=== PATIENT | female | born 1965 | race Caucasian/White ===

== ENCOUNTER 2019-04-30 19:55 | Emergency (ER) | payer SELFPAY ==
--- OUTSIDE RECORDS SUMMARY | 2019-04-30 20:01 | XMS REPORT | Continuity of Care Document ---
:1965 Author Organization [facility] Address [address] [place] [address] Allergies, Adverse Reactions, Alerts Allergen Type Severity Reaction Last Updated Verified Status Tramadol ([id number]) Allergy Unknown March 28, 2019 No Active Penicillins Allergy Unknown March 28, 2019 No Active ([id number]) Medications Medication Status Dose Units Route Sig Qty Days Start End Instructions Date Date Albuterol Discontinu 2 ORAL Every 1 March ed 4-6 , , SUBSTITUTE Hours 2019 2019 EQUIVALENT As 2:22pm COVERED BY Needed INSURANCE for Wheezi ng / Shortn ess Of Breath Albuterol Discontinu 3 RESPIRAT Every 30 March Albuterol 2.5 Sulfate ed ORY 4-6 , , mg/3 ml (INHALAT Hours 2019 2019 inhalation ION) As 2:19pm solution Needed as needed for Wheezi ng / Shortn ess Of Breath Azithromycin Discontinu 1 ORAL As 1 March TAKE 2 ed Direct , TABLETS ON ed for 2019 2019 DAY 1, THEN 1 Infect 2:19pm TABLET ON ion DAYS 2-5 Dextromethorp Discontinu 1 ORAL Twice 20 March [facility] ed Daily , , in * As 2019 2019 Needed 2:19pm as needed for Cough And Conges tion Methylprednisolone Discontinued 1 ORAL As Directed 13 March FOLLOW for 2019 INSTRUCTIONS Inflammation 2:22pm ON DOSEPAK (One-Time) Problems No problem information available. Procedures Procedure Date Performed Status X-ray of chest, two views March 28, 2019 completed Relevant Diagnostic Tests and/or Laboratory Data No known relevant diagnostic tests and/or laboratory data. Health Concerns No known health concerns documented Chief Complaint and Reason for Visit Chief Complaint Influenza Reason for Visit [id number] Encounters Encounter Location(s) Arrival/Admit Date Discharge/Depart Date Provider(s) Departed [place] March 28, 2019 March 28, 2019 RADHA LEBLANC MD Emergency Room [facility] 11:42am 2:44pm Ctr Assessments No Assessments Information Available Functional Status No Functional Status information available Goals No Goals Information Available Immunizations No Immunization Information Available Mental Status No Mental Status Information Available Medical Equipment No Medical Equipment Information available Insurance Providers Guarantor Wayne Kramer Address [address] [facility] [address] Contact Info. Home Phone: Payer Policy Id Coverage Id Subscriber's Subscriber Id Effective Expiration Name Date Date Self Pay Mariela Kramer Plan of Treatment CAN RETURN TO WORK TODAY, ELECTED BY PATIENT. ALBUTEROL FOR NEB & ALBUTEROL INHALER REFILLED. RX FOR ZITHROMAX, MEDROL DOSEPAK & MUCINEX-DM GIVEN. SEE YOUR PCP FOR RECHECK WITHIN 5 DAYS. TAKE TYLENOL & IBUPROFEN NEEDED FOR ACHES OR FEVER Future Tests Future scheduled test information is unavailable Pending Tests Pending diagnostic test information is unavailable Future Visits Future appointment information is unavailable Referrals to Other Providers Reason for Referral Start Provider Provider Contact Provider Address Referral Date Information PHYSICIAN, NO Future Procedures Future procedure information is unavailable Future Medications Future medication information is unavailable Patient Instructions Chronic Obstructive Pulmonary Disease Acute Bronchitis, Adult Social History Smoking Status Status Date of Observation Smokes tobacco daily (finding) March 28, 2019 12:06pm Assigned Sex Female Vital Signs Vital Reading Result Collection Date/Time
--- OUTSIDE RECORDS SUMMARY | 2019-04-30 20:03 | XMS REPORT ---
:1965 [facility] Address [address] [place] [address] Care Team Providers Name Role Phone Unavailable Unavailable Unavailable Problems This patient has no known problems. Allergies, Adverse Reactions, Alerts This patient has no known allergies or adverse reactions. Medications This patient has no known medications. Results Test Description Test Time Test Comments Text Results Atomic Results Result Comments NEG STREP SCRN CONFIRM CULT 2017-07-12 13:28:00 Test Item Value Reference Range Comments Report Text (test code=Report Text) [facility] 2017-07-11 1322 Report Text7 (test code=Report Text7) NORMAL RESPIRATORY TOÑO ISOLATED Report Text8 (test code=Report Text8) PRELIMINARY REPORT Report Text9 (test code=Report Text9) * Report Text10 (test code=Report Text10) [facility] 2017-07-12 1328 Report Text11 (test code=Report Text11) STREP SCREEN NEGATIVE, CULTURE NEGATIVE FOR Report Text12 (test code=Report Text12) GROUP A STREP - FINAL REPORT. VQ SCAN (VENT/LUNG PERFUSION)2017-07-11 20:00:[address] [id number] IMAGING REPORTPatient Name : WAYNE KRAMER MDate of Service: [id number]: 52 Sex: F Order #: [id number] Room:ERSDOB: 1965 X-Ray Number: [id number] Record Number: [id number] Hospital Number: [id number] Physician: Hermilo RANGELing Physician: Renae RAPHAEL ventilation/perfusion study: 8:00 PMHistory: Shortness of breathCorrelation with chest radiographs series dated: 07/11/2017Dosage:10.1 mCi xenon-133 for ventilation.5.0 mCi technetium 99m MAA for perfusion.Findings:There are no ventilation/perfusion mismatches in a distribution to suggestpulmonary embolism.Impression:Low probability for pulmonary embolism.Electronically Signed By: Arsalan Bailey M.D., 07/11/20177:58 PMLegally authenticated by FLOR ZAMUDIO 2017-07-11 19:58:20D- DIMER, [id number] 17:59:00 Test Item Value Reference Range Comments D-DIMER (test 0.88 ug/mL (FEU) 0.27-0.50 VALUES OF QUANTITATIVE D-DIMER code=DDIMER) LESS THAN 0.4 UG/ML HAVE BEEN REPORTED TO BE ASSOCIATED WITH A LOW PROBABILITY OF DEEP VEIN THROMBOSIS/PULMONARYEMBOLISM. THIS TEST ALONE SHOULD NOT BE USED TO RULE OUT DVT/PE. [id number] 17:58:00 Test Item Value Reference Range Comments SODIUM (test code=NA) 134 MMOL/L 137-145 K+ (test code=KSERUM) 5.0 MMOL/L 3.5-5.1 PLEASE NOTE NEW REFERENCE RANGE(S) IN EFFECT EFFECTIVE 10/15/2009 - NEW ANALYZER ([facility] 5600) CHLORIDE (test code=CL) 95 MMOL/L 98-107 CO2 (test code=CO2) 24 MMOL/L 22-30 BUN (test code=BUN) 28 MG/DL 7-17 CREA (test code=CREA) 1.2 MG/DL 0.7-1.2 GLUCOSE (test 286 MG/DL 70-99 Fasting glucose normal code=GLUCOSE) <100 MG/DL- [place] [employer] recommendation CALCIUM (test 10.2 MG/DL 8.4-10.2 code=CABLOOD) TOTPROT (test 7.6 G/DL 6.3-8.2 code=TOTPROT) ALBUMIN (test 4.3 G/DL 3.5-5.0 code=ALBSERUM) BILITOT (test 0.9 MG/DL 0.2-1.3 code=BILITOT) AST (test code=AST) 40 U/L 15-46 PHOSALK (test 437 U/L 38-126 code=PHOSALK) ALT (test code=ALT) 40 U/L 13-69 GFR (test code=GFR) 50 mL/min/1.73m2 A GFR of >90 mL/min/1.73m2 is considered normal. [id number] 17:46:00 Test Item Value Reference Range Comments GLUCOSE (test code=URGLU) NEGATIVE MG/DL NEG-100 BILIRUBN (test code=URBILI) NEGATIVE NEGATIVE KETONE (test code=URKET) NEGATIVE MG/DL NEGATIVE BLOOD (test code=URBLD) NEGATIVE UR PH (test code=URPH) 5.5 5.0-7.5 PROTEIN (test code=URPRO) TRACE MG/DL NEGATIVE NITRITES (test code=URNIT) NEGATIVE NEGATIVE UROBILINGEN (test code=URURO) 0.2 EU/DL 0.2-1.0 LEUKOCYT (test code=URLEU) NEGATIVE NEGATIVE UA COLOR (test code=UA COLOR) YELLOW YELLOW CLARITY (test code=CLARITY) CLEAR CLEAR SP GRAV (test code=URSPGRAV) >=1.030 1.000-1.025 UAMICRO (test code=UAMICRO) NO [id number] 17:46:00 Test Item Value Reference Range Comments WBC (test code=WBC) 9.4 K/UL 3.5-10.9 RBC (test code=RBC) 4.07 M/UL 4.0-5.0 HGB (test code=HGB) 13.0 G/DL 11.5-15.5 HCT (test code=HCT) 38.7 % 34-46 MCV (test code=MCV) 95.1 FL 80-98 MCH (test code=MCH) 31.9 PG 28-32 MCHC (test code=MCHC) 33.6 G/DL 32.5-36.5 RDW (test code=RDW) 16.0 % 11.5-14.5 PLT (test code=PLT) 233 K/UL 150-450 MPV (test code=MPV) 10.1 FL 7.4-10.4 MANDIFF (test code=MANDIFF) NO SCAN (test code=SCAN) NO NEUT% (test code=NEUT%) 80.4 % 40-75 LYMPH% (test code=LYMPH%) 14.0 % 24-44 MONO% (test code=MONO%) 5.1 % 0-13 EOS% (test code=EOS%) 0.0 % 0-4 BASO % (test code=BASO%) 0.2 % 0-2 IG% (test code=IG%) 0.3 % 0-1 IG%=Metamyelocytes, Myelocytes, and Promyelocytes. (Immature neutrophils not including "bands".) > 3% IG indicates risk of sepsis NRBC% (test code=NRBC%) 0 /100 WBC ABS NEUT (test code=NEUT) 7.6 K/UL 1.2-7.2 CHEST XR 2 [id number] 17:44:[address] [id number] IMAGING REPORTPatient Name: WAYNE KRAMER MDate of Service: [id number]: 52 Sex: F Order #: [id number] Room: ERSDOB: 1965 X-Ray Number: [id number] Record Number: [id number] Hospital Number: [id number] Physician: Hermilo RANGELing Physician: Lennie RAPHAEL 2 views 5:30 PMHISTORY: Fever, cough, shortness of breath, bronchitis.Comparisons: 07/10/2017FINDINGS:Heart size is normal.There is no focal lung consolidation.There is no definite pleural effusion or pneumothorax identified.There is emphysema present.There are old healed rib fracture deformities bilaterally.There is osteoporosis.IMPRESSION:No acute cardiopulmonary process.Electronically Signed By: Arsalan Bailey M.D., 2017 5:42 PMLegally authenticated by FLOR ZAMUDIO 2017-07-11 17:42:39CHEST XR 2 [id number] 07:19:[address] [id number] IMAGING REPORTPatient Name: WAYNE KRAMER MDate of Service: [id number]: 52 Sex: F Order #: [id number] Room:QERDOB: 1965 X-Ray Number: [id number] Record Number: [id number] Hospital Number: [id number] Physician: Eli ALEMAN Physician: Lennie RAPHAEL 2 views 12:15 AMComparisons: 06/02/2017HISTORY: Cough.FINDINGS:Heart size is normal.There is no focal lung consolidation.There is no definite pleural effusion or pneumothorax identified.Hyperinflation suggests COPD.IMPRESSION:No acute cardiopulmonary process.EMERGENT INTERPRETATION PROVIDED BY [facility].Electronically Signed By: Arsalan Bailey M.D., 07/10/2017 7:17 AMLegally authenticated by TOÑO 2017-07-10 07:17:03GROUP A STREP [id number] 00:19:00 Test Item Value Reference Range Comments GROUP A STREP SCREEN (test NEGATIVE NEGATIVE Culture set up to confirm code=STREPGRA) negative Strep Screen STREP A INTERNAL POS CNTRL PASS PASS (test code=STRPAIPC) STREP A LOT # (test [id number] code=STRPALOT) STREP A EXPIRATION DATE (test 11-04-2019 code=STRPAEXP) Culture set up to confirm negative Strep ScreenWHOLE BLOOD [id number] 16:49:00 Test Item Value Reference Range Comments WHOLE BLOOD GLUCOSE (test 125 mg/dL 70-99 Fasting glucose normal <100 code=POC GLU) MG/DL- [place] [employer] recommendation WHOLE BLOOD [id number] 11:46:00 Test Item Value Reference Range Comments WHOLE BLOOD GLUCOSE (test 159 mg/dL 70-99 Fasting glucose normal <100 code=POC GLU) MG/DL- [place] [employer] recommendation WHOLE BLOOD [id number] 07:11:00 Test Item Value Reference Range Comments WHOLE BLOOD GLUCOSE (test 87 mg/dL 70-99 Fasting glucose normal <100 code=POC GLU) MG/DL- [place] [employer] recommendation WHOLE BLOOD [id number] 21:30:00 Test Item Value Reference Range Comments WHOLE BLOOD GLUCOSE (test 199 mg/dL 70-99 Fasting glucose normal <100 code=POC GLU) MG/DL- [place] [employer] recommendation WHOLE BLOOD [id number] 21:27:00 Test Item Value Reference Range Comments WHOLE BLOOD GLUCOSE (test 195 mg/dL 70-99 Fasting glucose normal <100 code=POC GLU) MG/DL- [place] [employer] recommendation WHOLE BLOOD [id number] 21:22:00 Test Item Value Reference Range Comments WHOLE BLOOD GLUCOSE (test 124 mg/dL 70-99 Fasting glucose normal <100 code=POC GLU) MG/DL- [place] [employer] recommendation WHOLE BLOOD [id number] 12:08:00 Test Item Value Reference Range Comments WHOLE BLOOD GLUCOSE (test 79 mg/dL 70-99 Fasting glucose normal <100 code=POC GLU) MG/DL- [place] [employer] recommendation WHOLE BLOOD [id number] 22:20:00 Test Item Value Reference Range Comments WHOLE BLOOD GLUCOSE (test 222 mg/dL 70-99 Fasting glucose normal <100 code=POC GLU) MG/DL- [place] [employer] recommendation WHOLE BLOOD [id number] 11:25:00 Test Item Value Reference Range Comments WHOLE BLOOD GLUCOSE (test 193 mg/dL 70-99 Fasting glucose normal <100 code=POC GLU) MG/DL- [place] [employer] recommendation WHOLE BLOOD [id number] 11:24:00 Test Item Value Reference Range Comments WHOLE BLOOD GLUCOSE (test 89 mg/dL 70-99 Fasting glucose normal <100 code=POC GLU) MG/DL- [place] [employer] recommendation WHOLE BLOOD [id number] 19:31:00 Test Item Value Reference Range Comments WHOLE BLOOD GLUCOSE (test 211 mg/dL 70-99 Fasting glucose normal <100 code=POC GLU) MG/DL- [place] [employer] recommendation WHOLE BLOOD [id number] 11:46:00 Test Item Value Reference Range Comments WHOLE BLOOD GLUCOSE (test 167 mg/dL 70-99 Fasting glucose normal <100 code=POC GLU) MG/DL- [place] [employer] recommendation BMP, BASIC METABOLIC [id number] 08:24:00 Test Item Value Reference Range Comments SODIUM (test code=NA) 135 MMOL/L 137-145 K+ (test code=KSERUM) 4.6 MMOL/L 3.5-5.1 PLEASE NOTE NEW REFERENCE RANGE(S) IN EFFECT EFFECTIVE 10/15/2009 - NEW ANALYZER ([facility]) CHLORIDE (test code=CL) 109 MMOL/L 98-107 CO2 (test code=CO2) 19 MMOL/L 22-30 BUN (test code=BUN) 20 MG/DL 7-17 CREA (test code=CREA) 1.0 MG/DL 0.7-1.2 GLUCOSE (test 91 MG/DL 70-99 Fasting glucose normal code=GLUCOSE) <100 MG/DL- [place] [employer] recommendation CALCIUM (test 7.7 MG/DL 8.4-10.2 code=CABLOOD) GFR (test code=GFR) 61 mL/min/1.73m2 A GFR of >90 mL/min/1.73m2 is considered normal. WHOLE BLOOD [id number] 08:12:00 Test Item Value Reference Range Comments WHOLE BLOOD GLUCOSE (test 113 mg/dL 70-99 Fasting glucose normal <100 code=POC GLU) MG/DL- [place] recommendation [id number] 07:49:00 Test Item Value Reference Range Comments WBC (test code=WBC) 7.7 K/UL 3.5-10.9 RBC (test code=RBC) 3.25 M/UL 4.0-5.0 HGB (test code=HGB) 9.8 G/DL 11.5-15.5 HCT (test code=HCT) 29.4 % 34-46 MCV (test code=MCV) 90.5 FL 80-98 MCH (test code=MCH) 30.2 PG 28-32 MCHC (test code=MCHC) 33.3 G/DL 32.5-36.5 RDW (test code=RDW) 14.5 % 11.5-14.5 PLT (test code=PLT) 117 K/UL 150-450 MPV (test code=MPV) 10.2 FL 7.4-10.4 MANDIFF (test code=MANDIFF) NO SCAN (test code=SCAN) NO NEUT% (test code=NEUT%) 61.9 % 40-75 LYMPH% (test code=LYMPH%) 27.7 % 24-44 MONO% (test code=MONO%) 8.2 % 0-13 EOS% (test code=EOS%) 1.2 % 0-4 BASO % (test code=BASO%) 0.5 % 0-2 IG% (test code=IG%) 0.5 % 0-1 IG%=Metamyelocytes, Myelocytes, and Promyelocytes. (Immature neutrophils not including "bands".) > 3% IG indicates risk of sepsis NRBC% (test code=NRBC%) 0 /100 WBC ABS NEUT (test code=NEUT) 4.7 K/UL 1.2-7.2 WHOLE BLOOD [id number] 22:31:00 Test Item Value Reference Range Comments WHOLE BLOOD GLUCOSE (test 242 mg/dL 70-99 Fasting glucose normal <100 code=POC GLU) MG/DL- [place] recommendation WHOLE BLOOD [id number] 20:08:00 Test Item Value Reference Range Comments WHOLE BLOOD GLUCOSE (test 112 mg/dL 70-99 Fasting glucose normal <100 code=POC GLU) MG/DL- [place] [employer] recommendation WHOLE BLOOD [id number] 18:53:00 Test Item Value Reference Range Comments WHOLE BLOOD GLUCOSE (test 324 mg/dL 70-99 Fasting glucose normal <100 code=POC GLU) MG/DL- [place] recommendation WHOLE BLOOD [id number] 18:15:00 Test Item Value Reference Range Comments WHOLE BLOOD GLUCOSE (test 136 mg/dL 70-99 Fasting glucose normal <100 code=POC GLU) MG/DL- [place] recommendation CT THORAX W/O [id number] 16:53:[address] [id number] IMAGING REPORTPatient Name: WAYNE KRAMER MDate of Service: 46-51-6559Dks: 52 Sex: F Order #: [id number] Room: [facility] 5NDOB: 1965 X-Ray Number: [id number] Record Number: [id number] Hospital Number: [id number] Physician: MS MATTHEWONTHIOrdering Physician: SHAAN FERRARO-SURGERYCT of the chest without contrast 4:00 PMHISTORY: RIGHT axilla pain.This CT exam was performed using one or more of the following dosereduction techniques: Automated exposure control, adjustment of the MAand/or KV according to patient size or use of iterative reconstructiontechnique.FINDINGS:Evaluation is suboptimal without IV contrast.There are multiple RIGHT axillary lymph nodes. There is what appears tobea complex fluid collection with a dot of intraluminal gas largest measuresapproximately 5.0 x 3.3 cm. This likely represents an abscess. There isalso soft tissue emphysema and fat stranding within the RIGHT axillaryregion and RIGHT upper arm likely representing infectious or postsurgicalchange.The lungs are clear. There is no pneumothorax. There is no pleuraleffusion.There is an old incompletely healed fracture deformity of the LEFT scapula.There has been cholecystectomy.IMPRESSION:RIGHT axillary abscess and adenopathy with fat stranding and soft tissueemphysema within the axilla and proximal RIGHT upper arm.Electronically Signed By: Arsalan Bailey M.D., 06/09/2017 4:51 PMLegally authenticated by FLOR ZAMUDIO 2017-06-09 16:51:10CULTURE, [id number] 12 :39:00 Test Item Value Reference Range Comments Report Text (test [facility] 2017-06-06 903 code=Report Text) Report Text7 (test NO GROWTH WITHIN 24 HOURS code=Report Text7) Report Text8 (test PRELIMINARY REPORT code=Report Text8) Report Text9 (test code=Report Text9) Report Text10 (test [facility] 2017-06-07 1217 code=Report Text10) Report Text11 (test NO GROWTH WITHIN 48 HOURS code=Report Text11) Report Text12 (test PRELIMINARY REPORT code=Report Text12) Report Text13 (test code=Report Text13) Report Text14 (test [facility] 2017-06-09 1239 code=Report Text14) Report Text15 (test NO ANAEROBIC GROWTH OBSERVED code=Report Text15) Report Text16 (test FINAL REPORT code=Report Text16) WHOLE BLOOD [id number] 11:03:00 Test Item Value Reference Range Comments WHOLE BLOOD GLUCOSE (test 229 mg/dL 70-99 Fasting glucose normal <100 code=POC GLU) MG/DL- [place] [employer] recommendation VANCOMYCIN [id number] 09:48:00 Test Item Value Reference Range Comments VANCTROU (test 15 UG/ML 10-20 In very rare cases heterophile code=VANCTROU) antibodies may interfere with reagent causing erroneously low results. Any Vancomycin level result that is inconsistent with the clinical presentation should be confirmed with an alternate test method. WHOLE BLOOD [id number] 08:14:00 Test Item Value Reference Range Comments WHOLE BLOOD GLUCOSE (test 108 mg/dL 70-99 Fasting glucose normal <100 code=POC GLU) MG/DL- [place] recommendation WHOLE BLOOD [id number] 08:08:00 Test Item Value Reference Range Comments WHOLE BLOOD GLUCOSE (test 169 mg/dL 70-99 Fasting glucose normal <100 code=POC GLU) MG/DL- [place] recommendation WHOLE BLOOD [id number] 18:36:00 Test Item Value Reference Range Comments WHOLE BLOOD GLUCOSE (test 220 mg/dL 70-99 Fasting glucose normal <100 code=POC GLU) MG/DL- [place] [employer] recommendation WHOLE BLOOD [id number] 11:48:00 Test Item Value Reference Range Comments WHOLE BLOOD GLUCOSE (test 184 mg/dL 70-99 Fasting glucose normal <100 code=POC GLU) MG/DL- [place] [employer] recommendation WHOLE BLOOD [id number] 11:46:00 Test Item Value Reference Range Comments WHOLE BLOOD GLUCOSE (test 107 mg/dL 70-99 Fasting glucose normal <100 code=POC GLU) MG/DL- [place] [employer] recommendation WHOLE BLOOD [id number] 11:42:00 Test Item Value Reference Range Comments WHOLE BLOOD GLUCOSE (test 249 mg/dL 70-99 Fasting glucose normal <100 code=POC GLU) MG/DL- [place] recommendation WHOLE BLOOD [id number] 11:41:00 Test Item Value Reference Range Comments WHOLE BLOOD GLUCOSE (test 152 mg/dL 70-99 Fasting glucose normal <100 code=POC GLU) MG/DL- [place] recommendation BMP, BASIC METABOLIC [id number] 08:44:00 Test Item Value Reference Range Comments SODIUM (test code=NA) 132 MMOL/L 137-145 K+ (test code=KSERUM) 4.1 MMOL/L 3.5-5.1 PLEASE NOTE NEW REFERENCE RANGE(S) IN EFFECT EFFECTIVE 10/15/2009 - NEW ANALYZER ([facility]) CHLORIDE (test code=CL) 100 MMOL/L 98-107 CO2 (test code=CO2) 24 MMOL/L 22-30 BUN (test code=BUN) 23 MG/DL 7-17 CREA (test code=CREA) 1.0 MG/DL 0.7-1.2 GLUCOSE (test 118 MG/DL 70-99 Fasting glucose normal code=GLUCOSE) <100 MG/DL- [place] [employer] recommendation CALCIUM (test 8.7 MG/DL 8.4-10.2 code=CABLOOD) GFR (test code=GFR) 61 mL/min/1.73m2 A GFR of >90 mL/min/1.73m2 is considered normal. [id number] 08:26:00 Test Item Value Reference Range Comments WBC (test code=WBC) 13.1 K/UL 3.5-10.9 RBC (test code=RBC) 4.18 M/UL 4.0-5.0 HGB (test code=HGB) 12.7 G/DL 11.5-15.5 HCT (test code=HCT) 38.0 % 34-46 MCV (test code=MCV) 90.9 FL 80-98 MCH (test code=MCH) 30.4 PG 28-32 MCHC (test code=MCHC) 33.4 G/DL 32.5-36.5 RDW (test code=RDW) 14.3 % 11.5-14.5 PLT (test code=PLT) 155 K/UL 150-450 MPV (test code=MPV) 9.7 FL 7.4-10.4 MANDIFF (test code=MANDIFF) NO SCAN (test code=SCAN) NO NEUT% (test code=NEUT%) 74.1 % 40-75 LYMPH% (test code=LYMPH%) 18.8 % 24-44 MONO% (test code=MONO%) 5.6 % 0-13 EOS% (test code=EOS%) 0.8 % 0-4 BASO % (test code=BASO%) 0.3 % 0-2 IG% (test code=IG%) 0.4 % 0-1 IG%=Metamyelocytes, Myelocytes, and Promyelocytes. (Immature neutrophils not including "bands".) > 3% IG indicates risk of sepsis NRBC% (test code=NRBC%) 0 /100 WBC ABS NEUT (test code=NEUT) 9.7 K/UL 1.2-7.2 WHOLE BLOOD [id number] 16:11:00 Test Item Value Reference Range Comments WHOLE BLOOD GLUCOSE (test 145 mg/dL 70-99 Fasting glucose normal <100 code=POC GLU) MG/DL- [place] [employer] recommendation CULTURE, [id number] 12:04:00 Test Item Value Reference Range Comments CULTABSC (test code=CULTABSC) ==== CULTABSC (test rauc=[id number]) ==== [facility] 2017-06-06 902 MRSA ISOLATED IN ABSCESS CULTURE; CONTACT PRECAUTIONS INDICATED FOR INPATIENTS CALLED TO/READ BACK BY:Nohelia BONDS CALLED INFECTION PREVENTION @9:02 [facility] 2017-06-06 903 ID AND/OR SENSITIVITY TO FOLLOW PRELIMINARY REPORT WHOLE BLOOD [id number] 10:56 :00 Test Item Value Reference Range Comments WHOLE BLOOD GLUCOSE (test 139 mg/dL 70-99 Fasting glucose normal <100 code=POC GLU) MG/DL- [place] [employer] recommendation BMP, BASIC METABOLIC [id number] 10:16:00 Test Item Value Reference Range Comments SODIUM (test code=NA) 129 MMOL/L 137-145 K+ (test code=KSERUM) 4.6 MMOL/L 3.5-5.1 PLEASE NOTE NEW REFERENCE RANGE(S) IN EFFECT EFFECTIVE 10/15/2009 - NEW ANALYZER ([facility]) CHLORIDE (test code=CL) 96 MMOL/L 98-107 CO2 (test code=CO2) 20 MMOL/L 22-30 BUN (test code=BUN) 21 MG/DL 7-17 CREA (test code=CREA) 1.1 MG/DL 0.7-1.2 GLUCOSE (test 130 MG/DL 70-99 Fasting glucose normal code=GLUCOSE) <100 MG/DL- [place] [employer] recommendation CALCIUM (test 9.1 MG/DL 8.4-10.2 code=CABLOOD) GFR (test code=GFR) 55 mL/min/1.73m2 A GFR of >90 mL/min/1.73m2 is considered normal. [id number] 09:51:00 Test Item Value Reference Range Comments WBC (test code=WBC) 18.1 K/UL 3.5-10.9 RBC (test code=RBC) 4.13 M/UL 4.0-5.0 HGB (test code=HGB) 12.8 G/DL 11.5-15.5 HCT (test code=HCT) 37.6 % 34-46 MCV (test code=MCV) 91.0 FL 80-98 MCH (test code=MCH) 31.0 PG 28-32 MCHC (test code=MCHC) 34.0 G/DL 32.5-36.5 RDW (test code=RDW) 14.3 % 11.5-14.5 PLT (test code=PLT) 167 K/UL 150-450 MPV (test code=MPV) 10.5 FL 7.4-10.4 MANDIFF (test code=MANDIFF) NO SCAN (test code=SCAN) NO NEUT% (test code=NEUT%) 85.7 % 40-75 LYMPH% (test code=LYMPH%) 9.4 % 24-44 MONO% (test code=MONO%) 4.0 % 0-13 EOS% (test code=EOS%) 0.1 % 0-4 BASO % (test code=BASO%) 0.2 % 0-2 IG% (test code=IG%) 0.6 % 0-1 IG%=Metamyelocytes, Myelocytes, and Promyelocytes. (Immature neutrophils not including "bands".) > 3% IG indicates risk of sepsis NRBC% (test code=NRBC%) 0 /100 WBC ABS NEUT (test code=NEUT) 15.5 K/UL 1.2-7.2 VANCOMYCIN [id number] 09:27:00 Test Item Value Reference Range Comments VANCTROU (test 17 UG/ML 10-20 In very rare cases heterophile code=VANCTROU) antibodies may interfere with reagent causing erroneously low results. Any Vancomycin level result that is inconsistent with the clinical presentation should be confirmed with an alternate test method. BLOOD [id number] 07:08:00 Test Item Value Reference Range Comments Report Text (test LOT 2017-06-02 1040 code=Report Text) Report Text7 (test BLOOD CULTURES HELD FOR 5 DAYS code=Report Text7) BEFORE FINAL Report Text8 (test code=Report Text8) Report Text9 (test [employer] code=Report Text9) SUGGESTS THAT Report Text10 (test MOST CASES OF BACTEREMIA ARE code=Report Text10) DETECTED BY USING Report Text11 (test THREE SETS OF SEPARATELY COLLECTED code=Report Text11) BLOOD CULTURES. Report Text12 (test LOT 2017-06-02 1041 code=Report Text12) Report Text13 (test CONVERSELY, A SINGLE BLOOD CULTURE code=Report Text13) MAY MISS Report Text14 (test INTERMITTENTLY OCCURRING code=Report Text14) BACTEREMIA AND MAKE Report Text15 (test IT DIFFICULT TO INTERPRET THE code=Report Text15) CLINICAL Report Text16 (test SIGNIFICANCE OF CERTAIN ISOLATED code=Report Text16) ORGANISMS. Report Text17 (test code=Report Text17) Report Text18 (test LOT 2017-06-02 1042 code=Report Text18) Report Text19 (test DRAWN FROM LEFT code=Report Text19) ANTICUBITAL VEIN Report Text20 (test code=Report Text20) Report Text21 (test PDG 2017-06-04 934 code=Report Text21) Report Text22 (test NO GROWTH WITHIN 1 DAY code=Report Text22) Report Text23 (test PRELIMINARY REPORT code=Report Text23) Report Text24 (test code=Report Text24) Report Text25 (test PDG 2017-06-04 941 code=Report Text25) Report Text26 (test NO GROWTH WITHIN 2 DAYS code=Report Text26) Report Text27 (test PRELIMINARY REPORT code=Report Text27) Report Text28 (test code=Report Text28) Report Text29 (test PDG 2017-06-07 708 code=Report Text29) Report Text30 (test NO GROWTH WITHIN 5 DAYS code=Report Text30) Report Text31 (test FINAL REPORT code=Report Text31) BLOOD [id number] 07:08:00 Test Item Value Reference Range Comments Report Text (test LOT 2017-06-02 1040 code=Report Text) Report Text7 (test BLOOD CULTURES HELD FOR 5 DAYS code=Report Text7) BEFORE FINAL Report Text8 (test code=Report Text8) Report Text9 (test [employer]Y OF MICROBIOLOGY code=Report Text9) SUGGESTS THAT Report Text10 (test MOST CASES OF BACTEREMIA ARE code=Report Text10) DETECTED BY USING Report Text11 (test THREE SETS OF SEPARATELY COLLECTED code=Report Text11) BLOOD CULTURES. Report Text12 (test LOT 2017-06-02 1041 code=Report Text12) Report Text13 (test CONVERSELY, A SINGLE BLOOD CULTURE code=Report Text13) MAY MISS Report Text14 (test INTERMITTENTLY OCCURRING code=Report Text14) BACTEREMIA AND MAKE Report Text15 (test IT DIFFICULT TO INTERPRET THE code=Report Text15) CLINICAL Report Text16 (test SIGNIFICANCE OF CERTAIN ISOLATED code=Report Text16) ORGANISMS. Report Text17 (test code=Report Text17) Report Text18 (test LOT 2017-06-02 1042 code=Report Text18) Report Text19 (test DRAWN FROM LEFT code=Report Text19) ANTICUBITAL VEIN Report Text20 (test code=Report Text20) Report Text21 (test [facility] 2017-06-04 934 code=Report Text21) Report Text22 (test NO GROWTH WITHIN 1 DAY code=Report Text22) Report Text23 (test PRELIMINARY REPORT code=Report Text23) Report Text24 (test code=Report Text24) Report Text25 (test [facility] 2017-06-04 941 code=Report Text25) Report Text26 (test NO GROWTH WITHIN 2 DAYS code=Report Text26) Report Text27 (test PRELIMINARY REPORT code=Report Text27) Report Text28 (test code=Report Text28) Report Text29 (test PDG 2017-06-07 708 code=Report Text29) Report Text30 (test NO GROWTH WITHIN 5 DAYS code=Report Text30) Report Text31 (test FINAL REPORT code=Report Text31) WHOLE BLOOD [id number] 22:16:00 Test Item Value Reference Range Comments WHOLE BLOOD GLUCOSE (test 285 mg/dL 70-99 Fasting glucose normal <100 code=POC GLU) MG/DL- [employer] recommendation WHOLE BLOOD [id number] 16:31:00 Test Item Value Reference Range Comments WHOLE BLOOD GLUCOSE (test 144 mg/dL 70-99 Fasting glucose normal <100 code=POC GLU) MG/DL- [employer] recommendation WHOLE BLOOD [id number] 11:18:00 Test Item Value Reference Range Comments WHOLE BLOOD GLUCOSE (test 170 mg/dL 70-99 Fasting glucose normal <100 code=POC GLU) MG/DL- [employer] recommendation WHOLE BLOOD [id number] 07:51:00 Test Item Value Reference Range Comments WHOLE BLOOD GLUCOSE (test 101 mg/dL 70-99 Fasting glucose normal <100 code=POC GLU) MG/DL- [employer] recommendation WHOLE BLOOD [id number] 20:41:00 Test Item Value Reference Range Comments WHOLE BLOOD GLUCOSE (test 173 mg/dL 70-99 Fasting glucose normal <100 code=POC GLU) MG/DL- [employer] recommendation WHOLE BLOOD [id number] 17:30:00 Test Item Value Reference Range Comments WHOLE BLOOD GLUCOSE (test 220 mg/dL 70-99 Fasting glucose normal <100 code=POC GLU) MG/DL- [employer] recommendation GRAM [id number] 12:24:00 Test Item Value Reference Range Comments Report Text (test code=Report DMB 2017-06-05 1224 Text) Report Text7 (test code=Report MANY WBC SEEN Text7) Report Text8 (test code=Report DMB 2017-06-05 1225 Text8) Report Text9 (test code=Report FEW GRAM POSITIVE COCCI SEEN Text9) ER SCREEN FOR HIV / 11:29:00 Test Item Value Reference Range Comments HIV 1/2 AB (test NONREACTIVE NONREACTIVE This test is used for SCREENING code=SCRN HIV) purposes only. All reactive results are prelimenary and confirmation results will follow. WHOLE BLOOD [id number] 09:34:00 Test Item Value Reference Range Comments WHOLE BLOOD GLUCOSE (test 87 mg/dL 70-99 Fasting glucose normal <100 code=POC GLU) MG/DL- [employer] recommendation BMP, BASIC METABOLIC [id number] 08:56:00 Test Item Value Reference Range Comments SODIUM (test code=NA) 129 MMOL/L 137-145 K+ (test code=KSERUM) 3.6 MMOL/L 3.5-5.1 PLEASE NOTE NEW REFERENCE RANGE(S) IN EFFECT EFFECTIVE 10/15/2009 - NEW ANALYZER ([facility]) CHLORIDE (test code=CL) 97 MMOL/L 98-107 CO2 (test code=CO2) 24 MMOL/L 22-30 BUN (test code=BUN) 23 MG/DL 7-17 CREA (test code=CREA) 1.1 MG/DL 0.7-1.2 GLUCOSE (test 93 MG/DL 70-99 Fasting glucose normal code=GLUCOSE) <100 MG/DL- [employer] recommendation CALCIUM (test 9.1 MG/DL 8.4-10.2 code=CABLOOD) GFR (test code=GFR) 55 mL/min/1.73m2 A GFR of >90 mL/min/1.73m2 is considered normal. [id number] 08:36:00 Test Item Value Reference Range Comments WBC (test code=WBC) 12.7 K/UL 3.5-10.9 RBC (test code=RBC) 4.47 M/UL 4.0-5.0 HGB (test code=HGB) 13.7 G/DL 11.5-15.5 HCT (test code=HCT) 39.7 % 34-46 MCV (test code=MCV) 88.8 FL 80-98 MCH (test code=MCH) 30.6 PG 28-32 MCHC (test code=MCHC) 34.5 G/DL 32.5-36.5 RDW (test code=RDW) 13.7 % 11.5-14.5 PLT (test code=PLT) 220 K/UL 150-450 MPV (test code=MPV) 9.6 FL 7.4-10.4 MANDIFF (test code=MANDIFF) NO SCAN (test code=SCAN) NO NEUT% (test code=NEUT%) 69.5 % 40-75 LYMPH% (test code=LYMPH%) 22.5 % 24-44 MONO% (test code=MONO%) 6.5 % 0-13 EOS% (test code=EOS%) 0.7 % 0-4 BASO % (test code=BASO%) 0.2 % 0-2 IG% (test code=IG%) 0.6 % 0-1 IG%=Metamyelocytes, Myelocytes, and Promyelocytes. (Immature neutrophils not including "bands".) > 3% IG indicates risk of sepsis NRBC% (test code=NRBC%) 0 /100 WBC ABS NEUT (test code=NEUT) 8.8 K/UL 1.2-7.2 WHOLE BLOOD [id number] 08:02:00 Test Item Value Reference Range Comments WHOLE BLOOD GLUCOSE (test 105 mg/dL 70-99 Fasting glucose normal <100 code=POC GLU) MG/DL- [employer] recommendation WHOLE BLOOD [id number] 21:32:00 Test Item Value Reference Range Comments WHOLE BLOOD GLUCOSE (test 141 mg/dL 70-99 Fasting glucose normal <100 code=POC GLU) MG/DL- [place] recommendation WHOLE BLOOD [id number] 21:01:00 Test Item Value Reference Range Comments WHOLE BLOOD GLUCOSE (test 135 mg/dL 70-99 Fasting glucose normal <100 code=POC GLU) MG/DL- [employer] recommendation [id number] 15:44:00 Test Item Value Reference Range Comments WBC (test code=WBC) 17.1 K/UL 3.5-10.9 RBC (test code=RBC) 5.2 M/UL 4.0-5.0 HGB (test code=HGB) 15.8 G/DL 11.5-15.5 HCT (test code=HCT) 44.4 % 34-46 MCV (test code=MCV) 85.9 FL 80-98 MCH (test code=MCH) 30.6 PG 28-32 MCHC (test code=MCHC) 35.6 G/DL 32.5-36.5 RDW (test code=RDW) 13.3 % 11.5-14.5 PLT (test code=PLT) 306 K/UL 150-450 MPV (test code=MPV) 10.3 FL 7.4-10.4 MANDIFF (test code=MANDIFF) NO SCAN (test code=SCAN) NO NEUT% (test code=NEUT%) 67.2 % 40-75 LYMPH% (test code=LYMPH%) 24.2 % 24-44 MONO% (test code=MONO%) 7.4 % 0-13 EOS% (test code=EOS%) 0.4 % 0-4 BASO % (test code=BASO%) 0.2 % 0-2 IG (test code=IG) 0.6 % 0-1 CT HEAD W/O [id number] 12:52:[address] [id number] IMAGING REPORTPatient Name: WAYNE KRAMER MDate of Service: [id number]: 52 Sex: F Order #: [id number] Room: [address] [place], [place] [address]OB: 1965 X-Ray Number: [id number] Record Number: [id number] Hospital Number: [id number] Physician: ALPHONSO DOSHI POrdering Physician: SHAAN FERRARO-SURGERYHead CT 06/03/2017History: AMS. Altered mental status. Altered level of consciousness. Newonset dizziness.Comparison: NoneTechnique: Unenhanced CT imaging of the head. This CT exam was performedusing oneor more of the following dose reduction techniques : Automatedexposure control, adjustment of the mA and/or KV according to patient size,or use of iterative reconstruction technique.Findings:There is noevidence of acute intracranial abnormality. Specifically, thereis no evidence of acute hemorrhage, infarct, contusion, hydrocephalus,midline shift, or abnormal extra-axial collection. The calvarium is intact.The paranasal sinuses and mastoid air cells are clear.Impression:1. No acute intracranial abnormality.Electronically Signed By: Víctor Goldstein M.D., 06/04/2017 12:49 PMLegally authenticated by PEPE ARANDA 2017-06-04 12:49:48% HEMOGLOBIN A1C ( GLYCATED)2017-06-04 12:21:00 Test Item Value Reference Range Comments HEMOGLOBIN A1C (test 10.0 % 0-6 THERAPEUTIC TARGET FOR THE code=GLYCO-) TREATMENT OF DIABETES MELLITUS PATIENTS IS < 7% HBA1C. [employer]. DIABETES CARE 2002;25:S33-S49 [id number] 12:20:00 Test Item Value Reference Range Comments SODIUM (test code=NA) 124 MMOL/L 137-145 K+ (test code=KSERUM) 4.1 MMOL/L 3.5-5.1 PLEASE NOTE NEW REFERENCE RANGE(S) IN EFFECT EFFECTIVE 10/15/2009 - NEW ANALYZER ([facility]) CHLORIDE (test code=CL) 89 MMOL/L 98-107 CO2 (test code=CO2) 20 MMOL/L 22-30 BUN (test code=BUN) 41 MG/DL 7-17 CREA (test code=CREA) 1.2 MG/DL 0.7-1.2 GLUCOSE (test 128 MG/DL 70-99 Fasting glucose normal code=GLUCOSE) <100 MG/DL- [employer] recommendation CALCIUM (test 9.2 MG/DL 8.4-10.2 code=CABLOOD) TOTPROT (test 6.2 G/DL 6.3-8.2 code=TOTPROT) ALBUMIN (test 3.3 G/DL 3.5-5.0 code=ALBSERUM) BILITOT (test 0.8 MG/DL 0.2-1.3 code=BILITOT) AST (test code=AST) 44 U/L 15-46 PHOSALK (test 692 U/L 38-126 code=PHOSALK) ALT (test code=ALT) 63 U/L 13-69 GFR (test code=GFR) 50 mL/min/1.73m2 A GFR of >90 mL/min/1.73m2 is considered normal. WHOLE BLOOD [id number] 11:31:00 Test Item Value Reference Range Comments WHOLE BLOOD GLUCOSE (test 183 mg/dL 70-99 Fasting glucose normal <100 code=POC GLU) MG/DL- [employer] recommendation BMP, BASIC METABOLIC [id number] 09:14:00 Test Item Value Reference Range Comments SODIUM (test code=NA) 129 MMOL/L 137-145 K+ (test code=KSERUM) 3.4 MMOL/L 3.5-5.1 PLEASE NOTE NEW REFERENCE RANGE(S) IN EFFECT EFFECTIVE 10/15/2009 - NEW ANALYZER ([facility]) CHLORIDE (test code=CL) 94 MMOL/L 98-107 CO2 (test code=CO2) 24 MMOL/L 22-30 BUN (test code=BUN) 24 MG/DL 7-17 CREA (test code=CREA) 1.1 MG/DL 0.7-1.2 GLUCOSE (test 90 MG/DL 70-99 Fasting glucose normal code=GLUCOSE) <100 MG/DL- [employer] recommendation CALCIUM (test 9.4 MG/DL 8.4-10.2 code=CABLOOD) GFR (test code=GFR) 55 mL/min/1.73m2 A GFR of >90 mL/min/1.73m2 is considered normal. VANCOMYCIN [id number] 09:14:00 Test Item Value Reference Range Comments VANCTROU (test 13 UG/ML 10-20 In very rare cases heterophile code=VANCTROU) antibodies may interfere with reagent causing erroneously low results. Any Vancomycin level result that is inconsistent with the clinical presentation should be confirmed with an alternate test method. [id number] 08:38:00 Test Item Value Reference Range Comments WBC (test code=WBC) 14.4 K/UL 3.5-10.9 RBC (test code=RBC) 4.97 M/UL 4.0-5.0 HGB (test code=HGB) 15.2 G/DL 11.5-15.5 HCT (test code=HCT) 43.6 % 34-46 MCV (test code=MCV) 87.7 FL 80-98 MCH (test code=MCH) 30.6 PG 28-32 MCHC (test code=MCHC) 34.9 G/DL 32.5-36.5 RDW (test code=RDW) 13.4 % 11.5-14.5 PLT (test code=PLT) 228 K/UL 150-450 MPV (test code=MPV) 9.6 FL 7.4-10.4 MANDIFF (test code=MANDIFF) NO SCAN (test code=SCAN) NO NEUT% (test code=NEUT%) 71.2 % 40-75 LYMPH% (test code=LYMPH%) 22.2 % 24-44 MONO% (test code=MONO%) 5.4 % 0-13 EOS% (test code=EOS%) 0.4 % 0-4 BASO % (test code=BASO%) 0.2 % 0-2 IG% (test code=IG%) 0.6 % 0-1 IG%=Metamyelocytes, Myelocytes, and Promyelocytes. (Immature neutrophils not including "bands".) > 3% IG indicates risk of sepsis NRBC% (test code=NRBC%) 0 /100 WBC ABS NEUT (test code=NEUT) 10.2 K/UL 1.2-7.2 WHOLE BLOOD [id number] 07:51:00 Test Item Value Reference Range Comments WHOLE BLOOD GLUCOSE (test 90 mg/dL 70-99 Fasting glucose normal <100 code=POC GLU) MG/DL- [place] recommendation WHOLE BLOOD [id number] 05:23:00 Test Item Value Reference Range Comments WHOLE BLOOD GLUCOSE (test 142 mg/dL 70-99 Fasting glucose normal <100 code=POC GLU) MG/DL- [employer] recommendation WHOLE BLOOD [id number] 05:21:00 Test Item Value Reference Range Comments WHOLE BLOOD GLUCOSE (test 199 mg/dL 70-99 Fasting glucose normal <100 code=POC GLU) MG/DL- [employer] recommendation BMP, BASIC METABOLIC [id number] 22:30:00 Test Item Value Reference Range Comments SODIUM (test code=NA) 120 MMOL/L 137-145 K+ (test code=KSERUM) 3.8 MMOL/L 3.5-5.1 PLEASE NOTE NEW REFERENCE RANGE(S) IN EFFECT EFFECTIVE 10/15/2009 - NEW ANALYZER ([facility]) CHLORIDE (test code=CL) 87 MMOL/L 98-107 CO2 (test code=CO2) 23 MMOL/L 22-30 BUN (test code=BUN) 46 MG/DL 7-17 CREA (test code=CREA) 1.3 MG/DL 0.7-1.2 GLUCOSE (test 144 MG/DL 70-99 Fasting glucose normal code=GLUCOSE) <100 MG/DL- [employer] recommendation CALCIUM (test 9.4 MG/DL 8.4-10.2 code=CABLOOD) GFR (test code=GFR) 45 mL/min/1.73m2 A GFR of >90 mL/min/1.73m2 is considered normal. [id number] 22:07:00 Test Item Value Reference Range Comments WBC (test code=WBC) 16.5 K/UL 3.5-10.9 RBC (test code=RBC) 5.14 M/UL 4.0-5.0 HGB (test code=HGB) 15.6 G/DL 11.5-15.5 HCT (test code=HCT) 43.8 % 34-46 MCV (test code=MCV) 85.2 FL 80-98 MCH (test code=MCH) 30.4 PG 28-32 MCHC (test code=MCHC) 35.6 G/DL 32.5-36.5 RDW (test code=RDW) 13.1 % 11.5-14.5 PLT (test code=PLT) 298 K/UL 150-450 MPV (test code=MPV) 9.8 FL 7.4-10.4 MANDIFF (test code=MANDIFF) NO SCAN (test code=SCAN) NO NEUT% (test code=NEUT%) 64.5 % 40-75 LYMPH% (test code=LYMPH%) 26.9 % 24-44 MONO% (test code=MONO%) 7.6 % 0-13 EOS% (test code=EOS%) 0.4 % 0-4 BASO % (test code=BASO%) 0.2 % 0-2 IG% (test code=IG%) 0.4 % 0-1 IG%=Metamyelocytes, Myelocytes, and Promyelocytes. (Immature neutrophils not including "bands".) > 3% IG indicates risk of sepsis NRBC% (test code=NRBC%) 0 /100 WBC ABS NEUT (test code=NEUT) 10.6 K/UL 1.2-7.2 WHOLE BLOOD [id number] 21:44:00 Test Item Value Reference Range Comments WHOLE BLOOD GLUCOSE (test 152 mg/dL 70-99 Fasting glucose normal <100 code=POC GLU) MG/DL- [employer] recommendation ULTRASOUND [id number] 20:26:[address] [id number] IMAGING REPORTPatient Name: WAYNE KRAMER MDate of Service: 90-55-0309Gsn: 52 Sex: F Order #: [id number] Room: [facility]/ A 5NDOB: 1965 X-Ray Number: [id number] Record Number: [id number] Hospital Number: [id number] Physician: ALPHONSO DOSHI POrdering Physician: SHAAN FERRARO-SURGERYULTRASOUND AXILLA, 06/02/2017 5: 03 PM:History: . . Right axillary and right arm pain with swellingand anopen wound with drainage.Comparison: None.Technique: Grayscale and color Doppler imaging of the area of interestinvolving the right arm and right axilla was performedFindings/Impression:The imaged soft tissues of the right arm and right axilla are normal. Thereis no focal fluid collection. There is no soft tissue mass evident. Thereis no associated hyperemia within this region.Electronically Signed By: Víctor Goldstein M.D., 06/02/2017 8:24 PMLegally authenticated by PEPE ARANDA 2017-06-02 20:24:03WHOLE BLOOD [id number] 16:33:00 Test Item Value Reference Range Comments WHOLE BLOOD GLUCOSE (test 208 mg/dL 70-99 Fasting glucose normal <100 code=POC GLU) MG/DL- [place] recommendation [id number] 10:13:[address] [id number] IMAGING REPORTPatient Name: WAYNE KRAMER MDate of Service: 35-05-4270Dok: 52 Sex: F Order #: [id number] Room:ERSDOB: X-Ray Number: [id number] Record Number: [id number] Hospital Number: [id number] Physician: [facility] Physician: DANILO BERKOWITZ humerus 2 views 10:00 AMHISTORY: RIGHT arm pain.FINDINGS:There is no acute fracture or dislocation.There are no lytic or blastic bone lesions.There are no definite osseous erosions or bony destruction detected.There is no radiopaque foreign body.There is no soft tissue gas present.IMPRESSION:No acute bony abnormality is identified.Electronically Signed By: Arsalan Bailey M.D., 06/02/2017 10:11 AMLegally authenticated by TOÑO 2017-06-02 10:11:34CHEST XR 2 [id number] 09:34:[address] [id number] IMAGING REPORTPatient Name: WAYNE KRAMER MDate of Service: 28-21-2753Rag: 52 Sex: F Order #: [id number] Room:[facility]: 1965 X-Ray Number: [id number] Record Number: [id number] Hospital Number: [id number] Physician: [facility] Physician: DANILO BERKOWITZ 2 views 9:00 AMCOMPARISON: 05/13/2017HISTORY: Arm pain.FINDINGS:Heart size is normal.There is no focal lung consolidation.Thereis no definite pleural effusion or pneumothorax identified.Mild hyperinflation could relate to COPD.There are old healed bilateral rib fracture deformities.IMPRESSION:No acute cardiopulmonary process.Electronically Signed By: Arsalan Bailey M.D., 06/02/2017 9:31 AMLegally authenticated by FLOR [id number] 09:31:[id number] 09:29:00 Test Item Value Reference Range Comments SODIUM (test code=NA) 119 MMOL/L 137-145 K+ (test code=KSERUM) 3.7 MMOL/L 3.5-5.1 PLEASE NOTE NEW REFERENCE RANGE(S) IN EFFECT EFFECTIVE 10/15/2009 - NEW ANALYZER ([facility]) CHLORIDE (test code=CL) 81 MMOL/L 98-107 CO2 (test code=CO2) 23 MMOL/L 22-30 BUN (test code=BUN) 51 MG/DL 7-17 CREA (test code=CREA) 1.6 MG/DL 0.7-1.2 GLUCOSE (test 224 MG/DL 70-99 Fasting glucose normal code=GLUCOSE) <100 MG/DL- [place] recommendation CALCIUM (test 9.9 MG/DL 8.4-10.2 code=CABLOOD) TOTPROT (test 7.5 G/DL 6.3-8.2 code=TOTPROT) ALBUMIN (test 4.0 G/DL 3.5-5.0 code=ALBSERUM) BILITOT (test 0.8 MG/DL 0.2-1.3 code=BILITOT) AST (test code=AST) 47 U/L 15-46 PHOSALK (test 925 U/L 38-126 code=PHOSALK) ALT (test code=ALT) 75 U/L 13-69 GFR (test code=GFR) 36 mL/min/1.73m2 A GFR of >90 mL/min/1.73m2 is considered normal. RESULTS VERIFIED.C'd TO Karen MORRIS,RN/ER @ 0925 06/02/17--[id number] 08:58: 00 Test Item Value Reference Range Comments WBC (test code=WBC) 18.5 K/UL 3.5-10.9 RBC (test code=RBC) 5.34 M/UL 4.0-5.0 HGB (test code=HGB) 16.3 G/DL 11.5-15.5 HCT (test code=HCT) 46.2 % 34-46 MCV (test code=MCV) 86.5 FL 80-98 MCH (test code=MCH) 30.5 PG 28-32 MCHC (test code=MCHC) 35.3 G/DL 32.5-36.5 RDW (test code=RDW) 13.2 % 11.5-14.5 PLT (test code=PLT) 390 K/UL 150-450 MPV (test code=MPV) 9.8 FL 7.4-10.4 MANDIFF (test code=MANDIFF) NO SCAN (test code=SCAN) NO NEUT% (test code=NEUT%) 68.6 % 40-75 LYMPH% (test code=LYMPH%) 24.1 % 24-44 MONO% (test code=MONO%) 6.1 % 0-13 EOS% (test code=EOS%) 0.4 % 0-4 BASO % (test code=BASO%) 0.3 % 0-2 IG% (test code=IG%) 0.5 % 0-1 IG%=Metamyelocytes, Myelocytes, and Promyelocytes. (Immature neutrophils not including "bands".) > 3% IG indicates risk of sepsis NRBC% (test code=NRBC%) 0 /100 WBC ABS NEUT (test code=NEUT) 12.7 K/UL 1.2-7.2 BLOOD [id number] 07:16:00 Test Item Value Reference Range Comments Report Text (test [facility] 2017-05-131415 code=Report Text) Report Text7 (test BLOOD CULTURES HELD FOR 5 DAYS code=Report Text7) BEFORE FINAL Report Text8 (test code=Report Text8) Report Text9 (test [employer] code=Report Text9) SUGGESTS THAT Report Text10 (test MOST CASES OF BACTEREMIA ARE code=Report Text10) DETECTED BY USING Report Text11 (test THREE SETS OF SEPARATELY COLLECTED code=Report Text11) BLOOD CULTURES. Report Text12 (test [facility] 2017-05-131416 code=Report Text12) Report Text13 (test CONVERSELY, A SINGLE BLOOD CULTURE code=Report Text13) MAY MISS Report Text14 (test INTERMITTENTLY OCCURRING code=Report Text14) BACTEREMIA AND MAKE Report Text15 (test IT DIFFICULT TO INTERPRET THE code=Report Text15) CLINICAL Report Text16 (test SIGNIFICANCE OF CERTAIN ISOLATED code=Report Text16) ORGANISMS. Report Text17 (test code=Report Text17) Report Text18 (test [facility] 2017-05-131417 code=Report Text18) Report Text19 (test COLLECTION SITE code=Report Text19) UNSPECIFIED Report Text20 (test [facility] 2017-05-14 1342 code=Report Text20) Report Text21 (test NO GROWTH WITHIN 1 DAY code=Report Text21) Report Text22 (test PRELIMINARY REPORT code=Report Text22) Report Text23 (test code=Report Text23) Report Text24 (test [facility] 2017-05-15 653 code=Report Text24) Report Text25 (test NO GROWTH WITHIN 2 DAYS code=Report Text25) Report Text26 (test PRELIMINARY REPORT code=Report Text26) Report Text27 (test code=Report Text27) Report Text28 (test [facility] 2017-05-18 716 code=Report Text28) Report Text29 (test NO GROWTH WITHIN 5 DAYS code=Report Text29) Report Text30 (test FINAL REPORT code=Report Text30) BLOOD [id number] 07:16:00 Test Item Value Reference Range Comments Report Text (test [facility] 2017-05-13 1228 code=Report Text) Report Text7 (test BLOOD CULTURES HELD FOR 5 DAYS code=Report Text7) BEFORE FINAL Report Text8 (test code=Report Text8) Report Text9 (test [employer] code=Report Text9) SUGGESTS THAT Report Text10 (test MOST CASES OF BACTEREMIA ARE code=Report Text10) DETECTED BY USING Report Text11 (test THREE SETS OF SEPARATELY COLLECTED code=Report Text11) BLOOD CULTURES. Report Text12 (test [facility] 2017-05-13 1229 code=Report Text12) Report Text13 (test CONVERSELY, A SINGLE BLOOD CULTURE code=Report Text13) MAY MISS Report Text14 (test INTERMITTENTLY OCCURRING code=Report Text14) BACTEREMIA AND MAKE Report Text15 (test IT DIFFICULT TO INTERPRET THE code=Report Text15) CLINICAL Report Text16 (test SIGNIFICANCE OF CERTAIN ISOLATED code=Report Text16) ORGANISMS. Report Text17 (test code=Report Text17) Report Text18 (test [facility] 2017-05-13 1230 code=Report Text18) Report Text19 (test COLLECTION SITE code=Report Text19) UNSPECIFIED Report Text20 (test [facility] 2017-05-14 1342 code=Report Text20) Report Text21 (test NO GROWTH WITHIN 1 DAY code=Report Text21) Report Text22 (test PRELIMINARY REPORT code=Report Text22) Report Text23 (test code=Report Text23) Report Text24 (test B 2017-05-15 653 code=Report Text24) Report Text25 (test NO GROWTH WITHIN 2 DAYS code=Report Text25) Report Text26 (test PRELIMINARY REPORT code=Report Text26) Report Text27 (test code=Report Text27) Report Text28 (test [facility] 2017-05-18 716 code=Report Text28) Report Text29 (test NO GROWTH WITHIN 5 DAYS code=Report Text29) Report Text30 (test FINAL REPORT code=Report Text30) WHOLE BLOOD [id number] 09:57:00 Test Item Value Reference Range Comments WHOLE BLOOD GLUCOSE (test 251 mg/dL 70-99 Fasting glucose normal <100 code=POC GLU) MG/DL- [employer] recommendation WHOLE BLOOD [id number] 08:19:00 Test Item Value Reference Range Comments WHOLE BLOOD GLUCOSE (test 211 mg/dL 70-99 Fasting glucose normal <100 code=POC GLU) MG/DL- [employer] recommendation BMP, BASIC METABOLIC [id number] 04:57:00 Test Item Value Reference Range Comments SODIUM (test code=NA) 123 MMOL/L 137-145 K+ (test code=KSERUM) 3.7 MMOL/L 3.5-5.1 PLEASE NOTE NEW REFERENCE RANGE(S) IN EFFECT EFFECTIVE 10/15/2009 - NEW ANALYZER ([facility]) CHLORIDE (test code=CL) 88 MMOL/L 98-107 CO2 (test code=CO2) 23 MMOL/L 22-30 BUN (test code=BUN) 50 MG/DL 7-17 CREA (test code=CREA) 1.1 MG/DL 0.7-1.2 GLUCOSE (test 153 MG/DL 70-99 Fasting glucose normal code=GLUCOSE) <100 MG/DL- [employer] recommendation CALCIUM (test 8.8 MG/DL 8.4-10.2 code=CABLOOD) GFR (test code=GFR) 55 mL/min/1.73m2 A GFR of >90 mL/min/1.73m2 is considered normal. [id number] 04:33:00 Test Item Value Reference Range Comments WBC (test code=WBC) 19.1 K/UL 3.5-10.9 RBC (test code=RBC) 4.95 M/UL 4.0-5.0 HGB (test code=HGB) 15.1 G/DL 11.5-15.5 HCT (test code=HCT) 41.9 % 34-46 MCV (test code=MCV) 84.6 FL 80-98 MCH (test code=MCH) 30.5 PG 28-32 MCHC (test code=MCHC) 36.0 G/DL 32.5-36.5 RDW (test code=RDW) 12.5 % 11.5-14.5 PLT (test code=PLT) 225 K/UL 150-450 MPV (test code=MPV) 10.7 FL 7.4-10.4 MANDIFF (test code=MANDIFF) NO SCAN (test code=SCAN) NO NEUT% (test code=NEUT%) 72.6 % 40-75 LYMPH% (test code=LYMPH%) 18.2 % 24-44 MONO% (test code=MONO%) 8.4 % 0-13 EOS% (test code=EOS%) 0.2 % 0-4 BASO % (test code=BASO%) 0.1 % 0-2 IG% (test code=IG%) 0.5 % 0-1 IG%=Metamyelocytes, Myelocytes, and Promyelocytes. (Immature neutrophils not including "bands".) > 3% IG indicates risk of sepsis NRBC% (test code=NRBC%) 0 /100 WBC ABS NEUT (test code=NEUT) 13.9 K/UL 1.2-7.2 WHOLE BLOOD [id number] 20:36:00 Test Item Value Reference Range Comments WHOLE BLOOD GLUCOSE (test 163 mg/dL 70-99 Fasting glucose normal <100 code=POC GLU) MG/DL- [employer] recommendation [id number] 14:43:00 Test Item Value Reference Range Comments GLUCOSE (test code=URGLU) NEGATIVE MG/DL NEG-100 BILIRUBN (test code=URBILI) NEGATIVE NEGATIVE KETONE (test code=URKET) NEGATIVE MG/DL NEGATIVE BLOOD (test code=URBLD) NEGATIVE UR PH (test code=URPH) 5.0 5.0-7.5 PROTEIN (test code=URPRO) NEGATIVE MG/DL NEGATIVE NITRITES (test code=URNIT) NEGATIVE NEGATIVE UROBILINGEN (test code=URURO) 0.2 EU/DL 0.2-1.0 LEUKOCYT (test code=URLEU) NEGATIVE NEGATIVE UA COLOR (test code=UA COLOR) YELLOW YELLOW CLARITY (test code=CLARITY) CLEAR CLEAR SP GRAV (test code=URSPGRAV) 1.019 1.000-1.025 UAMICRO (test code=UAMICRO) NO BG LAB VENOUS [id number] 14:35:00 Test Item Value Reference Range Comments SITE (test code=SITE) VENOUS SITE BGLACVEN (test code=BGLACVEN) 26.0 mg/dL 6.0-18.0 CT ABDOMEN/PELVIS [id number] 14:34:[address] [id number] IMAGING REPORTPatient Name : WAYNE KRAMER MDate of Service: [id number]: 52 Sex: F Order #: [id number] Room: [facility]: 1965 X-Ray Number: [id number] Record Number: [id number] Hospital Number:[id number] Physician: JESUS MASON TANOrdering Physician: JESUS MASON CT abdomen and pelvis without contrast 05/13/2017 at 1406 hoursHistory: Decreased appetite due to depression, weightloss, reporteddiscoloration at the ileostomy site. Prior cholecystectomy and hysterectomyComparison:12/26/2010This CT exam was performed using one or more of the following dosereduction techniques: Automated exposure control, adjustment of the mAand/or kV according to patient size, or use of iterative reconstructiontechnique.Images are limited due to lack of contrast.Heart size is within normal limits. Scattered coronary arterycalcifications and/or stents are evident. Lung bases are clear. No acutebony abnormalities are seen. There is xzkl-[id number] aortoiliacatherosclerotic disease.The gallbladder has been removed. A punctate, nonobstructing left upperrenal pole calculus is present. Other intra-abdominal organs are withinnormal limits as far as can be detected without contrast.Right lower quadrant ostomy site is identified. Colectomy has apparentlybeen performed. Some fluid is noted in mid and distal small bowel loopswithout clear high-grade focal point of obstruction. Changes could be dueto mild ileus or gastroenteritis. Mid to distal small bowel loops also showmild circumferential wall prominence. An element of regional enteritis isnot excluded.No free air, free fluid or adenopathy.Urinary bladder is within normal limits. Ovaries may have been removed withthe uterus.IMPRESSION: Nonspecific bowel findings as discussed. Clinical correlation suggested.Follow- up may be helpful if there is further concern.Other findings as above.Electronically Signed By: Jimmie Felix M.D., 05/13/2017 2:32 PMLegally authenticated by LAST NGUYEN 2017-05-13 14:32:01THYROID STIMULATION [id number] 14:19:00 Test Item Value Reference Range Comments TSH (test code=TSH) 1.17 UIU/ML 0.465-4.68 [id number] 14:18:00 Test Item Value Reference Range Comments WBC (test code=WBC) 24.6 K/UL 3.5-10.9 RBC (test code=RBC) 5.79 M/UL 4.0-5.0 HGB (test code=HGB) 18.0 G/DL 11.5-15.5 HCT (test code=HCT) 48.2 % 34-46 MCV (test code=MCV) 83.2 FL 80-98 MCH (test code=MCH) 31.1 PG 28-32 MCHC (test code=MCHC) 37.3 G/DL 32.5-36.5 RDW (test code=RDW) 12.5 % 11.5-14.5 PLT (test code=PLT) 349 K/UL 150-450 MPV (test code=MPV) 10.9 FL 7.4-10.4 MANDIFF (test code=MANDIFF) NO SCAN (test code=SCAN) YES NEUT% (test code=NEUT%) 83.1 % 40-75 LYMPH% (test code=LYMPH%) 10.9 % 24-44 MONO% (test code=MONO%) 4.8 % 0-13 EOS% (test code=EOS%) 0.3 % 0-4 BASO % (test code=BASO%) 0.2 % 0-2 IG% (test code=IG%) 0.7 % 0-1 IG%=Metamyelocytes, Myelocytes, and Promyelocytes. (Immature neutrophils not including "bands".) > 3% IG indicates risk of sepsis NRBC% (test code=NRBC%) 0 /100 WBC PLT-EST (test code=PLT-EST) NORMAL NORMAL ABS NEUT (test code=NEUT) 20.5 K/UL 1.2-7.2 TROPONIN I - [id number] 13:37:00 Test Item Value Reference Range Comments TROP-I (test code=TROP-I) 0.026 ng/ml 0.012-0.033 INTERPRETIVE DATA A TROPONIN OF LESS THAN 0.034 NG/ML IS CONSIDERED NEGATIVE A TROPONIN OF 0.034 - 0.119 NG/ML IS CONSIDERED GRAYZONE A TROPONIN=/> 0.120 NG/ML IS CONSIDERED POSITIVE CHEST 1 VIEW [id number] 13:30:00[address] [id number] IMAGING REPORTPatient Name : WAYNE KRAMER MDate of Service: [id number]: 52 Sex: F Order #: [id number] [facility] 1965 [facility] Number: [id number] Record Number: [id number] Hospital Number:[id number] Physician: JESUS MASON TANOrdering Physician: JESUS MASON one view 05/13/2017 at 1300 hoursHistory: Central line placementComparison: 08/13/2008Right internal jugular vein catheter tips at the right atrium level. Nopneumothorax.Cardiac, hilar, and mediastinal structures are within normal limits. Lungsare well-aerated and clear. No other acute bony or soft tissueabnormalities areidentified.Impression: Central line in good position without pneumothorax. No other acute process.Electronically Signed By: Jimmie Felix M.D., 05/13/2017 1:28 PMLegally authenticated by LAST NGUYEN 2017-05-13 13:28:37LIVER [id number] 13:26:00 Test Item Value Reference Range Comments TOTPROT (test code=TOTPROT) 6.8 G/DL 6.3-8.2 ALBUMIN (test code=ALBSERUM) 3.8 G/DL 3.5-5.0 BILITOT (test code=BILITOT) 1.1 MG/DL 0.2-1.3 BILIDIR (test code=BILIDIR) 0.8 MG/DL 0.0-0.4 AST (test code=AST) 47 U/L 15-46 PHOSALK (test code=PHOSALK) 641 U/L 38-126 ALT (test code=ALT) 67 U/L 13-69 [id number] 13:26:00 Test Item Value Reference Range Comments MG (test code=MG) 1.7 mg/dL 1.6-2.3 [id number] 13:26:00 Test Item Value Reference Range Comments PHOSPHOR (test code=PHOSPHOR) 6.3 MG/DL 2.5-4.5 BMP, BASIC METABOLIC [id number] 13:24:00 Test Item Value Reference Range Comments SODIUM (test code=NA) 110 MMOL/L 137-145 K+ (test code=KSERUM) 5.2 MMOL/L 3.5-5.1 PLEASE NOTE NEW REFERENCE RANGE(S) IN EFFECT EFFECTIVE 10/15/2009 - NEW ANALYZER ([facility]) CHLORIDE (test code=CL) 71 MMOL/L 98-107 CO2 (test code=CO2) 19 MMOL/L 22-30 BUN (test code=BUN) 78 MG/DL 7-17 CREA (test code=CREA) 2.09 MG/DL 0.7-1.2 GLUCOSE (test 258 MG/DL 70-99 Fasting glucose normal code=GLUCOSE) <100 MG/DL- [place] [employer] recommendation CALCIUM (test 10.3 MG/DL 8.4-10.2 code=CABLOOD) GFR (test code=GFR) 26 mL/min/1.73m2 A GFR of >90 mL/min/1.73m2 is considered normal. RESULTS VERIFIED.C'd TO called dr mason/1315/Hollie GAS [id number] 11:35:00 Test Item Value Reference Range Comments SITE (test code=SITE) LTFEMORAL SITE ALLENS (test code=ALLENS) NONE O2 EQUIP (test code=O2 EQUIP) ROOM AIR O2-DEVICE FIO2 (test code=FIO2) 21 % PH (test code=BGPH) 7.47 7.35-7.45 PCO2 (test code=PCO2) 28 MMHG 34.0-45.0 PO2 (test code=PO2) 94 MMHG 84-92 HCO3 (test code=HCO3) 20.4 mmol/L 22.0-26.0 BE (test code=BE) -1.6 mmol/L -2.0-2.0 THB (test code=THB) 17.2 G/DL 12-16 % 02 HB (test code=ABGSAT) 94.4 % 96.0-100.0 %COHB (test code=BGCO) 3.0 % <1.5 % MET HB (test code=%MET HB) 1.2 % 0.4-1.5 CAO2 (test code=CAO2) 22.9 VOL% 15.7-21.6 PF/RATIO (test code=PF/RATIO) 448.0 BG LAB ARTERIAL [id number] 11:35:00 Test Item Value Reference Range Comments SITE (test code=SITE) LEFT FEMORAL SITE ALLENS (test code=ALLENS) NONE BGLAC (test code=BGLAC) 22.0 mg/dL 5.0-18.0 [id number] 15:14:[address] [id number] IMAGING REPORTPatient Name: WAYNE KRAMER MDate of Service: [id number]: 51 Sex: F Order #: [id number] Room:[facility]: X-Ray Number: [id number] Record Number: [id number] Hospital Number: [id number] Physician: Eli ALEMAN Physician: Yenni ALEMAN shoulder 3 views 2:30 PMHistory: Fell with shoulder pain.Findings:There is no acute fracture or dislocation.There are no lytic or blastic bone lesions.There are no definite osseous erosions detected.There is no radiopaque foreign body or definite calcific soft tissue mass.Impression: Unremarkable study.Electronically Signed By: Arsalan Bailey M.D., 08/28/2016 3: 11 PMLegally authenticated by FLOR ZAMUDIO 2016-08-28 15:11:59
[2019-04-30] MEDS ORDERED: HYDROCODONE/APAP 10/325 TAB ONE (20:57)
--- NOTE | 2019-04-30 22:22 | EDPHYS ---
Physician Documentation [facility] Name: Coral Clark Age: 54 yrs Sex: Female : 1965 Arrival Date: 04/30/2019 Time: 19:58 Bed 13 Private MD: MACRINA Physician Cuco Jimenez HPI: 04/30 20:42 This 54 yrs old Female presents to ER via Ambulatory with complaints of Rib jose g Pain. 20:42 The patient or guardian reports chest pain that is located primarily in the anterior jose g chest wall, left. Onset: 2 day(s) ago. The patient presents with abdominal pain in the left upper quadrant. The patient or guardian reports chest pain that is located primarily in the anterior chest wall. Onset: The symptoms/episode began/occurred 2 day(s) ago. The chest pain is described as sharp, left costal margin. Historical: - Allergies: 20:09 PENICILLINS; ca1 20:09 Toradol; ca1 - PMHx: 20:09 Cancer; ca1 - PSHx: 20:09 Ileostomy; Cholecystectomy; Hysterectomy; Appendectomy; ca1 - Immunization history:: Adult Immunizations up to date, Flu vaccine is not up to date. - Coronavirus screen:: The patient has NOT traveled to [place] in the past 14 days. The patient has NOT had contact with known/suspected case of Coronavirus?. - Social history:: Smoking status: Patient reports the use of cigarette tobacco products, smokes one-half pack cigarettes per day. - Family history:: not pertinent. - Ebola Screening: : Patient negative for fever greater than or equal to 101.5 degrees Fahrenheit, and additional compatible Ebola Virus Disease symptoms Patient denies exposure to infectious person Patient denies travel to an Ebola-affected area in the 21 days before illness onset No symptoms or risks identified at this time. ROS: 20:42 Constitutional: Negative for fever, chills, and weight loss, Eyes: Negative for injury, jose g pain, redness, and discharge, ENT: Negative for injury, pain, and discharge, Neck: Negative for injury, pain, and swelling, Cardiovascular: Negative for chest pain, palpitations, and edema, Abdomen/GI: Negative for abdominal pain, nausea, vomiting, diarrhea, and constipation, Back: Negative for injury and pain, : Negative for injury, bleeding, discharge, and swelling, MS/Extremity: Negative for injury and deformity, Skin: Negative for injury, rash, and discoloration, Neuro: Negative for headache, weakness, numbness, tingling, and seizure, Psych: Negative for depression, anxiety, suicide ideation, homicidal ideation, and hallucinations, Allergy/Immunology: Negative for hives, rash, and allergies, Endocrine: Negative for neck swelling, polydipsia, polyuria, polyphagia, and marked weight changes, Hematologic/Lymphatic: Negative for swollen nodes, abnormal bleeding, and unusual bruising. 20:42 Respiratory: Positive for chest pain on rom, deep breaths, pt with strong smell of etoh, fall was yesterday. Exam: 20:42 Constitutional: This is a well developed, well nourished patient who is awake, alert, jose g and in no acute distress. Head/Face: Normocephalic, atraumatic. Eyes: Pupils equal round and reactive to light, extra-ocular motions intact. Lids and lashes normal. Conjunctiva and sclera are non-icteric and not injected. Cornea within normal limits. Periorbital areas with no swelling, redness, or edema. ENT: Nares patent. No nasal discharge, no septal abnormalities noted. Tympanic membranes are normal and external auditory canals are clear. Oropharynx with no redness, swelling, or masses, exudates, or evidence of obstruction, uvula midline. Mucous membranes moist. Neck: Trachea midline, no thyromegaly or masses palpated, and no cervical lymphadenopathy. Supple, full range of motion without nuchal rigidity, or vertebral point tenderness. No Meningismus. Cardiovascular: Regular rate and rhythm with a normal S1 and S2. No gallops, murmurs, or rubs. Normal PMI, no JVD. No pulse deficits. Respiratory: Lungs have equal breath sounds bilaterally, clear to auscultation and percussion. No rales, rhonchi or wheezes noted. No increased work of breathing, no retractions or nasal flaring. Abdomen/GI: Soft, non-tender, with normal bowel sounds. No distension or tympany. No guarding or rebound. No evidence of tenderness throughout. Back: No spinal tenderness. No costovertebral tenderness. Full range of motion. Female : Normal external genitalia. Skin: Warm, dry with normal turgor. Normal color with no rashes, no lesions, and no evidence of cellulitis. MS/ Extremity: Pulses equal, no cyanosis. Neurovascular intact. Full, normal range of motion. Neuro: Awake and alert, GCS 15, oriented to person, place, time, and situation. Cranial nerves II-XII grossly intact. Motor strength 5/5 in all extremities. Sensory grossly intact. Cerebellar exam normal. Normal gait. Psych: Awake, alert, with orientation to person, place and time. Behavior, mood, and affect are within normal limits. 20:42 Chest/axilla: Inspection: normal, Palpation: tenderness, that is moderate, of the left lateral posterior chest, left lateral anterior chest and left breast, Axilla: are normal, Breasts: are normal, Lymph nodes: lymphadenopathy is not appreciated. Vital Signs: 20:09 BP 147 / 60; Pulse 79; Resp 16 S; Temp 97.1(TE); Pulse Ox 96% on R/A; Weight 71.21 kg ca1 (R); Height 5 ft. 7 in. (170.18 cm) (R); Pain 10/10; 22:20 BP 136 / 70; Pulse 77; Resp 16; Temp 97.6; Pulse Ox 97% on R/A; Pain 6/10; sg 20:09 Body Mass Index 24.59 (71.21 kg, 170.18 cm) ca1 MDM: 20:12 Patient medically screened. [facility] 20:42 Data reviewed: vital signs, nurses notes, lab test result(s), radiologic studies, CT jose g scan. 04/30 22:29 Order name: Urine Dipstick--Ancillary (enter results) cm6 04/30 20:41 Order name: CT Traumagram (Head C Spine CAP wo con) [facility] 04/30 20:41 Order name: Urine Dipstick-Ancillary (obtain specimen); Complete Time: 22:29 [facility] 04/30 20:42 Order name: INCENTIVE SPIROMETRY [facility] Administered Medications: 21:01 Drug: [place] 10 mg-325 mg 1 tabs Route: PO; 22:29 Follow up: Response: No adverse reaction; Pain is unchanged, physician notified Disposition: 04/30/19 22:21 Discharged to Home. Impression: Fall due to bumping against object, Strain of muscle and tendon of back wall of thorax, Strain of muscle and tendon of front wall of thorax, Alcohol abuse. - Condition is Stable. - Discharge Instructions: Alcohol Intoxication, Fall Prevention in the Home, Alcohol Intoxication, Qbvs-xr-Jmas, Alcohol Abuse and Nutrition, Fall Prevention in the Home, Qjjg-cs-Lsqa. - Prescriptions for Tylenol- Codeine #3 300-30 mg Oral Tablet - take 2 tablet by ORAL route every 6 hours As needed; 30 tablet. Cyclobenzaprine 5 mg Oral Tablet - take 1 tablet by ORAL route 3 times per day As needed; 15 tablet. - Medication Reconciliation Form, Thank You Letter, Antibiotic Education, Prescription Opioid Use form. - Work release form (04/30/19 22:38). ph - Follow up: Private Physician; When: 2 - 3 days; Reason: Recheck today's complaints, Continuance of care, Re-evaluation by your physician. - Problem is new. - Symptoms have improved. Signatures: Dispatcher [employer] EDMS Agus Gaytan RN RN sg Malika Streeter RN RN aa1 Cuco Jimenez MD MD cha Acob, Cheryl, RN RN [facility] Loreto Ta RN ph Corrections: (The following items were deleted from the chart) 22:35 22:21 04/30/2019 22:21 Discharged to Home. Impression: Fall due to bumping against aa1 object; Strain of muscle and tendon of back wall of thorax; Strain of muscle and tendon of front wall of thorax; Alcohol abuse. Condition is Stable. Discharge Instructions: Alcohol Intoxication, Fall Prevention in the Home, Alcohol Intoxication, Icdh-xd-Rulv, Alcohol Abuse and Nutrition, Fall Prevention in the Home, Dtrm-rc-Hich. Prescriptions for Tylenol-Codeine #3 300-30 mg Oral Tablet - take 2 tablet by ORAL route every 6 hours As needed; 30 tablet, Cyclobenzaprine 5 mg Oral Tablet - take 1 tablet by ORAL route 3 times per day As needed; 15 tablet. and Forms are Medication Reconciliation Form, Thank You Letter, Antibiotic Education, Prescription Opioid Use. Follow up: Private Physician; When: 2 - 3 days; Reason: Recheck today's complaints, Continuance of care, Re-evaluation by your physician. Problem is new. Symptoms have improved. jose g
--- NOTE | 2019-04-30 22:22 | ER ---
Nurse's Notes [facility] Name: Coral Clark Age: 54 yrs Sex: Female : 1965 Arrival Date: 04/30/2019 Time: 19:58 Bed 13 Private MD: Diagnosis: Fall due to bumping against object;Strain of muscle and tendon of back wall of thorax;Strain of muscle and tendon of front wall of thorax;Alcohol abuse Presentation: 04/30 20:06 Presenting complaint: Patient states: I fell last night and I think I cracked a rib on ca1 the Left side. Transition of care: patient was not received from another setting of care. Onset of symptoms was April 30, 2019. Risk Assessment: Do you want to hurt yourself or someone else? Patient reports no desire to harm self or others. Initial Sepsis Screen: Does the patient meet any 2 criteria? No. Patient's initial sepsis screen is negative. Does the patient have a suspected source of infection? No. Patient's initial sepsis screen is negative. Care prior to arrival: None. 20:06 Method Of Arrival: Ambulatory ca1 20:06 Acuity: ULISSES 3 ca1 Historical: - Allergies: 20:09 PENICILLINS; ca1 20:09 Toradol; ca1 - PMHx: 20:09 Cancer; ca1 - PSHx: 20:09 Ileostomy; Cholecystectomy; Hysterectomy; Appendectomy; ca1 - Immunization history:: Adult Immunizations up to date, Flu vaccine is not up to date. - Coronavirus screen:: The patient has NOT traveled to [place] in the past 14 days. The patient has NOT had contact with known/suspected case of Coronavirus?. - Social history:: Smoking status: Patient reports the use of cigarette tobacco products, smokes one-half pack cigarettes per day. - Family history:: not pertinent. - Ebola Screening: : Patient negative for fever greater than or equal to 101.5 degrees Fahrenheit, and additional compatible Ebola Virus Disease symptoms Patient denies exposure to infectious person Patient denies travel to an Ebola-affected area in the 21 days before illness onset No symptoms or risks identified at this time. Screenin:40 Abuse screen: Denies threats or abuse. Denies injuries from another. Nutritional sg screening: No deficits noted. Tuberculosis screening: No symptoms or risk factors identified. Never had TB. Fall Risk None identified. Assessment: 20:40 General: Appears in no apparent distress. uncomfortable, well groomed, well developed, sg well nourished, Behavior is calm, cooperative, appropriate for age. Pain: Complains of pain in left lateral anterior chest and left lateral posterior chest Quality of pain is described as aching. Pain: Aggravated by deep breathing. Neuro: Level of Consciousness is awake, alert, obeys commands, Oriented to person, place, time, Condenser Tester are equal bilaterally Speech is normal, Facial symmetry appears normal. Cardiovascular: Patient's skin is warm and dry. Chest pain is denied. Respiratory: Airway is patent Respiratory effort is even, unlabored, Respiratory pattern is regular, symmetrical. GI: No signs and/or symptoms were reported involving the gastrointestinal system. : No signs and/or symptoms were reported regarding the genitourinary system. EENT: No signs and/or symptoms were reported regarding the EENT system. Derm: Skin is pink, warm \T\ dry. Musculoskeletal: Circulation, motion, and sensation intact. Range of motion: intact in all extremities, Reports pain in left lateral anterior chest and left lateral posterior chest. Vital Signs: 20:09 BP 147 / 60; Pulse 79; Resp 16 S; Temp 97.1(TE); Pulse Ox 96% on R/A; Weight 71.21 kg ca1 (R); Height 5 ft. 7 in. (170.18 cm) (R); Pain 10/10; 22:20 BP 136 / 70; Pulse 77; Resp 16; Temp 97.6; Pulse Ox 97% on R/A; Pain 6/10; sg 20:09 Body Mass Index 24.59 (71.21 kg, 170.18 cm) ca1 ED Course: 19:58 Patient arrived in ED. ag3 20:07 Triage completed. ca1 20:09 Arm band placed on right wrist. ca1 20:12 Cuco Jimenez MD is Attending Physician. jose g 20:40 Patient has correct armband on for positive identification. Bed in low position. Call sg light in reach. 20:41 Agus Gaytan, RN is Primary Nurse. sg 21:00 INCENTIVE SPIROMETRY Sent. sg 21:20 CT Traumagram (Head C Spine CAP wo con) In Process Unspecified. EDMS 22:20 pt educated on Incentive Spirometry, demonstrated understanding. sg 22:20 No provider procedures requiring assistance completed. Patient did not have IV access sg during this emergency room visit. Administered Medications: 21:01 Drug: [place] 10 mg-325 mg 1 tabs Route: PO; sg 22:29 Follow up: Response: No adverse reaction; Pain is unchanged, physician notified sg Outcome: 22:21 Discharge ordered by . jose g 22:30 Discharged to home ambulatory, with family. sg 22:30 Condition: good 22:30 Discharge instructions given to patient, family, Instructed on discharge instructions, follow up and referral plans. no drinking with medication, no driving heavy equipment, medication usage, safety practices, incentive spirometry Demonstrated understanding of instructions, follow-up care, medications, Prescriptions given X 2. 22:35 Patient left the ED. aa1 Signatures: Dispatcher [employer] EDMS Agus Gaytan RN RN sg Malika Streeter RN RN aa1 Cuco Jimenez MD MD cha Gomez, Alice ag3 Gema Khan RN RN ca1
[2019-04-30 22:36] LABS: Urine Blood NEGATIVE (NEG); Urine Glucose NEGATIVE (NEG); Urine Protein NEGATIVE (NEG); Urine Specific Gravity 1.025 (1.005-1.030)
[2019-04-30 22:59] VITALS: O2SAT 100
[2019-04-30 23:01] VITALS: BP 144/80; TEMP 98.2
--- NOTE | 2019-05-01 11:39 | RAD REPORT ---
EXAM DESCRIPTION: CTHead C Spine chest/abdomen/pelvis Wo Con CLINICAL HISTORY: 54 years Female PAIN TECHNIQUE: Contiguous axial CT images obtained through the brain and cervical spine without IV contr ast. Coronal and sagittal reformatted images also provided. Contiguous axial images obtained through the chest, abdomen, and pelvis without IV contrast. Coronal and sagittal reformatted images provided. This CT exam was performed according to our departmental dose-optimization program, which includes on e or more of the following dose reduction techniques: automated exposure control, adjustment of the m A and/or kV according to patient size, and/or use of iterative reconstruction technique. COMPARISON: No prior exams provided for comparison. FINDINGS: There is no acute skull fracture, intracranial hemorrhage, extraaxial collection, or acute transcortical infarction. The ventricles are normal in size and contour without mass effect or midli ne shift. The visualized paranasal sinuses, tympanomastoid cavities, and orbits are normal. There is no acute cervical fracture. There is straightening of the normal cervical lordosis with slig ht anterolisthesis of C4 on C5. There is mild scattered multilevel degenerative disc disease and unco vertebral arthrosis most pronounced at C5-C6. There is scattered multilevel facet arthrosis most pron ounced on the left at C4-C5. No aggressive osseous lesion. No prevertebral or paraspinal soft tissue swelling in the neck. At C3-C4, there is slight bilateral neural foraminal narrowing. At C4-C5, there is severe left neural foraminal stenosis. At C5-C6, there is mild central canal stenosis with severe right and mild left neural foraminal steno sis. At C6-C7, there is flattening of the ventral aspect of the thecal sac with mild right and moderate le ft neural foraminal stenosis. There are is no acute fracture in the chest or thoracic spine. 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 The heart is normal in size and there is no thoracic aortic aneurysm. The lungs are clear without focal consoli dation. No enlarged mediastinal lymph nodes. The central airways are patent. There are no acute lumbar or pelvic fractures. Mild bilateral hip osteoarthritis. The unenhanced liver is mildly enlarged and demonstrates a lobulated contour, suggestive of early cir rhosis. Anteriorly in the liver best seen on series 501 image 62, is a focus of low attenuation measu ring up to 2.1 cm. No other visualized focal hepatic lesion. The spleen is borderline enlarged and contains a 1.3 cm focus of low attenuation inferiorly. Prior cholecystectomy without biliary dilatation. Pancreatic atrophy without inflammation or focal lesion. Normal adrenal glands and right kidney. Single punctate nonobstructing intrarenal calculus on the lef t. Normal urinary bladder. Prior hysterectomy. Prior colectomy with a right lower quadrant ileostomy. No bowel inflammation, obstruction, pneumatosi s, or free intraperitoneal air. Atherosclerosis without abdominal aortic aneurysm or retroperitoneal hemorrhage. IMPRESSION: Normal CT scan of the brain. Mild chronic degenerative changes in the cervical spine without acute injury. No acute findings in the chest. Suspected early cirrhosis with hepatosplenomegaly. Single low-attenuation lesions within both the spl een and liver are nonspecific, consider further evaluation with multiphase contrast-enhanced CT or MR I. Single punctate nonobstructing intrarenal calculus on the left. Prior colectomy without bowel inflammation or obstruction. Electronically signed by: Maggie Sanders MD 04/30/2019 9:58 PM SYSTEMS INTEGRATOR Due to temporary technical issues with the PACS/Fluency reporting system, reports are being signed by the in house radiologist as a courtesy to ensure prompt reporting. The interpreting radiologist is f ully responsible for the content of the report.
== END 2019-04-30 22:35 | disposition home or self-care (01) ==
LOC: ER 19:55
DX: S29.012A Strain of muscle and tendon of back wall of thorax, initial encounter (principal); S29.011A Strain of muscle and tendon of front wall of thorax, initial encounter; F10.10 Alcohol abuse, uncomplicated; W18.00XA Striking against unspecified object with subsequent fall, initial encounter; Y93.9 Activity, unspecified; Y92.9 Unspecified place or not applicable; Z88.0 Allergy status to penicillin; Z88.5 Allergy status to narcotic agent; F17.210 Nicotine dependence, cigarettes, uncomplicated
CPT/HCPCS: 70450; 71250; 72125; 81003; 99283

== ENCOUNTER 2019-12-21 02:58 | Emergency (ER) | payer SELFPAY ==
--- OUTSIDE RECORDS SUMMARY | 2019-12-21 03:03 | XMS REPORT | Continuity of Care Document ---
:[address] [facility] t Address [address] [place] [address] Care Team Providers Name Role Phone Unavailable Unavailable Unavailable Problems This patient has no known problems. Allergies, Adverse Reactions, Alerts This patient has no known allergies or adverse reactions. Medications This patient has no known medications. Procedures This patient has no known procedures. Results Test Description Test Time Test Comments Results Result Comments Source NEG STREP SCRN CONFIRM CULT 2017-07-12 13:28:00 Test Item Value Reference Range Interpretation Comme nts Report Text (test code = Report Text) [facility] 2017-07-11 1322 Report Text7 (test code = Report NORMAL RESPIRATORY TOÑO ISOLATED Text7) Report Text8 (test code = Report PRELIMINARY REPORT Text8) Report Text9 (test code = Report Text9) Report Text10 (test code = Report [facility] 2017-07-12 1328 Text10) Report Text11 (test code = Report STREP SCREEN NEGATIVE, CULTURE NE GATIVE Text11) FOR Report Text12 (test code = Report GROUP A STREP - FINAL REPORT. Text12) VQ SCAN (VENT/LUNG PERFUSION)2017-07-11 20:00:[address] [id number] IMAGING REPORTPatient Name: WAYNE KRAMER MDate of Service: [id number]: 52 Sex: F Order #: [id number] Room:ERSDOB: 1965 X-Ray Number: [id number] Record Number: [id number] Hospital Number: [id number] Physician: ANDREINA RANGELYEKying Physician: Renae RAPHAEL ventilation/perfusion study: 8:00 PMHistory: Shortness of breathCorrelation with chest radiographs series dated: 07/11/2017Dosage:10.1 mCi xenon-133 for ventilation.5.0 mCi technetium 99m MAA for perfusion.Findings:There are no ventilation/perfusion mismatches in a distribution to suggestpulmonary embolism.Impression:Low probability for pulmonary embolism.Electronically Signed By: Arsalan Bailey M.D., 07/11/20177:58 PMLegally authenticated by FLOR ZAMUDIO 2017-07-11 19:58:20D- DIMER, [id number] 17:59:00 Test Item Value Reference Range Interpretation Comments D-DIMER (test 0.88 ug/mL (FEU) 0.27-0.50 H VALUES OF QUANTITATIVE code = DDIMER) D-DIMER LESS THAN 0.4 UG/ML HAVE BEEN REPORTED TO BE ASSOCIATED WITH A LOW PROBABILITY OF DEEP VEIN THROMBOSIS/PULM ONARYEMB OLISM. THIS ALBERT T ALONE SHOULD NOT BE U SED TO RULE OUT DVT/PE . [id number] 17:58:00 Test Item Value Reference Range Interpretation Comments SODIUM (test code = 134 MMOL/L 137-145 L NA) K+ (test code = 5.0 MMOL/L 3.5-5.1 PLEASE NOTE NEW KSERUM) REFERENCE RANGE (S) IN EFFECT EFFECTIVE 010 - NEW ANALYZER (V ITROS 5600) CHLORIDE (test code 95 MMOL/L 98-107 L = CL) CO2 (test code = 24 MMOL/L 22-30 CO2) BUN (test code = 28 MG/DL 7-17 H BUN) CREA (test code = 1.2 MG/DL 0.7-1.2 CREA) GLUCOSE (test code 286 MG/DL 70-99 H Fasting glucose = GLUCOSE) normal <100 MG/ DL- [employer] recommendation* * CALCIUM (test code 10.2 MG/DL 8.4-10.2 = CABLOOD) TOTPROT (test code 7.6 G/DL 6.3-8.2 = TOTPROT) ALBUMIN (test code 4.3 G/DL 3.5-5.0 = ALBSERUM) BILITOT (test code 0.9 MG/DL 0.2-1.3 = BILITOT) AST (test code = 40 U/L 15-46 AST) PHOSALK (test code 437 U/L 38-126 H = PHOSALK) ALT (test code = 40 U/L 13-69 ALT) GFR (test code = 50 A GFR of >9 0 GFR) mL/min/1.73m2 mL/min/1.73m2 is considered norm al. [id number] 17:46:00 Test Item Value Reference Range Interpretation Comments GLUCOSE (test code = URGLU) NEGATIVE MG/DL NEG-100 BILIRUBN (test code = URBILI) NEGATIVE NEGATIVE KETONE (test code = URKET) NEGATIVE MG/DL NEGATIVE BLOOD (test code = URBLD) NEGATIVE UR PH (test code = URPH) 5.5 5.0-7.5 PROTEIN (test code = URPRO) TRACE MG/DL NEGATIVE NITRITES (test code = URNIT) NEGATIVE NEGATIVE UROBILINGEN (test code = 0.2 EU/DL 0.2-1.0 URURO) LEUKOCYT (test code = URLEU) NEGATIVE NEGATIVE UA COLOR (test code = UA YELLOW YELLOW COLOR) CLARITY (test code = CLARITY) CLEAR CLEAR SP GRAV (test code = URSPGRAV) >=1.030 1.000-1.025 H UAMICRO (test code = UAMICRO) NO [id number] 17:46:00 Test Item Value Reference Range Interpretation Comments WBC (test code = 9.4 K/UL 3.5-10.9 WBC) RBC (test code = 4.07 M/UL 4.0-5.0 RBC) HGB (test code = 13.0 G/DL 11.5-15.5 HGB) HCT (test code = 38.7 % 34-46 HCT) MCV (test code = 95.1 FL 80-98 MCV) MCH (test code = 31.9 PG 28-32 MCH) MCHC (test code = 33.6 G/DL 32.5-36.5 MCHC) RDW (test code = 16.0 % 11.5-14.5 H RDW) PLT (test code = 233 K/UL 150-450 PLT) MPV (test code = 10.1 FL 7.4-10.4 MPV) MANDIFF (test code = NO MANDIFF) SCAN (test code = NO SCAN) NEUT% (test code = 80.4 % 40-75 H NEUT%) LYMPH% (test code = 14.0 % 24-44 L LYMPH%) MONO% (test code = 5.1 % 0-13 MONO%) EOS% (test code = 0.0 % 0-4 EOS%) BASO % (test code = 0.2 % 0-2 BASO%) IG% (test code = 0.3 % 0-1 IG% = Metam yelocytes, IG%) Myelocytes, and Promyelocytes. (Immature neutr ophils not including " bands".) > 3% IG indic ates risk of sepsis NRBC% (test code = 0 /100 WBC NRBC%) ABS NEUT (test code 7.6 K/UL 1.2-7.2 H = NEUT) CHEST XR 2 [id number] 17:44:[place] [id number] IMAGING REPORTPatient Name: WAYNE KRAMER MDate of Service: [id number]: 52 Sex: F Order #: [id number] Room:[facility]: 1965 X-Ray Number: [id number] Record Number: [id number] Hospital Number: [id number] Physician: ANDREINA RANGELYEOrdering Physician: Lennie RAPHAEL 2 views 5:30 PMHISTORY: Fever, cough, shortness of breath, bronchitis.Comparisons: 07/10/2017FINDINGS:Heart size is normal.There is no focal lung consolidation.There is no definite pleural effusion or pneumothorax identified.There is emphysema present.There are old healed rib fracture deformities bilaterally.There is osteoporosis.IMPRESSION:No acute cardiopulmonary process.Electronically Signed By: Arsalan Bailey M.D., 5:42 PMLegally authenticated by FLOR ZAMUDIO 2017-07-11 17:42:39CHEST XR 2 [id number] 07:19:[address] [id number] IMAGING REPORTPatient Name: WAYNE KRAMER MDate of Service: [id number]: 52 Sex: F Order #: [id number] Room:[facility]: 1965 X-Ray Number: [id number] Record Number: [id number] Hospital Number: [id number] Physician: Eli ALEMAN Physician: Lennie RAPHAEL 2 views 12:15 AMComparisons: 06/02/2017HISTORY: Cough.FINDINGS:Heart size is normal.There is no focal lung consolidation.There is no definite pleural effusion or pneumothorax identified.Hyperinflation suggests COPD.IMPRESSION:No acute cardiopulmonary process.EMERGENT INTERPRETATION PROVIDED BY [facility].Electronically Signed By: Arsalan Bailey M.D., 07/10/2017 7:17 AMLegally authenticated by FLOR ZAMUDIO 2017-07-10 07:17:03GROUP A STREP [id number] 00:19:00 Test Item Value Reference Range Interpretation Comments GROUP A STREP SCREEN NEGATIVE NEGATIVE Cultu re set up to (test code = STREPGRA) confi rm negative Strep Screen STREP A INTERNAL POS PASS PASS CNTRL (test code = STRPAIPC) STREP A LOT # (test [id number] code = STRPALOT) STREP A EXPIRATION DATE 11-04-2019 (test code = STRPAEXP) Culture set up to confirm negative Strep ScreenWHOLE BLOOD [id number] 16:49:00 Test Item Value Reference Range Interpretation Comments WHOLE BLOOD GLUCOSE 125 mg/dL 70-99 H Fastin g glucose (test code = POC GLU) normal <100 MG/DL- [employer] recommend ation WHOLE BLOOD [id number] 11:46:00 Test Item Value Reference Range Interpretation Comments WHOLE BLOOD GLUCOSE 159 mg/dL 70-99 H Fastin g glucose (test code = POC GLU) normal <100 MG/DL- [employer] recommend ation WHOLE BLOOD [id number] 07:11:00 Test Item Value Reference Range Interpretation Comments WHOLE BLOOD GLUCOSE 87 mg/dL 70-99 Fastin g glucose (test code = POC GLU) normal <100 MG/DL- [employer] recommendation* * WHOLE BLOOD [id number] 21:30:00 Test Item Value Reference Range Interpretation Comments WHOLE BLOOD GLUCOSE 199 mg/dL 70-99 H Fastin g glucose (test code = POC GLU) normal <100 MG/DL- [employer] recommend ation WHOLE BLOOD [id number] 21:27:00 Test Item Value Reference Range Interpretation Comments WHOLE BLOOD GLUCOSE 195 mg/dL 70-99 H Fastin g glucose (test code = POC GLU) normal <100 MG/DL- [employer] recommend ation WHOLE BLOOD [id number] 21:22:00 Test Item Value Reference Range Interpretation Comments WHOLE BLOOD GLUCOSE 124 mg/dL 70-99 H Fastin g glucose (test code = POC GLU) normal <100 MG/DL- [employer] recommend ation WHOLE BLOOD [id number] 12:08:00 Test Item Value Reference Range Interpretation Comments WHOLE BLOOD GLUCOSE 79 mg/dL 70-99 Fastin g glucose (test code = POC GLU) normal <100 MG/DL- [employer] recommendation* * WHOLE BLOOD [id number] 22:20:00 Test Item Value Reference Range Interpretation Comments WHOLE BLOOD GLUCOSE 222 mg/dL 70-99 H Fastin g glucose (test code = POC GLU) normal <100 MG/DL- [employer] recommend ation WHOLE BLOOD [id number] 11:25:00 Test Item Value Reference Range Interpretation Comments WHOLE BLOOD GLUCOSE 193 mg/dL 70-99 H Fastin g glucose (test code = POC GLU) normal <100 MG/DL- [employer] recommend ation WHOLE BLOOD [id number] 11:24:00 Test Item Value Reference Range Interpretation Comments WHOLE BLOOD GLUCOSE 89 mg/dL 70-99 Fastin g glucose (test code = POC GLU) normal <100 MG/DL- [employer] recommendation* * WHOLE BLOOD [id number] 19:31:00 Test Item Value Reference Range Interpretation Comments WHOLE BLOOD GLUCOSE 211 mg/dL 70-99 H Fastin g glucose (test code = POC GLU) normal <100 MG/DL- [employer] recommend ation WHOLE BLOOD [id number] 11:46:00 Test Item Value Reference Range Interpretation Comments WHOLE BLOOD GLUCOSE 167 mg/dL 70-99 H Fastin g glucose (test code = POC GLU) normal <100 MG/DL- [employer] recommend ation BMP, BASIC METABOLIC [id number] 08:24:00 Test Item Value Reference Range Interpretation Comments SODIUM (test code = 135 MMOL/L 137-145 L NA) K+ (test code = 4.6 MMOL/L 3.5-5.1 PLEASE NOTE NEW KSERUM) REFERENCE RANGE (S) IN EFFECT EFFECTIVE 010 - NEW ANALYZER (V ITROS 5600) CHLORIDE (test code 109 MMOL/L 98-107 H = CL) CO2 (test code = 19 MMOL/L 22-30 L CO2) BUN (test code = 20 MG/DL 7-17 H BUN) CREA (test code = 1.0 MG/DL 0.7-1.2 CREA) GLUCOSE (test code 91 MG/DL 70-99 Fasting glucose = GLUCOSE) normal <100 MG/ DL- [employer] recommendation* * CALCIUM (test code 7.7 MG/DL 8.4-10.2 L = CABLOOD) GFR (test code = 61 A GFR of >9 0 GFR) mL/min/1.73m2 mL/min/1.73m2 is considered norm al. WHOLE BLOOD [id number] 08:12:00 Test Item Value Reference Range Interpretation Comments WHOLE BLOOD GLUCOSE 113 mg/dL 70-99 H Fastin g glucose (test code = POC GLU) normal <100 MG/DL- [employer] recommend ation [id number] 07:49:00 Test Item Value Reference Range Interpretation Comments WBC (test code = 7.7 K/UL 3.5-10.9 WBC) RBC (test code = 3.25 M/UL 4.0-5.0 L RBC) HGB (test code = 9.8 G/DL 11.5-15.5 L HGB) HCT (test code = 29.4 % 34-46 L HCT) MCV (test code = 90.5 FL 80-98 MCV) MCH (test code = 30.2 PG 28-32 MCH) MCHC (test code = 33.3 G/DL 32.5-36.5 MCHC) RDW (test code = 14.5 % 11.5-14.5 RDW) PLT (test code = 117 K/UL 150-450 L PLT) MPV (test code = 10.2 FL 7.4-10.4 MPV) MANDIFF (test code = NO MANDIFF) SCAN (test code = NO SCAN) NEUT% (test code = 61.9 % 40-75 NEUT%) LYMPH% (test code = 27.7 % 24-44 LYMPH%) MONO% (test code = 8.2 % 0-13 MONO%) EOS% (test code = 1.2 % 0-4 EOS%) BASO % (test code = 0.5 % 0-2 BASO%) IG% (test code = 0.5 % 0-1 IG% = Metam yelocytes, IG%) Myelocytes, and Promyelocytes. (Immature neutr ophils not including " bands".) > 3% IG indic ates risk of sepsis NRBC% (test code = 0 /100 WBC NRBC%) ABS NEUT (test code 4.7 K/UL 1.2-7.2 = NEUT) WHOLE BLOOD [id number] 22:31:00 Test Item Value Reference Range Interpretation Comments WHOLE BLOOD GLUCOSE 242 mg/dL 70-99 H Fastin g glucose (test code = POC GLU) normal <100 MG/DL- [employer] recommend ation WHOLE BLOOD [id number] 20:08:00 Test Item Value Reference Range Interpretation Comments WHOLE BLOOD GLUCOSE 112 mg/dL 70-99 H Fastin g glucose (test code = POC GLU) normal <100 MG/DL- [employer] recommend ation WHOLE BLOOD [id number] 18:53:00 Test Item Value Reference Range Interpretation Comments WHOLE BLOOD GLUCOSE 324 mg/dL 70-99 H Fastin g glucose (test code = POC GLU) normal <100 MG/DL- [employer] recommend ation WHOLE BLOOD [id number] 18:15:00 Test Item Value Reference Range Interpretation Comments WHOLE BLOOD GLUCOSE 136 mg/dL 70-99 H Fastin g glucose (test code = POC GLU) normal <100 MG/DL- [employer] recommend ation CT THORAX W/O [id number] 16:53:[address] [id number] IMAGING REPORTPatient Name: WAYNE KRAMER MDate of Service: [id number]: 52 Sex: F Order #: [id number] Room: [address] [place], [place] [address]OB: 1965 X-Ray Number: [id number] Record Number: [id number] Hospital Number: [id number] Physician: MS MATTHEWONTHIOrdering Physician: SHAAN FERRARO-SURGERYCT of the chest without contrast 4:00 PMHISTORY: RIGHT axilla pain.This CT exam was performed using one or more of the following dosereduction techniques: Automated exposure control, adjustment of the MAand/or KV according to patient size or use of iterative reconstructiontechnique.FINDINGS:Evaluation is suboptimal without IV contrast.There are multiple RIGHT axillary lymph nodes. There is what appears to kelsey complex fluid collection with a dot of intraluminal gas largest measuresapproximately 5.0 x 3.3 cm. This likely represents an abscess. There isalso soft tissue emphysema and fat stranding within the RIGHT axillaryregion and RIGHT upper arm likely representing infectious or postsurgicalchange.The osman ngs are clear. There is no pneumothorax. There is no pleuraleffusion.There is an old incompletely healed fracture deformity of the LEFT scapula.There has been cholecystectomy.IMPRESSION:RIGHT axillary abscess and adenopathy with fat stranding and soft tissueemphysema within the axilla and proximal RIGHT upper arm.Electronically Signed By: Arsalan Bailey M.D., 06/09/2017 4:51 PMLegally authenticated by FLOR ZAMUDIO 2017-06-09 16:51:10CULTURE, [id number] 12:39:00 Test Item Value Reference Range Interpretation Comments Report Text (test CWJ 2017-06-06 903 code = Report Text) Report Text7 (test NO GROWTH WITHIN 24 HOURS code = Report Text7) Report Text8 (test PRELIMINARY REPORT code = Report Text8) Report Text9 (test code = Report Text9) Report Text10 (test CWJ 2017-06-07 1217 code = Report Text10) Report Text11 (test NO GROWTH WITHIN 48 HOURS code = Report Text11) Report Text12 (test PRELIMINARY REPORT code = Report Text12) Report Text13 (test code = Report Text13) Report Text14 (test [facility] 2017-06-09 1239 code = Report Text14) Report Text15 (test NO ANAEROBIC GROWTH code = Report OBSERVED Text15) Report Text16 (test FINAL REPORT code = Report Text16) WHOLE BLOOD [id number] 11:03:00 Test Item Value Reference Range Interpretation Comments WHOLE BLOOD GLUCOSE 229 mg/dL 70-99 H Fastin g glucose (test code = POC GLU) normal <100 MG/DL- [employer] recommend ation VANCOMYCIN [id number] 09:48:00 Test Item Value Reference Range Interpretation Comments VANCTROU (test code = 15 UG/ML 10-20 In [place] rare cases VANCTROU) heterophile ant ibodies may interfere w ith reagent causing erroneously low results. Any Vancomycin level result that is inconsistent wi th the clinical presen tation should be confi rmed with an alternate te st method. WHOLE BLOOD [id number] 08:14:00 Test Item Value Reference Range Interpretation Comments WHOLE BLOOD GLUCOSE 108 mg/dL 70-99 H Fastin g glucose (test code = POC GLU) normal <100 MG/DL- [employer] recommend ation WHOLE BLOOD [id number] 08:08:00 Test Item Value Reference Range Interpretation Comments WHOLE BLOOD GLUCOSE 169 mg/dL 70-99 H Fastin g glucose (test code = POC GLU) normal <100 MG/DL- [employer] recommend ation WHOLE BLOOD [id number] 18:36:00 Test Item Value Reference Range Interpretation Comments WHOLE BLOOD GLUCOSE 220 mg/dL 70-99 H Fastin g glucose (test code = POC GLU) normal <100 MG/DL- [employer] recommend ation WHOLE BLOOD [id number] 11:48:00 Test Item Value Reference Range Interpretation Comments WHOLE BLOOD GLUCOSE 184 mg/dL 70-99 H Fastin g glucose (test code = POC GLU) normal <100 MG/DL- [employer] recommend ation WHOLE BLOOD [id number] 11:46:00 Test Item Value Reference Range Interpretation Comments WHOLE BLOOD GLUCOSE 107 mg/dL 70-99 H Fastin g glucose (test code = POC GLU) normal <100 MG/DL- [employer] recommend ation WHOLE BLOOD [id number] 11:42:00 Test Item Value Reference Range Interpretation Comments WHOLE BLOOD GLUCOSE 249 mg/dL 70-99 H Fastin g glucose (test code = POC GLU) normal <100 MG/DL- [employer] recommend ation WHOLE BLOOD [id number] 11:41:00 Test Item Value Reference Range Interpretation Comments WHOLE BLOOD GLUCOSE 152 mg/dL 70-99 H Fastin g glucose (test code = POC GLU) normal <100 MG/DL- [employer] recommend ation BMP, BASIC METABOLIC [id number] 08:44:00 Test Item Value Reference Range Interpretation Comments SODIUM (test code = 132 MMOL/L 137-145 L NA) K+ (test code = 4.1 MMOL/L 3.5-5.1 PLEASE NOTE NEW KSERUM) REFERENCE RANGE (S) IN EFFECT EFFECTIVE 010 - NEW ANALYZER (V ITROS 5600) CHLORIDE (test code 100 MMOL/L 98-107 = CL) CO2 (test code = 24 MMOL/L 22-30 CO2) BUN (test code = 23 MG/DL 7-17 H BUN) CREA (test code = 1.0 MG/DL 0.7-1.2 CREA) GLUCOSE (test code 118 MG/DL 70-99 H Fasting glucose = GLUCOSE) normal <100 MG/ DL- [employer] recommendation* * CALCIUM (test code 8.7 MG/DL 8.4-10.2 = CABLOOD) GFR (test code = 61 A GFR of >9 0 GFR) mL/min/1.73m2 mL/min/1.73m2 is considered norm al. [id number] 08:26:00 Test Item Value Reference Range Interpretation Comments WBC (test code = 13.1 K/UL 3.5-10.9 H WBC) RBC (test code = 4.18 M/UL 4.0-5.0 RBC) HGB (test code = 12.7 G/DL 11.5-15.5 HGB) HCT (test code = 38.0 % 34-46 HCT) MCV (test code = 90.9 FL 80-98 MCV) MCH (test code = 30.4 PG 28-32 MCH) MCHC (test code = 33.4 G/DL 32.5-36.5 MCHC) RDW (test code = 14.3 % 11.5-14.5 RDW) PLT (test code = 155 K/UL 150-450 PLT) MPV (test code = 9.7 FL 7.4-10.4 MPV) MANDIFF (test code = NO MANDIFF) SCAN (test code = NO SCAN) NEUT% (test code = 74.1 % 40-75 NEUT%) LYMPH% (test code = 18.8 % 24-44 L LYMPH%) MONO% (test code = 5.6 % 0-13 MONO%) EOS% (test code = 0.8 % 0-4 EOS%) BASO % (test code = 0.3 % 0-2 BASO%) IG% (test code = 0.4 % 0-1 IG% = Metam yelocytes, IG%) Myelocytes, and Promyelocytes. (Immature neutr ophils not including " bands".) > 3% IG indic ates risk of sepsis NRBC% (test code = 0 /100 WBC NRBC%) ABS NEUT (test code 9.7 K/UL 1.2-7.2 H = NEUT) WHOLE BLOOD [id number] 16:11:00 Test Item Value Reference Range Interpretation Comments WHOLE BLOOD GLUCOSE 145 mg/dL 70-99 H Fastin g glucose (test code = POC GLU) normal <100 MG/DL- [employer] recommend ation CULTURE, [id number] 12:04:00 Test Item Value Reference Range Interpretation Comments CULTABSC (test code = CULTABSC) CULTABSC (test code = [id number]) [facility] 2017-06-06 902 MRSA ISOLATED IN ABSCESS CULTURE; CONTACT PRECAUTIONS INDICATED FOR INPATIENTS CALLED TO/READ BACK BY:Nohelia BONDS CALLED INFECTION PREVENTION @9:02 [facility] 2017-06-06 903 ID AND/OR SENSITIVITY TO FOLLOW PRELIMINARY REPORT WHOLE BLOOD [id number] 10:56:00 Test Item Value Reference Range Interpretation Comments WHOLE BLOOD GLUCOSE 139 mg/dL 70-99 H Fastin g glucose (test code = POC GLU) normal <100 MG/DL- [employer] recommend ation BMP, BASIC METABOLIC [id number] 10:16:00 Test Item Value Reference Range Interpretation Comments SODIUM (test code = 129 MMOL/L 137-145 L NA) K+ (test code = 4.6 MMOL/L 3.5-5.1 PLEASE NOTE NEW KSERUM) REFERENCE RANGE (S) IN EFFECT EFFECTIVE 010 - NEW ANALYZER (V ITROS 5600) CHLORIDE (test code 96 MMOL/L 98-107 L = CL) CO2 (test code = 20 MMOL/L 22-30 L CO2) BUN (test code = 21 MG/DL 7-17 H BUN) CREA (test code = 1.1 MG/DL 0.7-1.2 CREA) GLUCOSE (test code 130 MG/DL 70-99 H Fasting glucose = GLUCOSE) normal <100 MG/ DL- [employer] recommendation* * CALCIUM (test code 9.1 MG/DL 8.4-10.2 = CABLOOD) GFR (test code = 55 A GFR of >9 0 GFR) mL/min/1.73m2 mL/min/1.73m2 is considered norm al. [id number] 09:51:00 Test Item Value Reference Range Interpretation Comments WBC (test code = 18.1 K/UL 3.5-10.9 H WBC) RBC (test code = 4.13 M/UL 4.0-5.0 RBC) HGB (test code = 12.8 G/DL 11.5-15.5 HGB) HCT (test code = 37.6 % 34-46 HCT) MCV (test code = 91.0 FL 80-98 MCV) MCH (test code = 31.0 PG 28-32 MCH) MCHC (test code = 34.0 G/DL 32.5-36.5 MCHC) RDW (test code = 14.3 % 11.5-14.5 RDW) PLT (test code = 167 K/UL 150-450 PLT) MPV (test code = 10.5 FL 7.4-10.4 H MPV) MANDIFF (test code = NO MANDIFF) SCAN (test code = NO SCAN) NEUT% (test code = 85.7 % 40-75 H NEUT%) LYMPH% (test code = 9.4 % 24-44 L LYMPH%) MONO% (test code = 4.0 % 0-13 MONO%) EOS% (test code = 0.1 % 0-4 EOS%) BASO % (test code = 0.2 % 0-2 BASO%) IG% (test code = 0.6 % 0-1 IG% = Metam yelocytes, IG%) Myelocytes, and Promyelocytes. (Immature neutr ophils not including " bands".) > 3% IG indic ates risk of sepsis NRBC% (test code = 0 /100 WBC NRBC%) ABS NEUT (test code 15.5 K/UL 1.2-7.2 H = NEUT) VANCOMYCIN [id number] 09:27:00 Test Item Value Reference Range Interpretation Comments VANCTROU (test code = 17 UG/ML 10-20 In [place] y rare cases VANCTROU) heterophile ant ibodies may interfere w ith reagent causing erroneously low results. Any Vancomycin level result that is inconsistent wi th the clinical presen tation should be confi rmed with an alternate te st method. BLOOD [id number] 07:08:00 Test Item Value Reference Range Interpretation Comments Report Text (test LOT 2017-06-021039 code = Report Text) Report Text7 (test BLOOD CULTURES HELD FOR code = Report 5 DAYS BEFORE FINAL Text7) Report Text8 (test code = Report Text8) Report Text9 (test [employer] code = Report MICROBIOLOGY SUGGESTS THAT Text9) Report Text10 (test MOST CASES OF BACTEREMIA code = Report ARE DETECTED BY USING Text10) Report Text11 (test THREE SETS OF SEPARATELY code = Report COLLECTED BLOOD CULTURES. Text11) Report Text12 (test LOT 2017-06-021040 code = Report Text12) Report Text13 (test CONVERSELY, A SINGLE BLOOD code = Report CULTURE MAY MISS Text13) Report Text14 (test INTERMITTENTLY OCCURRING code = Report BACTEREMIA AND MAKE Text14) Report Text15 (test IT DIFFICULT TO INTERPRET code = Report THE CLINICAL Text15) Report Text16 (test SIGNIFICANCE OF CERTAIN code = Report ISOLATED ORGANISMS. Text16) Report Text17 (test code = Report Text17) Report Text18 (test LOT [id number] code = Report Text18) Report Text19 (test DRAWN FROM LEFT code = Report ANTICUBITAL VEIN Text19) Report Text20 (test code = Report Text20) Report Text21 (test [facility] 2017-06-04 934 code = Report Text21) Report Text22 (test NO GROWTH WITHIN 1 DAY code = Report Text22) Report Text23 (test PRELIMINARY REPORT code = Report Text23) Report Text24 (test code = Report Text24) Report Text25 (test PDG 2017-06-04 941 code = Report Text25) Report Text26 (test NO GROWTH WITHIN 2 DAYS code = Report Text26) Report Text27 (test PRELIMINARY REPORT code = Report Text27) Report Text28 (test code = Report Text28) Report Text29 (test PDG 2017-06-07 708 code = Report Text29) Report Text30 (test NO GROWTH WITHIN 5 DAYS code = Report Text30) Report Text31 (test FINAL REPORT code = Report Text31) BLOOD [id number] 07:08:00 Test Item Value Reference Range Interpretation Comments Report Text (test LOT 2017-06-02 1040 code = Report Text) Report Text7 (test BLOOD CULTURES HELD FOR code = Report 5 DAYS BEFORE FINAL Text7) Report Text8 (test code = Report Text8) Report Text9 (test [employer] code = Report MICROBIOLOGY SUGGESTS THAT Text9) Report Text10 (test MOST CASES OF BACTEREMIA code = Report ARE DETECTED BY USING Text10) Report Text11 (test THREE SETS OF SEPARATELY code = Report COLLECTED BLOOD CULTURES. Text11) Report Text12 (test LOT 2017-06-02 1041 code = Report Text12) Report Text13 (test CONVERSELY, A SINGLE BLOOD code = Report CULTURE MAY MISS Text13) Report Text14 (test INTERMITTENTLY OCCURRING code = Report BACTEREMIA AND MAKE Text14) Report Text15 (test IT DIFFICULT TO INTERPRET code = Report THE CLINICAL Text15) Report Text16 (test SIGNIFICANCE OF CERTAIN code = Report ISOLATED ORGANISMS. Text16) Report Text17 (test code = Report Text17) Report Text18 (test LOT 2017-06-02 1042 code = Report Text18) Report Text19 (test DRAWN FROM LEFT code = Report ANTICUBITAL VEIN Text19) Report Text20 (test code = Report Text20) Report Text21 (test PDG 2017-06-04 934 code = Report Text21) Report Text22 (test NO GROWTH WITHIN 1 DAY code = Report Text22) Report Text23 (test PRELIMINARY REPORT code = Report Text23) Report Text24 (test code = Report Text24) Report Text25 (test PDG 2017-06-04 941 code = Report Text25) Report Text26 (test NO GROWTH WITHIN 2 DAYS code = Report Text26) Report Text27 (test PRELIMINARY REPORT code = Report Text27) Report Text28 (test code = Report Text28) Report Text29 (test PDG 2017-06-07 708 code = Report Text29) Report Text30 (test NO GROWTH WITHIN 5 DAYS code = Report Text30) Report Text31 (test FINAL REPORT code = Report Text31) WHOLE BLOOD [id number] 22:16:00 Test Item Value Reference Range Interpretation Comments WHOLE BLOOD GLUCOSE 285 mg/dL 70-99 H Fastin g glucose (test code = POC GLU) normal <100 MG/DL- [employer] recommend ation WHOLE BLOOD [id number] 16:31:00 Test Item Value Reference Range Interpretation Comments WHOLE BLOOD GLUCOSE 144 mg/dL 70-99 H Fastin g glucose (test code = POC GLU) normal <100 MG/DL- [employer] recommend ation WHOLE BLOOD [id number] 11:18:00 Test Item Value Reference Range Interpretation Comments WHOLE BLOOD GLUCOSE 170 mg/dL 70-99 H Fastin g glucose (test code = POC GLU) normal <100 MG/DL- [employer] recommend ation WHOLE BLOOD [id number] 07:51:00 Test Item Value Reference Range Interpretation Comments WHOLE BLOOD GLUCOSE 101 mg/dL 70-99 H Fastin g glucose (test code = POC GLU) normal <100 MG/DL- [employer] recommend ation WHOLE BLOOD [id number] 20:41:00 Test Item Value Reference Range Interpretation Comments WHOLE BLOOD GLUCOSE 173 mg/dL 70-99 H Fastin g glucose (test code = POC GLU) normal <100 MG/DL- [employer] recommend ation WHOLE BLOOD [id number] 17:30:00 Test Item Value Reference Range Interpretation Comments WHOLE BLOOD GLUCOSE 220 mg/dL 70-99 H Fastin g glucose (test code = POC GLU) normal <100 MG/DL- [employer] recommend ation GRAM [id number] 12:24:00 Test Item Value Reference Range Interpretation Comments Report Text (test code [facility] 2017-06-05 1224 = Report Text) Report Text7 (test MANY WBC SEEN code = Report Text7) Report Text8 (test DM 2017-06-05 1225 code = Report Text8) Report Text9 (test FEW GRAM POSITIVE COCCI code = Report Text9) SEEN ER SCREEN FOR HIV 11:29:00 Test Item Value Reference Range Interpretation Comments HIV 1/2 AB (test NONREACTIVE NONREACTIVE This test i s used for code = SCRN HIV) SCREENING p urposes only. All reactive re sults are prelimenary and confirmation re sults will follow. WHOLE BLOOD [id number] 09:34:00 Test Item Value Reference Range Interpretation Comments WHOLE BLOOD GLUCOSE 87 mg/dL 70-99 Fastin g glucose (test code = POC GLU) normal <100 MG/DL- [employer] recommendation* * BMP, BASIC METABOLIC [id number] 08:56:00 Test Item Value Reference Range Interpretation Comments SODIUM (test code = 129 MMOL/L 137-145 L NA) K+ (test code = 3.6 MMOL/L 3.5-5.1 PLEASE NOTE NEW KSERUM) REFERENCE RANGE (S) IN EFFECT EFFECTIVE 010 - NEW ANALYZER (V ITROS 5600) CHLORIDE (test code 97 MMOL/L 98-107 L = CL) CO2 (test code = 24 MMOL/L 22-30 CO2) BUN (test code = 23 MG/DL 7-17 H BUN) CREA (test code = 1.1 MG/DL 0.7-1.2 CREA) GLUCOSE (test code 93 MG/DL 70-99 Fasting glucose = GLUCOSE) normal <100 MG/ DL- [employer] recommendation* * CALCIUM (test code 9.1 MG/DL 8.4-10.2 = CABLOOD) GFR (test code = 55 A GFR of >9 0 GFR) mL/min/1.73m2 mL/min/1.73m2 is considered norm al. [id number] 08:36:00 Test Item Value Reference Range Interpretation Comments WBC (test code = 12.7 K/UL 3.5-10.9 H WBC) RBC (test code = 4.47 M/UL 4.0-5.0 RBC) HGB (test code = 13.7 G/DL 11.5-15.5 HGB) HCT (test code = 39.7 % 34-46 HCT) MCV (test code = 88.8 FL 80-98 MCV) MCH (test code = 30.6 PG 28-32 MCH) MCHC (test code = 34.5 G/DL 32.5-36.5 MCHC) RDW (test code = 13.7 % 11.5-14.5 RDW) PLT (test code = 220 K/UL 150-450 PLT) MPV (test code = 9.6 FL 7.4-10.4 MPV) MANDIFF (test code = NO MANDIFF) SCAN (test code = NO SCAN) NEUT% (test code = 69.5 % 40-75 NEUT%) LYMPH% (test code = 22.5 % 24-44 L LYMPH%) MONO% (test code = 6.5 % 0-13 MONO%) EOS% (test code = 0.7 % 0-4 EOS%) BASO % (test code = 0.2 % 0-2 BASO%) IG% (test code = 0.6 % 0-1 IG% = Metam yelocytes, IG%) Myelocytes, and Promyelocytes. (Immature neutr ophils not including " bands".) > 3% IG indic ates risk of sepsis NRBC% (test code = 0 /100 WBC NRBC%) ABS NEUT (test code 8.8 K/UL 1.2-7.2 H = NEUT) WHOLE BLOOD [id number] 08:02:00 Test Item Value Reference Range Interpretation Comments WHOLE BLOOD GLUCOSE 105 mg/dL 70-99 H Fastin g glucose (test code = POC GLU) normal <100 MG/DL- [employer] recommend ation WHOLE BLOOD [id number] 21:32:00 Test Item Value Reference Range Interpretation Comments WHOLE BLOOD GLUCOSE 141 mg/dL 70-99 H Fastin g glucose (test code = POC GLU) normal <100 MG/DL- [employer] recommend ation WHOLE BLOOD [id number] 21:01:00 Test Item Value Reference Range Interpretation Comments WHOLE BLOOD GLUCOSE 135 mg/dL 70-99 H Fastin g glucose (test code = POC GLU) normal <100 MG/DL- [employer] recommend ation [id number] 15:44:00 Test Item Value Reference Range Interpretation Comments WBC (test code = WBC) 17.1 K/UL 3.5-10.9 H RBC (test code = RBC) 5.2 M/UL 4.0-5.0 H HGB (test code = HGB) 15.8 G/DL 11.5-15.5 H HCT (test code = HCT) 44.4 % 34-46 MCV (test code = MCV) 85.9 FL 80-98 MCH (test code = MCH) 30.6 PG 28-32 MCHC (test code = MCHC) 35.6 G/DL 32.5-36.5 RDW (test code = RDW) 13.3 % 11.5-14.5 PLT (test code = PLT) 306 K/UL 150-450 MPV (test code = MPV) 10.3 FL 7.4-10.4 MANDIFF (test code = MANDIFF) NO SCAN (test code = SCAN) NO NEUT% (test code = NEUT%) 67.2 % 40-75 LYMPH% (test code = LYMPH%) 24.2 % 24-44 MONO% (test code = MONO%) 7.4 % 0-13 EOS% (test code = EOS%) 0.4 % 0-4 BASO % (test code = BASO%) 0.2 % 0-2 IG (test code = IG) 0.6 % 0-1 CT HEAD W/O [id number] 12:52:00[address] [address]ANMCGFBOPV IMAGING REPORTPatient Name: WAYNE KRAMER MDate of Service: [id number]: 52 Sex: F Order #: [id number] Room: [address] [place], [place] [address]OB: 1965 X-Ray Number: [id number] Record Number: [id number] Hospital Number: [id number] Physician: ALPHONSO DOSHI POrdering Physician: SHAAN FERRARO-SURGERYHead CT 06/03/2017History: AMS. Altered mental status. Altered level of consciousness. Newonset dizziness .Comparison: NoneTechnique: Unenhanced CT imaging of the head. This CT exam was performedusing oneor more of the following dose reduction techniques: Automatedexposure control, adjustment of the mA and/or KV according to patient size,or use of iterative reconstruction technique.Findings:There is noevidence of acute intracranial abnormality. Specifically, thereis no evidence of acute hemorrhage, infarct, contusion, hydrocephalus,midline shift, or abnormal extra- axial collection. The calvarium is intact.The paranasal sinuses and mastoid air cells are clear.Impression:1. No acute intracranial abnormality.Electronically Signed By: Víctor Goldstein M.D., 06/04/2017 12:49 PMLegally authenticated by JOSE ARANDA 2017-06-04 12:49:48% HEMOGLOBIN A1C (GLYCATED)2017-06-04 12:21:00 Test Item Value Reference Range Interpretation Comments HEMOGLOBIN A1C (test 10.0 % 0-6 H TH ERAPEUTIC TARGET code = GLYCO-) FOR THE TREAT MENT OF DIABETES M OLIVER PATIENTS IS < 7 % HBA1C. [employer] DIAB[facility]ES [facility] 2002;25:S33-S49 [id number] 12:20:00 Test Item Value Reference Range Interpretation Comments SODIUM (test code = 124 MMOL/L 137-145 L NA) K+ (test code = 4.1 MMOL/L 3.5-5.1 PLEASE NOTE NEW KSERUM) REFERENCE RANGE (S) IN EFFECT EFFECTIVE 010 - NEW ANALYZER (V ITROS 5600) CHLORIDE (test code 89 MMOL/L 98-107 L = CL) CO2 (test code = 20 MMOL/L 22-30 L CO2) BUN (test code = 41 MG/DL 7-17 H BUN) CREA (test code = 1.2 MG/DL 0.7-1.2 CREA) GLUCOSE (test code 128 MG/DL 70-99 H Fasting glucose = GLUCOSE) normal <100 MG/ DL- [employer] recommendation* * CALCIUM (test code 9.2 MG/DL 8.4-10.2 = CABLOOD) TOTPROT (test code 6.2 G/DL 6.3-8.2 L = TOTPROT) ALBUMIN (test code 3.3 G/DL 3.5-5.0 L = ALBSERUM) BILITOT (test code 0.8 MG/DL 0.2-1.3 = BILITOT) AST (test code = 44 U/L 15-46 AST) PHOSALK (test code 692 U/L 38-126 H = PHOSALK) ALT (test code = 63 U/L 13-69 ALT) GFR (test code = 50 A GFR of >9 0 GFR) mL/min/1.73m2 mL/min/1.73m2 is considered norm al. WHOLE BLOOD [id number] 11:31:00 Test Item Value Reference Range Interpretation Comments WHOLE BLOOD GLUCOSE 183 mg/dL 70-99 H Fastin g glucose (test code = POC GLU) normal <100 MG/DL- [employer] recommend ation BMP, BASIC METABOLIC [id number] 09:14:00 Test Item Value Reference Range Interpretation Comments SODIUM (test code = 129 MMOL/L 137-145 L NA) K+ (test code = 3.4 MMOL/L 3.5-5.1 L PLEASE NOTE NEW KSERUM) REFERENCE RANGE (S) IN EFFECT EFFECTIVE 010 - NEW ANALYZER (V ITROS 5600) CHLORIDE (test code 94 MMOL/L 98-107 L = CL) CO2 (test code = 24 MMOL/L 22-30 CO2) BUN (test code = 24 MG/DL 7-17 H BUN) CREA (test code = 1.1 MG/DL 0.7-1.2 CREA) GLUCOSE (test code 90 MG/DL 70-99 Fasting glucose = GLUCOSE) normal <100 MG/ DL- [employer] recommendation* * CALCIUM (test code 9.4 MG/DL 8.4-10.2 = CABLOOD) GFR (test code = 55 A GFR of >9 0 GFR) mL/min/1.73m2 mL/min/1.73m2 is considered norm al. VANCOMYCIN [id number] 09:14:00 Test Item Value Reference Range Interpretation Comments VANCTROU (test code = 13 UG/ML 10-20 In [place] rare cases VANCTROU) heterophile ant ibodies may interfere w ith reagent causing erroneously low results. Any Vancomycin level result that is inconsistent wi th the clinical presen tation should be confi rmed with an alternate te st method. [id number] 08:38:00 Test Item Value Reference Range Interpretation Comments WBC (test code = 14.4 K/UL 3.5-10.9 H WBC) RBC (test code = 4.97 M/UL 4.0-5.0 RBC) HGB (test code = 15.2 G/DL 11.5-15.5 HGB) HCT (test code = 43.6 % 34-46 HCT) MCV (test code = 87.7 FL 80-98 MCV) MCH (test code = 30.6 PG 28-32 MCH) MCHC (test code = 34.9 G/DL 32.5-36.5 MCHC) RDW (test code = 13.4 % 11.5-14.5 RDW) PLT (test code = 228 K/UL 150-450 PLT) MPV (test code = 9.6 FL 7.4-10.4 MPV) MANDIFF (test code = NO MANDIFF) SCAN (test code = NO SCAN) NEUT% (test code = 71.2 % 40-75 NEUT%) LYMPH% (test code = 22.2 % 24-44 L LYMPH%) MONO% (test code = 5.4 % 0-13 MONO%) EOS% (test code = 0.4 % 0-4 EOS%) BASO % (test code = 0.2 % 0-2 BASO%) IG% (test code = 0.6 % 0-1 IG% = Metam yelocytes, IG%) Myelocytes, and Promyelocytes. (Immature neutr ophils not including " bands".) > 3% IG indic ates risk of sepsis NRBC% (test code = 0 /100 WBC NRBC%) ABS NEUT (test code 10.2 K/UL 1.2-7.2 H = NEUT) WHOLE BLOOD [id number] 07:51:00 Test Item Value Reference Range Interpretation Comments WHOLE BLOOD GLUCOSE 90 mg/dL 70-99 Fastin g glucose (test code = POC GLU) normal <100 MG/DL- [employer] recommendation* * WHOLE BLOOD [id number] 05:23:00 Test Item Value Reference Range Interpretation Comments WHOLE BLOOD GLUCOSE 142 mg/dL 70-99 H Fastin g glucose (test code = POC GLU) normal <100 MG/DL- [employer] recommend ation WHOLE BLOOD [id number] 05:21:00 Test Item Value Reference Range Interpretation Comments WHOLE BLOOD GLUCOSE 199 mg/dL 70-99 H Fastin g glucose (test code = POC GLU) normal <100 MG/DL- [employer] recommend ation BMP, BASIC METABOLIC [id number] 22:30:00 Test Item Value Reference Range Interpretation Comments SODIUM (test code = 120 MMOL/L 137-145 L NA) K+ (test code = 3.8 MMOL/L 3.5-5.1 PLEASE NOTE NEW KSERUM) REFERENCE RANGE (S) IN EFFECT EFFECTIVE 010 - NEW ANALYZER (V ITROS 5600) CHLORIDE (test code 87 MMOL/L 98-107 L = CL) CO2 (test code = 23 MMOL/L 22-30 CO2) BUN (test code = 46 MG/DL 7-17 H BUN) CREA (test code = 1.3 MG/DL 0.7-1.2 H CREA) GLUCOSE (test code 144 MG/DL 70-99 H Fasting glucose = GLUCOSE) normal <100 MG/ DL- [employer] recommendation* * CALCIUM (test code 9.4 MG/DL 8.4-10.2 = CABLOOD) GFR (test code = 45 A GFR of >9 0 GFR) mL/min/1.73m2 mL/min/1.73m2 is considered norm al. [id number] 22:07:00 Test Item Value Reference Range Interpretation Comments WBC (test code = 16.5 K/UL 3.5-10.9 H WBC) RBC (test code = 5.14 M/UL 4.0-5.0 H RBC) HGB (test code = 15.6 G/DL 11.5-15.5 H HGB) HCT (test code = 43.8 % 34-46 HCT) MCV (test code = 85.2 FL 80-98 MCV) MCH (test code = 30.4 PG 28-32 MCH) MCHC (test code = 35.6 G/DL 32.5-36.5 MCHC) RDW (test code = 13.1 % 11.5-14.5 RDW) PLT (test code = 298 K/UL 150-450 PLT) MPV (test code = 9.8 FL 7.4-10.4 MPV) MANDIFF (test code = NO MANDIFF) SCAN (test code = NO SCAN) NEUT% (test code = 64.5 % 40-75 NEUT%) LYMPH% (test code = 26.9 % 24-44 LYMPH%) MONO% (test code = 7.6 % 0-13 MONO%) EOS% (test code = 0.4 % 0-4 EOS%) BASO % (test code = 0.2 % 0-2 BASO%) IG% (test code = 0.4 % 0-1 IG% = Metam yelocytes, IG%) Myelocytes, and Promyelocytes. (Immature neutr ophils not including " bands".) > 3% IG indic ates risk of sepsis NRBC% (test code = 0 /100 WBC NRBC%) ABS NEUT (test code 10.6 K/UL 1.2-7.2 H = NEUT) WHOLE BLOOD [id number] 21:44:00 Test Item Value Reference Range Interpretation Comments WHOLE BLOOD GLUCOSE 152 mg/dL 70-99 H Fastin g glucose (test code = POC GLU) normal <100 MG/DL- [employer] recommend ation ULTRASOUND [id number] 20:26:[address] [address]ZPCPZGTVBX IMAGING REPORTPatient Name: WAYNE KRAMER MDate of Service: 97-03-4718Drk: 52 Sex: F Order #: [id number] Room: [address] [place], [place] [address]OB: 1965 X-Ray Number: [id number] Record Number: [id number] Hospital Number: [id number] Physician: ALPHONSO DOSHI POrdering Physician: SHAAN FERRARO-SURGERYULTRASOUND AXILLA, 06/02/2017 5:03 PM:History: . . Right axillary and right [...] authenticated by PEPE ARANDA 2017-06-02 20:24:03WHOLE BLOOD GLUCOSE 2017-06-02 16:33:00 Test Item Value Reference Range Interpretation Comments WHOLE BLOOD GLUCOSE 208 mg/dL 70-99 H Fastin g glucose (test code = POC GLU) normal <100 MG/DL- [employer] recommend ation [id number] 10:13:00[place] [address]DIAGNOSTIC IMAGING REPORTPatient Name: WAYNE KRAMER MDate of Service: 76-35-3637Ykr: 52 Sex: F Order #: [id number] Room:ERSDOB: 1965 X-Ray Number: [id number] Record Number: [id number] Hospital Number: [id number] Physician: ANDRIA ROSEOrdershen Physician: DANILO BERKOWITZ 2 views 10:00 AMHISTORY: RIGHT arm pain.FINDINGS:There is no acute fracture or dislocation.There are no lytic or blastic bone lesions.There are no definite osseous erosions or bony destruction detected.There is no radiopaque foreign body.There is no soft tissue gas present.IMPRESSION:No acute bony abnormality is identified.Electronically Signed By: Arsalan Bailey M.D., 06/02/2017 10:11 AMLegally authenticated by TOÑO 2017-06-02 10:11:34CHEST XR 2 [id number] 09:34:00[place]AC[place] [id number] IMAGING REPORTPat ient Name: WAYNE KRAMER of Service: 26-03-1840Rcn: 52 Sex: F Order #: [id number] Room:ERSDOB: 1965 X-Ray Number: [id number] Record Number: [id number] Hospital Number: [id number] Physician: ANDRIA ROSEOrdershen Physician: DANILO BERKOWITZ 2 views 9:00 AMCOMPARISON: 05/13/2017HISTORY: Arm pain.FINDINGS:Heart size is normal.There is no focal lung consolidation.Thereis no definite pleural effusion or pneumothorax identified.Mild hyperinflation could relate to COPD.There are old healed bilateral rib fracture deformities.IMPRESSION:No acute cardiopulmonary process.Electronically Signed By: Arsalan Bailey M.D., 06/02/2017 9:31 AMLegally authenticated by FLOR [id number] 09:31:[id number] 09:29:00 Test Item Value Reference Range Interpretation Comments SODIUM (test code = 119 MMOL/L 137-145 LL NA) K+ (test code = 3.7 MMOL/L 3.5-5.1 PLEASE NOTE NEW KSERUM) REFERENCE RANGE (S) IN EFFECT EFFECTIVE 010 - NEW ANALYZER (V ITROS 5600) CHLORIDE (test code 81 MMOL/L 98-107 L = CL) CO2 (test code = 23 MMOL/L 22-30 CO2) BUN (test code = 51 MG/DL 7-17 H BUN) CREA (test code = 1.6 MG/DL 0.7-1.2 H CREA) GLUCOSE (test code 224 MG/DL 70-99 H Fasting glucose = GLUCOSE) normal <100 MG/ DL- [employer] recommendation* * CALCIUM (test code 9.9 MG/DL 8.4-10.2 = CABLOOD) TOTPROT (test code 7.5 G/DL 6.3-8.2 = TOTPROT) ALBUMIN (test code 4.0 G/DL 3.5-5.0 = ALBSERUM) BILITOT (test code 0.8 MG/DL 0.2-1.3 = BILITOT) AST (test code = 47 U/L 15-46 H AST) PHOSALK (test code 925 U/L 38-126 H = PHOSALK) ALT (test code = 75 U/L 13-69 H ALT) GFR (test code = 36 A GFR of >9 0 GFR) mL/min/1.73m2 mL/min/1.73m2 is considered norm al. RESULTS VERIFIED.C'd TO Karen MORRISRN/ER @ 0925 06/02/17--[id number] 08:58:00 Test Item Value Reference Range Interpretation Comments WBC (test code = 18.5 K/UL 3.5-10.9 H WBC) RBC (test code = 5.34 M/UL 4.0-5.0 H RBC) HGB (test code = 16.3 G/DL 11.5-15.5 H HGB) HCT (test code = 46.2 % 34-46 H HCT) MCV (test code = 86.5 FL 80-98 MCV) MCH (test code = 30.5 PG 28-32 MCH) MCHC (test code = 35.3 G/DL 32.5-36.5 MCHC) RDW (test code = 13.2 % 11.5-14.5 RDW) PLT (test code = 390 K/UL 150-450 PLT) MPV (test code = 9.8 FL 7.4-10.4 MPV) MANDIFF (test code = NO MANDIFF) SCAN (test code = NO SCAN) NEUT% (test code = 68.6 % 40-75 NEUT%) LYMPH% (test code = 24.1 % 24-44 LYMPH%) MONO% (test code = 6.1 % 0-13 MONO%) EOS% (test code = 0.4 % 0-4 EOS%) BASO % (test code = 0.3 % 0-2 BASO%) IG% (test code = 0.5 % 0-1 IG% = Metam yelocytes, IG%) Myelocytes, and Promyelocytes. (Immature neutr ophils not including " bands".) > 3% IG indic ates risk of sepsis NRBC% (test code = 0 /100 WBC NRBC%) ABS NEUT (test code 12.7 K/UL 1.2-7.2 H = NEUT) BLOOD [id number] 07:16:00 Test Item Value Reference Range Interpretation Comments Report Text (test [facility] 2017-05-131415 code = Report Text) Report Text7 (test BLOOD CULTURES HELD FOR code = Report 5 DAYS BEFORE FINAL Text7) Report Text8 (test code = Report Text8) Report Text9 (test [employer] code = Report MICROBIOLOGY SUGGESTS THAT Text9) Report Text10 (test MOST CASES OF BACTEREMIA code = Report ARE DETECTED BY USING Text10) Report Text11 (test THREE SETS OF SEPARATELY code = Report COLLECTED BLOOD CULTURES. Text11) Report Text12 (test [facility] 2017-05-131416 code = Report Text12) Report Text13 (test CONVERSELY, A SINGLE BLOOD code = Report CULTURE MAY MISS Text13) Report Text14 (test INTERMITTENTLY OCCURRING code = Report BACTEREMIA AND MAKE Text14) Report Text15 (test IT DIFFICULT TO INTERPRET code = Report THE CLINICAL Text15) Report Text16 (test SIGNIFICANCE OF CERTAIN code = Report ISOLATED ORGANISMS. Text16) Report Text17 (test code = Report Text17) Report Text18 (test [facility] 2017-05-13 1418 code = Report Text18) Report Text19 (test COLLECTION SITE code = Report UNSPECIFIED Text19) Report Text20 (test [facility] 2017-05-14 1342 code = Report Text20) Report Text21 (test NO GROWTH WITHIN 1 DAY code = Report Text21) Report Text22 (test PRELIMINARY REPORT code = Report Text22) Report Text23 (test code = Report Text23) Report Text24 (test [facility] 2017-05-15 653 code = Report Text24) Report Text25 (test NO GROWTH WITHIN 2 DAYS code = Report Text25) Report Text26 (test PRELIMINARY REPORT code = Report Text26) Report Text27 (test code = Report Text27) Report Text28 (test [facility] 2017-05-18 716 code = Report Text28) Report Text29 (test NO GROWTH WITHIN 5 DAYS code = Report Text29) Report Text30 (test FINAL REPORT code = Report Text30) BLOOD [id number] 07:16:00 Test Item Value Reference Range Interpretation Comments Report Text (test [facility] 2017-05-13 1228 code = Report Text) Report Text7 (test BLOOD CULTURES HELD FOR code = Report 5 DAYS BEFORE FINAL Text7) Report Text8 (test code = Report Text8) Report Text9 (test [employer] code = Report MICROBIOLOGY SUGGESTS THAT Text9) Report Text10 (test MOST CASES OF BACTEREMIA code = Report ARE DETECTED BY USING Text10) Report Text11 (test THREE SETS OF SEPARATELY code = Report COLLECTED BLOOD CULTURES. Text11) Report Text12 (test [facility] 2017-05-13 1229 code = Report Text12) Report Text13 (test CONVERSELY, A SINGLE BLOOD code = Report CULTURE MAY MISS Text13) Report Text14 (test INTERMITTENTLY OCCURRING code = Report BACTEREMIA AND MAKE Text14) Report Text15 (test IT DIFFICULT TO INTERPRET code = Report THE CLINICAL Text15) Report Text16 (test SIGNIFICANCE OF CERTAIN code = Report ISOLATED ORGANISMS. Text16) Report Text17 (test code = Report Text17) Report Text18 (test [facility] 2017-05-13 1230 code = Report Text18) Report Text19 (test COLLECTION SITE code = Report UNSPECIFIED Text19) Report Text20 (test [facility] 2017-05-14 1342 code = Report Text20) Report Text21 (test NO GROWTH WITHIN 1 DAY code = Report Text21) Report Text22 (test PRELIMINARY REPORT code = Report Text22) Report Text23 (test code = Report Text23) Report Text24 (test [facility] 2017-05-15 653 code = Report Text24) Report Text25 (test NO GROWTH WITHIN 2 DAYS code = Report Text25) Report Text26 (test PRELIMINARY REPORT code = Report Text26) Report Text27 (test code = Report Text27) Report Text28 (test [facility] 2017-05-18 716 code = Report Text28) Report Text29 (test NO GROWTH WITHIN 5 DAYS code = Report Text29) Report Text30 (test FINAL REPORT code = Report Text30) WHOLE BLOOD [id number] 09:57:00 Test Item Value Reference Range Interpretation Comments WHOLE BLOOD GLUCOSE 251 mg/dL 70-99 H Fastin g glucose (test code = POC GLU) normal <100 MG/DL- [employer] recommend ation WHOLE BLOOD [id number] 08:19:00 Test Item Value Reference Range Interpretation Comments WHOLE BLOOD GLUCOSE 211 mg/dL 70-99 H Fastin g glucose (test code = POC GLU) normal <100 MG/DL- [employer] recommend ation BMP, BASIC METABOLIC [id number] 04:57:00 Test Item Value Reference Range Interpretation Comments SODIUM (test code = 123 MMOL/L 137-145 L NA) K+ (test code = 3.7 MMOL/L 3.5-5.1 PLEASE NOTE NEW KSERUM) REFERENCE RANGE (S) IN EFFECT EFFECTIVE 010 - NEW ANALYZER (V ITROS 5600) CHLORIDE (test code 88 MMOL/L 98-107 L = CL) CO2 (test code = 23 MMOL/L 22-30 CO2) BUN (test code = 50 MG/DL 7-17 H BUN) CREA (test code = 1.1 MG/DL 0.7-1.2 CREA) GLUCOSE (test code 153 MG/DL 70-99 H Fasting glucose = GLUCOSE) normal <100 MG/ DL- [employer] recommendation* * CALCIUM (test code 8.8 MG/DL 8.4-10.2 = CABLOOD) GFR (test code = 55 A GFR of >9 0 GFR) mL/min/1.73m2 mL/min/1.73m2 is considered norm al. [id number] 04:33:00 Test Item Value Reference Range Interpretation Comments WBC (test code = 19.1 K/UL 3.5-10.9 H WBC) RBC (test code = 4.95 M/UL 4.0-5.0 RBC) HGB (test code = 15.1 G/DL 11.5-15.5 HGB) HCT (test code = 41.9 % 34-46 HCT) MCV (test code = 84.6 FL 80-98 MCV) MCH (test code = 30.5 PG 28-32 MCH) MCHC (test code = 36.0 G/DL 32.5-36.5 MCHC) RDW (test code = 12.5 % 11.5-14.5 RDW) PLT (test code = 225 K/UL 150-450 PLT) MPV (test code = 10.7 FL 7.4-10.4 H MPV) MANDIFF (test code = NO MANDIFF) SCAN (test code = NO SCAN) NEUT% (test code = 72.6 % 40-75 NEUT%) LYMPH% (test code = 18.2 % 24-44 L LYMPH%) MONO% (test code = 8.4 % 0-13 MONO%) EOS% (test code = 0.2 % 0-4 EOS%) BASO % (test code = 0.1 % 0-2 BASO%) IG% (test code = 0.5 % 0-1 IG% = Metam yelocytes, IG%) Myelocytes, and Promyelocytes. (Immature neutr ophils not including " bands".) > 3% IG indic ates risk of sepsis NRBC% (test code = 0 /100 WBC NRBC%) ABS NEUT (test code 13.9 K/UL 1.2-7.2 H = NEUT) WHOLE BLOOD [id number] 20:36:00 Test Item Value Reference Range Interpretation Comments WHOLE BLOOD GLUCOSE 163 mg/dL 70-99 H Fastin g glucose (test code = POC GLU) normal <100 MG/DL- [employer] recommend ation [id number] 14:43:00 Test Item Value Reference Range Interpretation Comments GLUCOSE (test code = URGLU) NEGATIVE MG/DL NEG-100 BILIRUBN (test code = URBILI) NEGATIVE NEGATIVE KETONE (test code = URKET) NEGATIVE MG/DL NEGATIVE BLOOD (test code = URBLD) NEGATIVE UR PH (test code = URPH) 5.0 5.0-7.5 PROTEIN (test code = URPRO) NEGATIVE MG/DL NEGATIVE NITRITES (test code = URNIT) NEGATIVE NEGATIVE UROBILINGEN (test code = 0.2 EU/DL 0.2-1.0 URURO) LEUKOCYT (test code = URLEU) NEGATIVE NEGATIVE UA COLOR (test code = UA YELLOW YELLOW COLOR) CLARITY (test code = CLARITY) CLEAR CLEAR SP GRAV (test code = URSPGRAV) 1.019 1.000-1.025 UAMICRO (test code = UAMICRO) NO BG LAB VENOUS [id number] 14:35:00 Test Item Value Reference Range Interpretation Comments SITE (test code = SITE) VENOUS SITE BGLACVEN (test code = BGLACVEN) 26.0 mg/dL 6.0-18.[address] ABDOMEN/PELVIS [id number] 14:34:[address] [id number] IMAGING REPORTPatient Name: WAYNE KRAMER MDate of Service: [id number]: 52 Sex: F Order #: [id number] Room: [facility]: 1965 X-Ray Number: [id number] Record Number: [id number] Hospital Number:[id number] Physician: JESUS MASON TANOrdering Physician: JESUS MASON [...] No acutebony abnormalities are seen. There is luqa-bq-kxvyqraw aortoiliacatherosclerotic disease.The gallbladder has been removed. A [...] limits. Ovaries may have been removed withthe uterus.IMPRESSION:Nonspecific bowel findings as discussed. Clinical correlation suggested.Follow-up may be helpful if there is further concern.Other findings as above.Electronically Signed By: Jimmie Felix M.D., 05/13/2017 2:32 PMLegally authenticated by LAST NGUYEN 2017-05-13 14:32:01THYROID STIMULATION [id number] 14:19:00 Test Item Value Reference Range Interpretation Comments TSH (test code = TSH) 1.17 UIU/ML 0.465-4.68 [id number] 14:18:00 Test Item Value Reference Range Interpretation Comments WBC (test code = 24.6 K/UL 3.5-10.9 H WBC) RBC (test code = 5.79 M/UL 4.0-5.0 H RBC) HGB (test code = 18.0 G/DL 11.5-15.5 H HGB) HCT (test code = 48.2 % 34-46 H HCT) MCV (test code = 83.2 FL 80-98 MCV) MCH (test code = 31.1 PG 28-32 MCH) MCHC (test code = 37.3 G/DL 32.5-36.5 H MCHC) RDW (test code = 12.5 % 11.5-14.5 RDW) PLT (test code = 349 K/UL 150-450 PLT) MPV (test code = 10.9 FL 7.4-10.4 H MPV) MANDIFF (test code = NO MANDIFF) SCAN (test code = YES SCAN) NEUT% (test code = 83.1 % 40-75 H NEUT%) LYMPH% (test code = 10.9 % 24-44 L LYMPH%) MONO% (test code = 4.8 % 0-13 MONO%) EOS% (test code = 0.3 % 0-4 EOS%) BASO % (test code = 0.2 % 0-2 BASO%) IG% (test code = 0.7 % 0-1 IG% = Metam yelocytes, IG%) Myelocytes, and Promyelocytes. (Immature neutr ophils not including " bands".) > 3% IG indic ates risk of sepsis NRBC% (test code = 0 /100 WBC NRBC%) PLT-EST (test code = NORMAL NORMAL PLT-EST) ABS NEUT (test code 20.5 K/UL 1.2-7.2 H = NEUT) TROPONIN I - [id number] 13:37:00 Test Item Value Reference Range Interpretation Comments TROP-I (test code 0.026 ng/ml 0.012-0.033 = TROP-I) INTERPRETIVE DA TA A TROPONIN OF LES S THAN 0.034 NG/ML IS CONSIDERED NEGATIVE A TROP ONIN OF 0.034 - 0.119 N G/ML IS CONSIDERED HITCHCOCK ZONE A TROPONIN =/> 0. 120 NG/ML IS CONSIDERED P OSITIVE CHEST 1 VIEW [id number] 13:30:[address] [id number] IMAGING REPORTPatient Name: WAYNE KRAMER MDate of Service: [id number]: 52 Sex: F Order #: [id number] Room: [facility]: 1965 X-Ray Number: [id number] Record Number: [id number] Hospital Number:[id number] Physician: JESUS MASONOrdering Physician: JESUS MASON one view 05/13/2017 at 1300 hoursHistory: Central line placementComparison: 08/13/2008Right internal jugular vein catheter tips at the right atrium level. Nopneumothorax.Cardiac, hilar, and mediastinal structures are within normal limits. Lungsare well-aerated and clear. No other acute bony or soft tissueabnormalities are identified.Impression:Central line in good position without pneumothorax. No other acute process.Electronically Signed By: Jimmie Felix M.D., 05/13/2017 1:28 PMLegally authenticated by LAST NGUYEN 2017-05-13 13:28:37LIVER [id number] 13:26:00 Test Item Value Reference Range Interpretation Comments TOTPROT (test code = TOTPROT) 6.8 G/DL 6.3-8.2 ALBUMIN (test code = ALBSERUM) 3.8 G/DL 3.5-5.0 BILITOT (test code = BILITOT) 1.1 MG/DL 0.2-1.3 BILIDIR (test code = BILIDIR) 0.8 MG/DL 0.0-0.4 H AST (test code = AST) 47 U/L 15-46 H PHOSALK (test code = PHOSALK) 641 U/L 38-126 H ALT (test code = ALT) 67 U/L 13-69 [id number] 13:26:00 Test Item Value Reference Range Interpretation Comments MG (test code = MG) 1.7 mg/dL 1.6-2.3 [id number] 13:26:00 Test Item Value Reference Range Interpretation Comments PHOSPHOR (test code = PHOSPHOR) 6.3 MG/DL 2.5-4.5 H BMP, BASIC METABOLIC [id number] 13:24:00 Test Item Value Reference Range Interpretation Comments SODIUM (test code = 110 MMOL/L 137-145 LL NA) K+ (test code = 5.2 MMOL/L 3.5-5.1 H PLEASE NOTE NEW KSERUM) REFERENCE RANGE (S) IN EFFECT EFFECTIVE 010 - NEW ANALYZER (V ITROS 5600) CHLORIDE (test code 71 MMOL/L 98-107 L = CL) CO2 (test code = 19 MMOL/L 22-30 L CO2) BUN (test code = 78 MG/DL 7-17 H BUN) CREA (test code = 2.09 MG/DL 0.7-1.2 H CREA) GLUCOSE (test code 258 MG/DL 70-99 H Fasting glucose = GLUCOSE) normal <100 MG/ DL- [employer] recommendation* * CALCIUM (test code 10.3 MG/DL 8.4-10.2 H = CABLOOD) GFR (test code = 26 A GFR of >9 0 GFR) mL/min/1.73m2 mL/min/1.73m2 is considered norm al. RESULTS VERIFIED.C'd TO called dr mason/Marco A5/sjOrlando GAS [id number] 11:35:00 Test Item Value Reference Range Interpretation Comments SITE (test code = SITE) LTFEMORAL SITE ALLENS (test code = ALLENS) NONE O2 EQUIP (test code = O2 EQUIP) ROOM AIR O2-DEVICE FIO2 (test code = FIO2) 21 % PH (test code = BGPH) 7.47 7.35-7.45 H PCO2 (test code = PCO2) 28 MMHG 34.0-45.0 L PO2 (test code = PO2) 94 MMHG 84-92 H HCO3 (test code = HCO3) 20.4 mmol/L 22.0-26.0 L BE (test code = BE) -1.6 mmol/L -2.0-2.0 THB (test code = THB) 17.2 G/DL 12-16 H % 02 HB (test code = ABGSAT) 94.4 % 96.0-100.0 L %COHB (test code = BGCO) 3.0 % <1.5 H % MET HB (test code = %MET HB) 1.2 % 0.4-1.5 CAO2 (test code = CAO2) 22.9 VOL% 15.7-21.6 H PF/RATIO (test code = PF/RATIO) 448.0 BG LAB ARTERIAL [id number] 11:35:00 Test Item Value Reference Range Interpretation Comments SITE (test code = SITE) LEFT FEMORAL SITE ALLENS (test code = ALLENS) NONE BGLAC (test code = BGLAC) 22.0 mg/dL 5.0-18.0 H [id number] 15:14:[address] [id number] IMAGING REPORTPatient Name: WAYNE KRAMER MDate of Service: [id number]: 51 Sex: F Order #: [id number] Room:[facility]: 1965 X-Ray Number: [id number] Record Number: [id number] Hospital Number: [id number] Physician: Eli ALEMAN Physician: Yenni ALEMAN shoulder 3 views 2:30 PMHistory: Fell with shoulder pain.Findings:There is no acute fracture or dislocation.There are no lytic or blastic bone lesions.There are no definite osseous erosions detected.There is no radiopaque foreign body or definite calcific soft tissue mass.Impression:Unremarkable study.Electronically Signed By: Arsalan Bailey M.D., 08/28/2016 3:11 PMLegally authenticated by FLOR ZAMUDIO 2016-08-28 15:11:59
[2019-12-21] MEDS ORDERED: ACETAMINOPHEN 500 MG TAB ONE (03:50)
[2019-12-21] MEDS ORDERED: ALBUTEROL 2.5 MG/3 ML NEB SOL ONE (03:50)
[2019-12-21] MEDS ORDERED: IPRATROPIUM BROM 0.5MG/2.5ML ONE (03:50)
[2019-12-21] MEDS ORDERED: predniSONE 20 MG TAB ONE (03:50)
--- NOTE | 2019-12-21 04:25 | EDPHYS ---
Physician Documentation [facility] Name: Coral Clark Age: 54 yrs Sex: Female : 1965 Arrival Date: 12/21/2019 Time: 03:00 Bed 6 Private MD: ED Physician Everton Wu HPI: 12/20 03:31 This 54 yrs old Female presents to ER via Ambulatory with complaints of Cough.mh7 03:31 The patient or guardian reports cough, that is intermittent, with productive sputum, mh7 that is white. Onset: The symptoms/episode began/occurred 1 month(s) ago. Severity of symptoms: At their worst the symptoms were moderate, 5 day(s) ago, in the emergency department the symptoms are unchanged. Modifying factors: The symptoms are alleviated by nothing, the symptoms are aggravated by nothing. Associated signs and symptoms: Pertinent positives: rhinorrhea, vomiting, after coughing, Pertinent negatives: chest pain, diarrhea, ear ache, fever, sore throat. The patient has experienced similar episodes in the past, several times. 03:31 Associated signs and symptoms: Pertinent positives: wheezing. mh7 Historical: - Allergies: 03:01 PENICILLINS; jb4 03:01 Toradol; jb4 - Home Meds: 03:01 None [Active]; jb4 - PMHx: 03:01 Cancer; COPD; jb4 - PSHx: 03:01 Ileostomy; Cholecystectomy; Hysterectomy; Appendectomy; jb4 - Immunization history:: Adult Immunizations up to date. - Social history:: Smoking status: Patient reports the use of cigarette tobacco products, smokes one pack cigarettes per day. Patient/guardian denies using alcohol, street drugs. ROS: 03:31 Constitutional: Negative for fever, chills, and weight loss, Eyes: Negative for injury, mh7 pain, redness, and discharge, ENT: Negative for injury, pain, and discharge, Neck: Negative for injury, pain, and swelling, Cardiovascular: Negative for chest pain, palpitations, and edema, Back: Negative for injury and pain, : Negative for injury, bleeding, discharge, and swelling, MS/Extremity: Negative for injury and deformity, Skin: Negative for injury, rash, and discoloration, Neuro: Negative for headache, weakness, numbness, tingling, and seizure, Psych: Negative for depression, anxiety, suicide ideation, homicidal ideation, and hallucinations, Allergy/Immunology: Negative for hives, rash, and allergies, Endocrine: Negative for neck swelling, polydipsia, polyuria, polyphagia, and marked weight changes, Hematologic/Lymphatic: Negative for swollen nodes, abnormal bleeding, and unusual bruising. Exam: 03:31 Constitutional: This is a well developed, well nourished patient who is awake, alert, mh7 and in no acute distress. Head/Face: Normocephalic, atraumatic. Eyes: Pupils equal round and reactive to light, extra-ocular motions intact. Lids and lashes normal. Conjunctiva and sclera are non-icteric and not injected. Cornea within normal limits. Periorbital areas with no swelling, redness, or edema. Neck: Trachea midline, no thyromegaly or masses palpated, and no cervical lymphadenopathy. Supple, full range of motion without nuchal rigidity, or vertebral point tenderness. No Meningismus. Chest/axilla: Normal chest wall appearance and motion. Nontender with no deformity. No lesions are appreciated. Cardiovascular: Regular rate and rhythm with a normal S1 and S2. No gallops, murmurs, or rubs. Normal PMI, no JVD. No pulse deficits. 03:31 Abdomen/GI: Soft, non-tender, with normal bowel sounds. No distension or tympany. No guarding or rebound. No evidence of tenderness throughout. Back: No spinal tenderness. No costovertebral tenderness. Full range of motion. Skin: Warm, dry with normal turgor. Normal color with no rashes, no lesions, and no evidence of cellulitis. MS/ Extremity: Pulses equal, no cyanosis. Neurovascular intact. Full, normal range of motion. Neuro: Awake and alert, GCS 15, oriented to person, place, time, and situation. Cranial nerves II-XII grossly intact. Motor strength 5/5 in all extremities. Sensory grossly intact. Cerebellar exam normal. Normal gait. Psych: Awake, alert, with orientation to person, place and time. Behavior, mood, and affect are within normal limits. 03:31 Respiratory: the patient does not display signs of respiratory distress, Respirations: prolonged exhalation, that is mild, Breath sounds: wheezing: that is mild, is heard diffusely, Respiratory rate: 16 Vital Signs: 03:01 BP 149 / 79; Pulse 97; Resp 16; Temp 98.4(O); Pulse Ox 95% on 3 lpm NC; Weight 86.18 kg jb4 (R); Height 5 ft. 7 in. (170.18 cm) (R); Pain 9/10; 04:30 BP 139 / 71; Pulse 94; Resp 16; Pulse Ox 94% on 3 lpm NC; jb4 03:01 Body Mass Index 29.76 (86.18 kg, 170.18 cm) [facility] MDM: 03:26 Patient medically screened. [facility] 04:22 Differential Diagnosis: Obstructed Airway Bronchitis Upper Respiratory Infection Asthma 7 Exacerbation Pneumonia Other COPD Exacerbation. Data reviewed: vital signs, nurses notes, old medical records, radiologic studies, plain films. Data interpreted: Pulse oximetry: on 3L(s) per nasal canula, Interpretation: acceptable. Counseling: I had a detailed discussion with the patient and/or guardian regarding: the historical points, exam findings, and any diagnostic results supporting the discharge/admit diagnosis, the presence of at least one elevated blood pressure reading (>120/80) during this emergency department visit, radiology results, the need for outpatient follow up, to return to the emergency department if symptoms worsen or persist or if there are any questions or concerns that arise at home. Response to treatment:. 05:49 Response to treatment: the patient's symptoms have resolved after treatment, the [facility] patient's blood pressure is in an acceptable range, mental status has returned to baseline, the patient no longer shows bradycardia, the patient is not short of breath, the patient is not tachycardic, the patient's pain is gone, the patient's temperature has normalized. 12/20 03:27 Order name: Chest Single View XRAY [facility] Administered Medications: 03:42 Drug: predniSONE 60 mg Route: PO; jb4 04:15 Follow up: Response: No adverse reaction; Marked relief of symptoms jb4 03:42 Drug: Tylenol 1000 mg Route: PO; jb4 04:15 Follow up: Response: No adverse reaction; Pain is decreased jb4 03:45 Drug: Albuterol - atroVENT (3:1) (2.5 mg - 0.5 mg) 3 ml Route: Nebulizer; jb4 04:15 Follow up: Response: No adverse reaction; Marked relief of symptoms; Wheezing diminishedjb4 Disposition: 12/21/19 04:24 Discharged to Home. Impression: COPD Exacerbation. - Condition is Stable. - Discharge Instructions: Chronic Obstructive Pulmonary Disease Exacerbation, Uxvo-gq-[id number]. - Prescriptions for Tessalon Perles 100 mg Oral Capsule - take 1 capsule by ORAL route every 8 hours As needed; 20 capsule. Prednisone 20 mg Oral Tablet - take 2 tablet by ORAL route once daily for 5 days; 10 tablet. Albuterol Sulfate 90 mcg/actuation - inhale 1-2 puff by INHALATION route every 4-6 hours; 1 Inhaler. - Medication Reconciliation Form, Thank You Letter, Antibiotic Education, Prescription Opioid Use form. - Follow up: Ray Meyer MD; When: 1 - 2 days; Reason: Worsening of condition, Recheck today's complaints. Follow up: Christiano Bingham MD; When: 1 - 2 days; Reason: Worsening of condition, Recheck today's complaints. - Problem is an acute exacerbation. - Symptoms have improved. Signatures: Dispatcher [employer] [facility] Norm Marquez RN RN jb4 Everton Wu MD MD mh7 Corrections: (The following items were deleted from the chart) 04:32 04:24 12/21/2019 04:24 Discharged to Home. Impression: COPD Exacerbation. Condition is jb4 Stable. Forms are Medication Reconciliation Form, Thank You Letter, Antibiotic Education, Prescription Opioid Use. Follow up: Ray Meyer; When: 1 - 2 days; Reason: Worsening of condition, Recheck today's complaints. Follow up: Christiano Bingham; When: 1 - 2 days; Reason: Worsening of condition, Recheck today's complaints. Problem is an acute exacerbation. Symptoms have improved. mh7
--- NOTE | 2019-12-21 04:25 | ER ---
Nurse's Notes [facility] Name: Coral Clark Age: 54 yrs Sex: Female : 1965 Arrival Date: 12/21/2019 Time: 03:00 Bed 6 Private MD: Diagnosis: COPD Exacerbation Presentation: 12/20 03:01 Chief complaint: Patient states: I have a cough that I have had for over a month. I jb4 feel short of breath. My stomach and ribs are hurting from coughing and vomiting. I cough and then I vomit afterwards. Pt reports home O2 at 3L continuous. Report coughing up phlem. 03:01 Coronavirus screen: Client denies travel out of the [place] in the last 14 days. Client rick presents with at least one sign or symptom that may indicate coronavirus-19. Standard/surgical mask placed on the client. Provider contacted for isolation considerations. Ebola Screen: No symptoms or risks identified at this time. Initial Sepsis Screen: Does the patient meet any 2 criteria? HR > 90 bpm. Yes Does the patient have a suspected source of infection? Yes: Acute abdominal pain. Risk Assessment: Do you want to hurt yourself or someone else? Patient reports no desire to harm self or others. Onset of symptoms was November 12, 2019. Transition of care: patient was not received from another setting of care. 03:01 Method Of Arrival: Ambulatory jb4 03:01 Acuity: ULISSES 3 jb4 Historical: - Allergies: 03:01 PENICILLINS; jb4 03:01 Toradol; jb4 - Home Meds: 03:01 None [Active]; jb4 - PMHx: 03:01 Cancer; COPD; jb4 - PSHx: 03:01 Ileostomy; Cholecystectomy; Hysterectomy; Appendectomy; jb4 - Immunization history:: Adult Immunizations up to date. - Social history:: Smoking status: Patient reports the use of cigarette tobacco products, smokes one pack cigarettes per day. Patient/guardian denies using alcohol, street drugs. Screenin:01 Abuse screen: Denies threats or abuse. Nutritional screening: No deficits noted. jb4 Tuberculosis screening: No symptoms or risk factors identified. Fall Risk None identified. Assessment: 03:01 General: Appears in no apparent distress. uncomfortable, Behavior is calm, cooperative, jb4 appropriate for age. Pain: Complains of pain in anterior aspect of right lateral abdomen, anterior aspect of left lateral abdomen and abdomen diffusely Pain does not radiate. Pain currently is 9 out of 10 on a pain scale. Quality of pain is described as pressure. Neuro: Level of Consciousness is awake, alert, obeys commands, Oriented to person, place, time, situation. Cardiovascular: Patient's skin is warm and dry. Respiratory: Reports cough that is productive, since 1 month ago Airway is patent Respiratory effort is even, unlabored, Respiratory pattern is regular, symmetrical, Breath sounds with wheezes bilaterally. GI: Reports vomiting. : No signs and/or symptoms were reported regarding the genitourinary system. EENT: No signs and/or symptoms were reported regarding the EENT system. Derm: Skin is intact, Skin is pink, warm \T\ dry. Musculoskeletal: Circulation, motion, and sensation intact. Range of motion:. Vital Signs: 03:01 BP 149 / 79; Pulse 97; Resp 16; Temp 98.4(O); Pulse Ox 95% on 3 lpm NC; Weight 86.18 kg jb4 (R); Height 5 ft. 7 in. (170.18 cm) (R); Pain 9/10; 04:30 BP 139 / 71; Pulse 94; Resp 16; Pulse Ox 94% on 3 lpm NC; jb4 03:01 Body Mass Index 29.76 (86.18 kg, 170.18 cm) jb4 ED Course: 03:00 Patient arrived in ED. ag3 03:01 Arm band placed on right wrist. jb4 03:01 Patient has correct armband on for positive identification. Call light in reach. Side jb4 rails up X 1. Pulse ox on. NIBP on. 03:03 Everton Wu MD is Attending Physician. mh7 03:18 Triage completed. jb4 03:35 Norm Marquez RN is Primary Nurse. jb4 03:47 Chest Single View XRAY In Process Unspecified. EDMS 04:23 Ray Meyer MD is Referral Physician. mh7 04:24 Christiano Bingham MD is Referral Physician. mh7 04:31 No provider procedures requiring assistance completed. Patient did not have IV access jb4 during this emergency room visit. Administered Medications: 03:42 Drug: predniSONE 60 mg Route: PO; jb4 04:15 Follow up: Response: No adverse reaction; Marked relief of symptoms jb4 03:42 Drug: Tylenol 1000 mg Route: PO; jb4 04:15 Follow up: Response: No adverse reaction; Pain is decreased jb4 03:45 Drug: Albuterol - atroVENT (3:1) (2.5 mg - 0.5 mg) 3 ml Route: Nebulizer; jb4 04:15 Follow up: Response: No adverse reaction; Marked relief of symptoms; Wheezing diminishedjb4 Outcome: 04:24 Discharge ordered by . liz 04:31 Discharged to home ambulatory. jb4 04:31 Condition: stable 04:31 Discharge instructions given to patient, Instructed on discharge instructions, follow up and referral plans. medication usage, Demonstrated understanding of instructions, follow-up care, medications, Prescriptions given X 3. 04:32 Patient left the ED. jb4 Signatures: Dispatcher [employer] EDNorm Levin RN RN jb4 Christine Harmon3 Everton Wu MD MD mh7
[2019-12-21 04:38] VITALS: TEMP 98.4
[2019-12-21 04:39] VITALS: BP 139/71; O2SAT 94
--- NOTE | 2019-12-23 10:41 | RAD REPORT ---
EXAM DESCRIPTION: RAD - Chest Single View - 12/21/2019 3:47 am CLINICAL HISTORY: Cough, shortness of breath COMPARISON: None. TECHNIQUE: Chest 1 View AP FINDINGS: Moderate bilateral lung hyperinflation. Mild symmetric bilateral lower lungs/chest density most likely represents overlying breast/chest wall attenuation artifact. No lung mass, consolidation, pulmonary edema, pleural effusion, or pneumothorax. No fracture. IMPRESSION: Moderate bilateral lung hyperinflation. This may represent emphysema or asthma. Electronically signed by: Shashi Ayala MD 12/21/2019 4:17 AM CDT Due to temporary technical issues with the PACS/Fluency reporting system, reports are being signed by the in house radiologist without review as a courtesy to ensure prompt reporting. The interpreting r adiologist is fully responsible for the content of the report.
== END 2019-12-21 04:32 | disposition home or self-care (01) ==
LOC: ER 02:58
DX: J44.1 Chronic obstructive pulmonary disease with (acute) exacerbation (principal); F17.210 Nicotine dependence, cigarettes, uncomplicated; Z88.0 Allergy status to penicillin; Z88.5 Allergy status to narcotic agent
CPT/HCPCS: 71045; 99284; J7512

== ENCOUNTER 2020-01-21 07:50 | Emergency (ER) | payer SELFPAY ==
--- OUTSIDE RECORDS SUMMARY | 2020-01-21 07:59 | XMS REPORT | Continuity of Care Document ---
:1965 Author Organization [facility] t Address [address] [place] [address] Care Team Providers Name Role Phone Unavailable [...] Report Text (test code = Report Text) [facility] 2017-07-11 1322 Report Text7 (test code = Report NORMAL RESPIRATORY TOÑO ISOLATED Text7) Report Text8 (test code = Report PRELIMINARY REPORT Text8) Report Text9 (test code = Report Text9) Report Text10 (test code = Report [facility] 2017-07-12 1328 Text10) Report Text11 (test code = Report STREP SCREEN NEGATIVE, CULTURE NE GATIVE Text11) FOR Report Text12 (test code = Report GROUP A STREP - FINAL REPORT. Text12) VQ SCAN (VENT/LUNG PERFUSION)2017-07-11 20:00:[address] [id number] IMAGING REPORTPatient Name: WAYNE KRAMER MDate of Service: [id number]: 52 Sex: F Order #: [id number] Room:ERSDOB: 1965 X-Ray Number: [id number] Record Number: [id number] Hospital Number: [id number] Physician: ANDREINA RANGELYEKying Physician: Renae RAPHAEL ventilation/perfusion study: 8:00 PMHistory: Shortness of breathCorrelation with chest radiographs series dated: 07/11/2017Dosage:10.1 mCi xenon-133 for ventilation.5.0 mCi technetium 99m MAA for perfusion.Findings:There are no ventilation/perfusion mismatches in a distribution to suggestpulmonary embolism.Impression:Low probability for pulmonary embolism.Electronically Signed By: Arsalan Bailey M.D., 07/11/20177:58 PMLegally authenticated by FLOR ZAMUDIO 2017-07-11 19:58:20D- DIMER, [id number] 17:59:00 Test Item Value Reference Range Interpretation Comments D-DIMER (test 0.88 ug/mL (FEU) 0.27-0.50 H VALUES OF QUANTITATIVE code = DDIMER) D-DIMER LESS THAN 0.4 UG/ML HAVE BEEN REPORTED TO BE ASSOCIATED WITH A LOW PROBABILITY OF DEEP VEIN THROMBOSIS/PULM ONARYEMB OLISM. THIS ALBERT T ALONE SHOULD NOT BE U SED TO RULE OUT DVT/PE . [id number] 17:58:00 Test Item Value Reference Range Interpretation [...] glucose = GLUCOSE) normal <100 MG/ DL- [employer] recommendation* * CALCIUM (test [...] GFR) mL/min/1.73m2 mL/min/1.73m2 is considered norm al. [id number] 17:46:00 Test Item Value Reference Range Interpretation [...] H UAMICRO (test code = UAMICRO) NO [id number] 17:46:00 Test Item Value Reference Range Interpretation [...] 1.2-7.2 H = NEUT) CHEST XR 2 [id number] 17:44:[place] [id number] IMAGING REPORTPatient Name: WAYNE KRAMER MDate of Service: 17-11-5829Njc: 52 Sex: F Order #: [id number] Room:[facility]: 1965 X-Ray Number: [id number] Record Number: [id number] Hospital Number: [id number] Physician: ANDREINA RANGELYEOrdering Physician: Lennie RAPHAEL 2 views 5:30 PMHISTORY: Fever, cough, shortness of breath, bronchitis.Comparisons: 07/10/2017FINDINGS:Heart size is normal.There is no focal lung consolidation.There is no definite pleural effusion or pneumothorax identified.There is emphysema present.There are old healed rib fracture deformities bilaterally.There is osteoporosis.IMPRESSION:No acute cardiopulmonary process.Electronically Signed By: Arsalan Bailey M.D., 5:42 PMLegally authenticated by FLOR ZAMUDIO 2017-07-11 17:42:39CHEST XR 2 [id number] 07:19:[address] [id number] IMAGING REPORTPatient Name: WAYNE KRAMER MDate of Service: [id number]: 52 Sex: F Order #: [id number] Room:[facility]: 1965 X-Ray Number: [id number] Record Number: [id number] Hospital Number: [id number] Physician: Eli ALEMAN Physician: Lennie RAPHAEL 2 views 12:15 AMComparisons: 06/02/2017HISTORY: Cough.FINDINGS:Heart size is normal.There is no focal lung consolidation.There is no definite pleural effusion or pneumothorax identified.Hyperinflation suggests COPD.IMPRESSION:No acute cardiopulmonary process.EMERGENT INTERPRETATION PROVIDED BY [facility] SERVICE.Electronically Signed By: Arsalan Bailey M.D., 07/10/2017 7:17 AMLegally authenticated by FLOR ZAMUDIO 2017-07-10 07:17:03GROUP A STREP [id number] 00:19:00 Test Item Value Reference Range Interpretation Comments GROUP A STREP SCREEN NEGATIVE NEGATIVE Cultu re set up to (test code = STREPGRA) confi rm negative Strep Screen STREP A INTERNAL POS PASS PASS CNTRL (test code = STRPAIPC) STREP A LOT # (test [id number] code = STRPALOT) STREP A EXPIRATION DATE 11-04-2019 (test code = STRPAEXP) Culture set up to confirm negative Strep ScreenWHOLE BLOOD [id number] 16:49:00 Test Item Value Reference Range Interpretation Comments WHOLE BLOOD GLUCOSE 125 mg/dL 70-99 H Fastin g glucose (test code = POC GLU) normal <100 MG/DL- [employer] recommend ation WHOLE BLOOD [id number] 11:46:00 Test Item Value Reference Range Interpretation Comments WHOLE BLOOD GLUCOSE 159 mg/dL 70-99 H Fastin g glucose (test code = POC GLU) normal <100 MG/DL- [employer] recommend ation WHOLE BLOOD [id number] 07:11:00 Test Item Value Reference Range Interpretation Comments WHOLE BLOOD GLUCOSE 87 mg/dL 70-99 Fastin g glucose (test code = POC GLU) normal <100 MG/DL- [employer] recommendation* * WHOLE BLOOD [id number] 21:30:00 Test Item Value Reference Range Interpretation Comments WHOLE BLOOD GLUCOSE 199 mg/dL 70-99 H Fastin g glucose (test code = POC GLU) normal <100 MG/DL- [employer] recommend ation WHOLE BLOOD [id number] 21:27:00 Test Item Value Reference Range Interpretation Comments WHOLE BLOOD GLUCOSE 195 mg/dL 70-99 H Fastin g glucose (test code = POC GLU) normal <100 MG/DL- [employer] recommend ation WHOLE BLOOD [id number] 21:22:00 Test Item Value Reference Range Interpretation Comments WHOLE BLOOD GLUCOSE 124 mg/dL 70-99 H Fastin g glucose (test code = POC GLU) normal <100 MG/DL- [employer] recommend ation WHOLE BLOOD [id number] 12:08:00 Test Item Value Reference Range Interpretation Comments WHOLE BLOOD GLUCOSE 79 mg/dL 70-99 Fastin g glucose (test code = POC GLU) normal <100 MG/DL- [employer] recommendation* * WHOLE BLOOD [id number] 22:20:00 Test Item Value Reference Range Interpretation Comments WHOLE BLOOD GLUCOSE 222 mg/dL 70-99 H Fastin g glucose (test code = POC GLU) normal <100 MG/DL- [employer] recommend ation WHOLE BLOOD [id number] 11:25:00 Test Item Value Reference Range Interpretation Comments WHOLE BLOOD GLUCOSE 193 mg/dL 70-99 H Fastin g glucose (test code = POC GLU) normal <100 MG/DL- [employer] recommend ation WHOLE BLOOD [id number] 11:24:00 Test Item Value Reference Range Interpretation Comments WHOLE BLOOD GLUCOSE 89 mg/dL 70-99 Fastin g glucose (test code = POC GLU) normal <100 MG/DL- [employer] recommendation* * WHOLE BLOOD [id number] 19:31:00 Test Item Value Reference Range Interpretation Comments WHOLE BLOOD GLUCOSE 211 mg/dL 70-99 H Fastin g glucose (test code = POC GLU) normal <100 MG/DL- [employer] recommend ation WHOLE BLOOD [id number] 11:46:00 Test Item Value Reference Range Interpretation Comments WHOLE BLOOD GLUCOSE 167 mg/dL 70-99 H Fastin g glucose (test code = POC GLU) normal <100 MG/DL- [employer] recommend ation BMP, BASIC METABOLIC [id number] 08:24:00 Test Item Value Reference Range Interpretation [...] glucose = GLUCOSE) normal <100 MG/ DL- [employer] recommendation* * CALCIUM (test code 7.7 MG/DL 8.4-10.2 L = CABLOOD) GFR (test code = 61 A GFR of >9 0 GFR) mL/min/1.73m2 mL/min/1.73m2 is considered norm al. WHOLE BLOOD [id number] 08:12:00 Test Item Value Reference Range Interpretation Comments WHOLE BLOOD GLUCOSE 113 mg/dL 70-99 H Fastin g glucose (test code = POC GLU) normal <100 MG/DL- [employer] recommend ation [id number] 07:49:00 Test Item Value Reference Range Interpretation [...] 4.7 K/UL 1.2-7.2 = NEUT) WHOLE BLOOD [id number] 22:31:00 Test Item Value Reference Range Interpretation Comments WHOLE BLOOD GLUCOSE 242 mg/dL 70-99 H Fastin g glucose (test code = POC GLU) normal <100 MG/DL- [employer] recommend ation WHOLE BLOOD [id number] 20:08:00 Test Item Value Reference Range Interpretation Comments WHOLE BLOOD GLUCOSE 112 mg/dL 70-99 H Fastin g glucose (test code = POC GLU) normal <100 MG/DL- [employer] recommend ation WHOLE BLOOD [id number] 18:53:00 Test Item Value Reference Range Interpretation Comments WHOLE BLOOD GLUCOSE 324 mg/dL 70-99 H Fastin g glucose (test code = POC GLU) normal <100 MG/DL- [employer] recommend ation WHOLE BLOOD [id number] 18:15:00 Test Item Value Reference Range Interpretation Comments WHOLE BLOOD GLUCOSE 136 mg/dL 70-99 H Fastin g glucose (test code = POC GLU) normal <100 MG/DL- [employer] recommend ation CT THORAX W/O [id number] 16:53:[address] [id number] IMAGING REPORTPatient Name: WAYNE KRAMER MDate of Service: [id number]: 52 Sex: F Order #: [id number] Room: [address] [place], [place] [address]OB: 1965 X-Ray Number: [id number] Record Number: [id number] Hospital Number: [id number] Physician: MS MATTHEWONTHIOrdering Physician: SHAAN FERRARO-SURGERYCT of [...] PMLegally authenticated by FLOR ZAMUDIO 2017-06-09 16:51:10CULTURE, [id number] 12:39:00 Test Item Value Reference Range Interpretation [...] code = Report Text13) Report Text14 (test [facility] 2017-06-09 1239 code = Report Text14) Report Text15 (test NO ANAEROBIC GROWTH code = Report OBSERVED Text15) Report Text16 (test FINAL REPORT code = Report Text16) WHOLE BLOOD [id number] 11:03:00 Test Item Value Reference Range Interpretation Comments WHOLE BLOOD GLUCOSE 229 mg/dL 70-99 H Fastin g glucose (test code = POC GLU) normal <100 MG/DL- [employer] recommend ation VANCOMYCIN [id number] 09:48:00 Test Item Value Reference Range Interpretation Comments VANCTROU (test code = 15 UG/ML 10-20 In [place] rare cases VANCTROU) heterophile ant ibodies may interfere w ith reagent causing erroneously low results. Any Vancomycin level result that is inconsistent wi th the clinical presen tation should be confi rmed with an alternate te st method. WHOLE BLOOD [id number] 08:14:00 Test Item Value Reference Range Interpretation Comments WHOLE BLOOD GLUCOSE 108 mg/dL 70-99 H Fastin g glucose (test code = POC GLU) normal <100 MG/DL- [employer] recommend ation WHOLE BLOOD [id number] 08:08:00 Test Item Value Reference Range Interpretation Comments WHOLE BLOOD GLUCOSE 169 mg/dL 70-99 H Fastin g glucose (test code = POC GLU) normal <100 MG/DL- [employer] recommend ation WHOLE BLOOD [id number] 18:36:00 Test Item Value Reference Range Interpretation Comments WHOLE BLOOD GLUCOSE 220 mg/dL 70-99 H Fastin g glucose (test code = POC GLU) normal <100 MG/DL- [employer] recommend ation WHOLE BLOOD [id number] 11:48:00 Test Item Value Reference Range Interpretation Comments WHOLE BLOOD GLUCOSE 184 mg/dL 70-99 H Fastin g glucose (test code = POC GLU) normal <100 MG/DL- [employer] recommend ation WHOLE BLOOD [id number] 11:46:00 Test Item Value Reference Range Interpretation Comments WHOLE BLOOD GLUCOSE 107 mg/dL 70-99 H Fastin g glucose (test code = POC GLU) normal <100 MG/DL- [employer] recommend ation WHOLE BLOOD [id number] 11:42:00 Test Item Value Reference Range Interpretation Comments WHOLE BLOOD GLUCOSE 249 mg/dL 70-99 H Fastin g glucose (test code = POC GLU) normal <100 MG/DL- [employer] recommend ation WHOLE BLOOD [id number] 11:41:00 Test Item Value Reference Range Interpretation Comments WHOLE BLOOD GLUCOSE 152 mg/dL 70-99 H Fastin g glucose (test code = POC GLU) normal <100 MG/DL- [employer] recommend ation BMP, BASIC METABOLIC [id number] 08:44:00 Test Item Value Reference Range Interpretation [...] glucose = GLUCOSE) normal <100 MG/ DL- [employer] recommendation* * CALCIUM (test code 8.7 MG/DL 8.4-10.2 = CABLOOD) GFR (test code = 61 A GFR of >9 0 GFR) mL/min/1.73m2 mL/min/1.73m2 is considered norm al. [id number] 08:26:00 Test Item Value Reference Range Interpretation [...] K/UL 1.2-7.2 H = NEUT) WHOLE BLOOD [id number] 16:11:00 Test Item Value Reference Range Interpretation Comments WHOLE BLOOD GLUCOSE 145 mg/dL 70-99 H Fastin g glucose (test code = POC GLU) normal <100 MG/DL- [employer] recommend ation CULTURE, [id number] 12:04:00 Test Item Value Reference Range Interpretation Comments CULTABSC (test code = CULTABSC) CULTABSC (test code = [id number]) [facility] 2017-06-06 902 MRSA ISOLATED IN ABSCESS CULTURE; CONTACT PRECAUTIONS INDICATED FOR INPATIENTS CALLED TO/READ BACK BY:Nohelia BONDS CALLED INFECTION PREVENTION @9:02 [facility] 2017-06-06 903 ID AND/OR SENSITIVITY TO FOLLOW PRELIMINARY REPORT WHOLE BLOOD [id number] 10:56:00 Test Item Value Reference Range Interpretation Comments WHOLE BLOOD GLUCOSE 139 mg/dL 70-99 H Fastin g glucose (test code = POC GLU) normal <100 MG/DL- [employer] recommend ation BMP, BASIC METABOLIC [id number] 10:16:00 Test Item Value Reference Range Interpretation [...] glucose = GLUCOSE) normal <100 MG/ DL- [employer] recommendation* * CALCIUM (test code 9.1 MG/DL 8.4-10.2 = CABLOOD) GFR (test code = 55 A GFR of >9 0 GFR) mL/min/1.73m2 mL/min/1.73m2 is considered norm al. [id number] 09:51:00 Test Item Value Reference Range Interpretation [...] 15.5 K/UL 1.2-7.2 H = NEUT) VANCOMYCIN [id number] 09:27:00 Test Item Value Reference Range Interpretation Comments VANCTROU (test code = 17 UG/ML 10-20 In [place] rare cases VANCTROU) heterophile ant ibodies may interfere w ith reagent causing erroneously low results. Any Vancomycin level result that is inconsistent wi th the clinical presen tation should be confi rmed with an alternate te st method. BLOOD [id number] 07:08:00 Test Item Value Reference Range Interpretation Comments Report Text (test LOT 2017-06-021039 code = Report Text) Report Text7 (test BLOOD CULTURES HELD FOR code = Report 5 DAYS BEFORE FINAL Text7) Report Text8 (test code = Report Text8) Report Text9 (test [employer] code = Report MICROBIOLOGY SUGGESTS [...] code = Report Text20) Report Text21 (test [facility] 2017-06-04 934 code = Report Text21) Report [...] FINAL REPORT code = Report Text31) BLOOD [id number] 07:08:00 Test Item Value Reference Range Interpretation Comments Report Text (test LOT 2017-06-02 1040 code = Report Text) Report Text7 (test BLOOD CULTURES HELD FOR code = Report 5 DAYS BEFORE FINAL Text7) Report Text8 (test code = Report Text8) Report Text9 (test [employer] code = Report MICROBIOLOGY SUGGESTS [...] REPORT code = Report Text31) WHOLE BLOOD [id number] 22:16:00 Test Item Value Reference Range Interpretation Comments WHOLE BLOOD GLUCOSE 285 mg/dL 70-99 H Fastin g glucose (test code = POC GLU) normal <100 MG/DL- [employer] recommend ation WHOLE BLOOD [id number] 16:31:00 Test Item Value Reference Range Interpretation Comments WHOLE BLOOD GLUCOSE 144 mg/dL 70-99 H Fastin g glucose (test code = POC GLU) normal <100 MG/DL- [employer] recommend ation WHOLE BLOOD [id number] 11:18:00 Test Item Value Reference Range Interpretation Comments WHOLE BLOOD GLUCOSE 170 mg/dL 70-99 H Fastin g glucose (test code = POC GLU) normal <100 MG/DL- [employer] recommend ation WHOLE BLOOD [id number] 07:51:00 Test Item Value Reference Range Interpretation Comments WHOLE BLOOD GLUCOSE 101 mg/dL 70-99 H Fastin g glucose (test code = POC GLU) normal <100 MG/DL- [employer] recommend ation WHOLE BLOOD [id number] 20:41:00 Test Item Value Reference Range Interpretation Comments WHOLE BLOOD GLUCOSE 173 mg/dL 70-99 H Fastin g glucose (test code = POC GLU) normal <100 MG/DL- [employer] recommend ation WHOLE BLOOD [id number] 17:30:00 Test Item Value Reference Range Interpretation Comments WHOLE BLOOD GLUCOSE 220 mg/dL 70-99 H Fastin g glucose (test code = POC GLU) normal <100 MG/DL- [employer] recommend ation GRAM [id number] 12:24:00 Test Item Value Reference Range Interpretation Comments Report Text (test code [facility] 2017-06-05 1224 = Report Text) Report Text7 [...] confirmation re sults will follow. WHOLE BLOOD [id number] 09:34:00 Test Item Value Reference Range Interpretation Comments WHOLE BLOOD GLUCOSE 87 mg/dL 70-99 Fastin g glucose (test code = POC GLU) normal <100 MG/DL- [employer] recommendation* * BMP, BASIC METABOLIC [id number] 08:56:00 Test Item Value Reference Range Interpretation [...] glucose = GLUCOSE) normal <100 MG/ DL- [employer] recommendation* * CALCIUM (test code 9.1 MG/DL 8.4-10.2 = CABLOOD) GFR (test code = 55 A GFR of >9 0 GFR) mL/min/1.73m2 mL/min/1.73m2 is considered norm al. [id number] 08:36:00 Test Item Value Reference Range Interpretation [...] K/UL 1.2-7.2 H = NEUT) WHOLE BLOOD [id number] 08:02:00 Test Item Value Reference Range Interpretation Comments WHOLE BLOOD GLUCOSE 105 mg/dL 70-99 H Fastin g glucose (test code = POC GLU) normal <100 MG/DL- [employer] recommend ation WHOLE BLOOD [id number] 21:32:00 Test Item Value Reference Range Interpretation Comments WHOLE BLOOD GLUCOSE 141 mg/dL 70-99 H Fastin g glucose (test code = POC GLU) normal <100 MG/DL- [employer] recommend ation WHOLE BLOOD [id number] 21:01:00 Test Item Value Reference Range Interpretation Comments WHOLE BLOOD GLUCOSE 135 mg/dL 70-99 H Fastin g glucose (test code = POC GLU) normal <100 MG/DL- [employer] recommend ation [id number] 15:44:00 Test Item Value Reference Range Interpretation [...] IG) 0.6 % 0-1 CT HEAD W/O [id number] 12:52:[address] [id number] IMAGING REPORTPatient Name: WAYNE KRAMER MDate of Service: [id number]: 52 Sex: F Order #: [id number] Room: [address] [place], [place] [address]OB: 1965 X-Ray Number: [id number] Record Number: [id number] Hospital Number: [id number] Physician: ALPHONSO DOSHI POrdering Physician: SHAAN FERRARO-SURGERYHead [...] OLIVER PATIENTS IS < 7 % HBA1C. [employer] DIABETES [employer] 2002;25:S33-S49 [id number] 12:20:00 Test Item Value Reference Range Interpretation [...] glucose = GLUCOSE) normal <100 MG/ DL- [employer] recommendation* * CALCIUM (test [...] mL/min/1.73m2 is considered norm al. WHOLE BLOOD [id number] 11:31:00 Test Item Value Reference Range Interpretation Comments WHOLE BLOOD GLUCOSE 183 mg/dL 70-99 H Fastin g glucose (test code = POC GLU) normal <100 MG/DL- [employer] recommend ation BMP, BASIC METABOLIC [id number] 09:14:00 Test Item Value Reference Range Interpretation [...] glucose = GLUCOSE) normal <100 MG/ DL- [employer] recommendation* * CALCIUM (test code 9.4 MG/DL 8.4-10.2 = CABLOOD) GFR (test code = 55 A GFR of >9 0 GFR) mL/min/1.73m2 mL/min/1.73m2 is considered norm al. VANCOMYCIN [id number] 09:14:00 Test Item Value Reference Range Interpretation Comments VANCTROU (test code = 13 UG/ML 10-20 In [place] rare cases VANCTROU) heterophile ant ibodies may interfere w ith reagent causing erroneously low results. Any Vancomycin level result that is inconsistent wi th the clinical presen tation should be confi rmed with an alternate te st method. [id number] 08:38:00 Test Item Value Reference Range Interpretation [...] K/UL 1.2-7.2 H = NEUT) WHOLE BLOOD [id number] 07:51:00 Test Item Value Reference Range Interpretation Comments WHOLE BLOOD GLUCOSE 90 mg/dL 70-99 Fastin g glucose (test code = POC GLU) normal <100 MG/DL- [employer] recommendation* * WHOLE BLOOD [id number] 05:23:00 Test Item Value Reference Range Interpretation Comments WHOLE BLOOD GLUCOSE 142 mg/dL 70-99 H Fastin g glucose (test code = POC GLU) normal <100 MG/DL- [employer] recommend ation WHOLE BLOOD [id number] 05:21:00 Test Item Value Reference Range Interpretation Comments WHOLE BLOOD GLUCOSE 199 mg/dL 70-99 H Fastin g glucose (test code = POC GLU) normal <100 MG/DL- [employer] recommend ation BMP, BASIC METABOLIC [id number] 22:30:00 Test Item Value Reference Range Interpretation [...] glucose = GLUCOSE) normal <100 MG/ DL- [employer] recommendation* * CALCIUM (test code 9.4 MG/DL 8.4-10.2 = CABLOOD) GFR (test code = 45 A GFR of >9 0 GFR) mL/min/1.73m2 mL/min/1.73m2 is considered norm al. [id number] 22:07:00 Test Item Value Reference Range Interpretation [...] K/UL 1.2-7.2 H = NEUT) WHOLE BLOOD [id number] 21:44:00 Test Item Value Reference Range Interpretation Comments WHOLE BLOOD GLUCOSE 152 mg/dL 70-99 H Fastin g glucose (test code = POC GLU) normal <100 MG/DL- [employer] recommend ation ULTRASOUND [id number] 20:26:[address] [id number] IMAGING REPORTPatient Name: WAYNE KRAMER MDate of Service: [id number]: 52 Sex: F Order #: [id number] Room: [address] [place], [place] [address]OB: 1965 X-Ray Number: [id number] Record Number: [id number] Hospital Number: [id number] Physician: ALPHONSO DOSHI POrdering Physician: SHAAN FERRARO-SURGERYULTRASOUND [...] code = POC GLU) normal <100 MG/DL- [employer] recommend ation [id number] 10:13:00[place] [id number] IMAGING REPORTPatient Name: WAYNE KRAMER MDate of Service: 22-12-3574Ati: 52 Sex: F Order #: [id number] Room:ERSDOB: 1965 X-Ray Number: [id number] Record Number: [id number] Hospital Number: [id number] Physician: NADRIA ROSEOrdershen Physician: DANILO BERKOWITZ 2 views 10:00 [...] authenticated by TOÑO 2017-06-02 10:11:34CHEST XR 2 [id number] 09:34:00BAR[place] [id number] IMAGING REPORTPat ient Name: WAYNE KRAMER of Service: [id number]: 52 Sex: F Order #: [id number] Room:ERSDOB: 1965 X-Ray Number: [id number] Record Number: [id number] Hospital Number: [id number] Physician: ANDRIA ROSEOrdershen Physician: DANILO BERKOWITZ 2 views 9:00 AMCOMPARISON: 05/13/2017HISTORY: Arm pain.FINDINGS:Heart size is normal.There is no focal lung consolidation.Thereis no definite pleural effusion or pneumothorax identified.Mild hyperinflation could relate to COPD.There are old healed bilateral rib fracture deformities.IMPRESSION:No acute cardiopulmonary process.Electronically Signed By: Arsalan Bailey M.D., 06/02/2017 9:31 AMLegally authenticated by FLOR [id number] 09:31:[id number] 09:29:00 Test Item Value Reference Range Interpretation [...] glucose = GLUCOSE) normal <100 MG/ DL- [employer] recommendation* * CALCIUM (test [...] RESULTS VERIFIED.C'd TO Karen MORRISRN/ER @ 0925 06/02/17--[id number] 08:58:00 Test Item Value Reference Range Interpretation [...] 12.7 K/UL 1.2-7.2 H = NEUT) BLOOD [id number] 07:16:00 Test Item Value Reference Range Interpretation Comments Report Text (test [facility] 2017-05-131415 code = Report Text) Report Text7 (test BLOOD CULTURES HELD FOR code = Report 5 DAYS BEFORE FINAL Text7) Report Text8 (test code = Report Text8) Report Text9 (test [employer] code = Report MICROBIOLOGY SUGGESTS THAT Text9) Report Text10 (test MOST CASES OF BACTEREMIA code = Report ARE DETECTED BY USING Text10) Report Text11 (test THREE SETS OF SEPARATELY code = Report COLLECTED BLOOD CULTURES. Text11) Report Text12 (test [facility] 2017-05-131416 code = Report Text12) [...] code = Report Text17) Report Text18 (test [facility] 2017-05-13 1418 code = Report Text18) Report Text19 (test COLLECTION SITE code = Report UNSPECIFIED Text19) Report Text20 (test [facility] 2017-05-14 1342 code = Report Text20) Report Text21 (test NO GROWTH WITHIN 1 DAY code = Report Text21) Report Text22 (test PRELIMINARY REPORT code = Report Text22) Report Text23 (test code = Report Text23) Report Text24 (test [facility] 2017-05-15 653 code = Report Text24) Report Text25 (test NO GROWTH WITHIN 2 DAYS code = Report Text25) Report Text26 (test PRELIMINARY REPORT code = Report Text26) Report Text27 (test code = Report Text27) Report Text28 (test [facility] 2017-05-18 716 code = Report Text28) Report Text29 (test NO GROWTH WITHIN 5 DAYS code = Report Text29) Report Text30 (test FINAL REPORT code = Report Text30) BLOOD [id number] 07:16:00 Test Item Value Reference Range Interpretation Comments Report Text (test [facility] 2017-05-13 1228 code = Report Text) Report Text7 (test BLOOD CULTURES HELD FOR code = Report 5 DAYS BEFORE FINAL Text7) Report Text8 (test code = Report Text8) Report Text9 (test [employer] code = Report MICROBIOLOGY SUGGESTS THAT Text9) Report Text10 (test MOST CASES OF BACTEREMIA code = Report ARE DETECTED BY USING Text10) Report Text11 (test THREE SETS OF SEPARATELY code = Report COLLECTED BLOOD CULTURES. Text11) Report Text12 (test [facility] 2017-05-13 1229 code = Report [...] code = Report Text17) Report Text18 (test [facility] 2017-05-13 1230 code = Report Text18) Report Text19 (test COLLECTION SITE code = Report UNSPECIFIED Text19) Report Text20 (test [facility] 2017-05-14 1342 code = Report Text20) Report Text21 (test NO GROWTH WITHIN 1 DAY code = Report Text21) Report Text22 (test PRELIMINARY REPORT code = Report Text22) Report Text23 (test code = Report Text23) Report Text24 (test [facility] 2017-05-15 653 code = Report Text24) Report Text25 (test NO GROWTH WITHIN 2 DAYS code = Report Text25) Report Text26 (test PRELIMINARY REPORT code = Report Text26) Report Text27 (test code = Report Text27) Report Text28 (test [facility] 2017-05-18 716 code = Report Text28) Report Text29 (test NO GROWTH WITHIN 5 DAYS code = Report Text29) Report Text30 (test FINAL REPORT code = Report Text30) WHOLE BLOOD [id number] 09:57:00 Test Item Value Reference Range Interpretation Comments WHOLE BLOOD GLUCOSE 251 mg/dL 70-99 H Fastin g glucose (test code = POC GLU) normal <100 MG/DL- [employer] recommend ation WHOLE BLOOD [id number] 08:19:00 Test Item Value Reference Range Interpretation Comments WHOLE BLOOD GLUCOSE 211 mg/dL 70-99 H Fastin g glucose (test code = POC GLU) normal <100 MG/DL- [employer] recommend ation BMP, BASIC METABOLIC [id number] 04:57:00 Test Item Value Reference Range Interpretation [...] glucose = GLUCOSE) normal <100 MG/ DL- [employer] recommendation* * CALCIUM (test code 8.8 MG/DL 8.4-10.2 = CABLOOD) GFR (test code = 55 A GFR of >9 0 GFR) mL/min/1.73m2 mL/min/1.73m2 is considered norm al. [id number] 04:33:00 Test Item Value Reference Range Interpretation [...] K/UL 1.2-7.2 H = NEUT) WHOLE BLOOD [id number] 20:36:00 Test Item Value Reference Range Interpretation Comments WHOLE BLOOD GLUCOSE 163 mg/dL 70-99 H Fastin g glucose (test code = POC GLU) normal <100 MG/DL- [employer] recommend ation [id number] 14:43:00 Test Item Value Reference Range Interpretation [...] code = UAMICRO) NO BG LAB VENOUS [id number] 14:35:00 Test Item Value Reference Range Interpretation Comments SITE (test code = SITE) VENOUS SITE BGLACVEN (test code = BGLACVEN) 26.0 mg/dL 6.0-18.[address] ABDOMEN/PELVIS [id number] 14:34:[address] [id number] IMAGING REPORTPatient Name: WAYNE KRAMER MDate of Service: [id number]: 52 Sex: F Order #: [id number] Room: [facility]: 1965 X-Ray Number: [id number] Record Number: [id number] Hospital Number:[id number] Physician: JESUS MASON TANOrdering Physician: JESUS MASON [...] No acutebony abnormalities are seen. There is zavp-ip-ghuryyba aortoiliacatherosclerotic disease.The gallbladder has been removed. A [...] authenticated by LAST NGUYEN 2017-05-13 14:32:01THYROID STIMULATION [id number] 14:19:00 Test Item Value Reference Range Interpretation Comments TSH (test code = TSH) 1.17 UIU/ML 0.465-4.68 [id number] 14:18:00 Test Item Value Reference Range Interpretation [...] 1.2-7.2 H = NEUT) TROPONIN I - [id number] 13:37:00 Test Item Value Reference Range Interpretation Comments TROP-I (test code 0.026 ng/ml 0.012-0.033 = TROP-I) INTERPRETIVE DA TA A TROPONIN OF LES S THAN 0.034 NG/ML IS CONSIDERED NEGATIVE A TROP ONIN OF 0.034 - 0.119 N G/ML IS CONSIDERED HITCHCOCK ZONE A TROPONIN =/> 0. 120 NG/ML IS CONSIDERED P OSITIVE CHEST 1 VIEW [id number] 13:30:[address] [id number] IMAGING REPORTPatient Name: WAYNE KRAMER MDate of Service: [id number]: 52 Sex: F Order #: [id number] Room: [facility]: 1965 X-Ray Number: [id number] Record Number: [id number] Hospital Number:[id number] Physician: JESUS MASONOrdering Physician: JESUS MASON one [...] PMLegally authenticated by LAST NGUYEN 2017-05-13 13:28:37LIVER [id number] 13:26:00 Test Item Value Reference Range Interpretation [...] (test code = ALT) 67 U/L 13-69 [id number] 13:26:00 Test Item Value Reference Range Interpretation Comments MG (test code = MG) 1.7 mg/dL 1.6-2.3 [id number] 13:26:00 Test Item Value Reference Range Interpretation Comments PHOSPHOR (test code = PHOSPHOR) 6.3 MG/DL 2.5-4.5 H BMP, BASIC METABOLIC [id number] 13:24:00 Test Item Value Reference Range Interpretation [...] glucose = GLUCOSE) normal <100 MG/ DL- [employer] recommendation* * CALCIUM (test code 10.3 MG/DL 8.4-10.2 H = CABLOOD) GFR (test code = 26 A GFR of >9 0 GFR) mL/min/1.73m2 mL/min/1.73m2 is considered norm al. RESULTS VERIFIED.C'd TO called dr mason/Marco A5/sjOrlando GAS [id number] 11:35:00 Test Item Value Reference Range Interpretation [...] code = PF/RATIO) 448.0 BG LAB ARTERIAL [id number] 11:35:00 Test Item Value Reference Range Interpretation Comments SITE (test code = SITE) LEFT FEMORAL SITE ALLENS (test code = ALLENS) NONE BGLAC (test code = BGLAC) 22.0 mg/dL 5.0-18.0 H [id number] 15:14:[address] [id number] IMAGING REPORTPatient Name: WAYNE KRAMER MDate of Service: [id number]: 51 Sex: F Order #: [id number] Room:[facility]: 1965 X-Ray Number: [id number] Record Number: [id number] Hospital Number: [id number] Physician: Eli ALEMAN Physician: Yenni ALEMAN shoulder [...]
[2020-01-21] MEDS ORDERED: LEVALBUTEROL 1.25 MG/3 ML NEB ONE (08:48)
[2020-01-21] MEDS ORDERED: HYDROCORTISONE SUC 100 MG INJ ONE (08:48)
[2020-01-21] MEDS ORDERED: IPRATROPIUM BROM 0.5MG/2.5ML ONE (08:48)
[2020-01-21] MEDS ORDERED: FAMOTIDINE 20 MG/2 ML VIAL IV ONE (08:48)
[2020-01-21] MEDS ORDERED: Levofloxacin500mg IV 500 MG/100 ML BAG IV ONE (08:48)
[2020-01-21] MEDS ORDERED: NA CHLORIDE 0.9% 1,000 ML ONE ×4 (08:48→10:57)
[2020-01-21 08:50] LABS: Absolute Lymphocytes (CBC) 1.9 K/uL (0.7-4.9); Basophils % 0.3 % (0-1.3); Hematocrit 41.9 % (36.0-45.0); Lymphocytes % 12.2 % (15.3-44.8); MPV 11.1 fL (7.6-11.3); RBC Red Blood Cell Count 3.29 M/uL (3.86-4.86)
--- NOTE | 2020-01-21 09:01 | RAD REPORT ---
EXAM DESCRIPTION: CT - Chest Abd Pelvis Wo Con - 01/21/2020 8:46 am CLINICAL HISTORY: Chest and abdomen pain. Dyspnea;Abdominal distention COMPARISON: No comparisons TECHNIQUE: A limited noncontrast study was performed. All CT scans are performed using dose optimization technique as appropriate and may include automated exposure control or mA/KV adjustment according to patient size. FINDINGS: The lungs are mildly emphysematous but clear.No pleural or pericardial effusion.No intrath oracic adenopathy. Diffuse fatty liver is present. Cholecystectomy clips. The spleen, pancreas, adrenal glands kidneys a re within normal limits. No bowel obstruction, free air, free fluid or abscess. Appendectomy. Right lower quadrant ostomy site is noted with colectomy. No pathologic lymphadenopathy in the abdomen or pelvis. No worrisome osseous finding. IMPRESSION: No acute abnormality is detected.
[2020-01-21 09:04] LABS: Protime INR 3.97
[2020-01-21 09:13] LABS: Blood Morphology Comment NOTED (NOT SEEN); Macrocytosis 3+; Platelet Estimate DECR; Toxic Granulation PRESENT
[2020-01-21 09:14] LABS: Hypochromasia 1+
[2020-01-21] MEDS ORDERED: ONDANSETRON 4 MG (ODT) TAB ONE (09:33)
--- NOTE | 2020-01-21 09:49 | ER ---
Nurse's Notes [facility] Name: Coral Clark Age: 54 yrs Sex: Female : 1965 Arrival Date: 01/21/2020 Time: 07:51 Bed 5 Private MD: Diagnosis: Acute and subacute hepatic failure without coma-tylenol overdose, unintentional;Severe sepsis with septic shock;Abdominal tenderness;Chronic obstructive pulmonary disease, unspecified;Type 1 diabetes mellitus;Coagulation defect, unspecified;Vomiting;Acute kidney failure;Acute pancreatitis;Elevated white blood cell count;Bandemia Presentation: 01/20 08:04 Chief complaint: Patient states: SOB x 1 month, worse today, hx of COPD, on oxygen at ph 3L at home, smokes 1 PPD, also c/o cough and headache, reports vomiting after coughing episodes, denies fever. Coronavirus screen: Client denies travel out of the [place] in the last 14 days. cough unrelated to allergies, difficulty breathing, headache, nausea, shortness of breath, vomiting. Client presents with at least one sign or symptom that may indicate coronavirus-19. Standard/surgical mask placed on the client. Provider contacted for isolation considerations. Ebola Screen: No symptoms or risks identified at this time. Initial Sepsis Screen: Does the patient meet any 2 criteria? RR > 20 per min. HR > 90 bpm. Does the patient have a suspected source of infection? Yes: Productive cough/pneumonia. Risk Assessment: Do you want to hurt yourself or someone else? Patient reports desire/thoughts of hurting themselves or someone else. Provider notified. Onset of symptoms was January 21, 2020. 08:04 Method Of Arrival: Wheelchair ph 08:04 Acuity: ULISSES 2 ph Historical: - Allergies: 08:12 PENICILLINS; ph 08:12 Toradol; ph - PMHx: 08:12 Cancer; COPD; Diabetes - IDDM; Hypertension; ph - PSHx: 08:12 Ileostomy; Cholecystectomy; Hysterectomy; Appendectomy; ph - Immunization history:: Adult Immunizations unknown. - Social history:: Smoking status: Patient reports the use of cigarette tobacco products, smokes one pack cigarettes per day. Screenin:15 Abuse screen: Denies threats or abuse. Denies injuries from another. Nutritional ph screening: No deficits noted. Tuberculosis screening: No symptoms or risk factors identified. Fall Risk None identified. Assessment: 08:11 Reassessment: Code sepsis called overhead. ph 08:12 General: Appears in no apparent distress. uncomfortable, Behavior is calm, cooperative, ph appropriate for age, Denies fever. Pain: Complains of pain in abdomen and head. Neuro: Level of Consciousness is awake, alert, obeys commands, Oriented to person, place, time, situation. Cardiovascular: Capillary refill < 3 seconds in bilateral fingers Patient's skin is warm and dry. Respiratory: Reports shortness of breath at rest cough that is non-productive, labored breathing Airway is patent Respiratory effort is even, labored, Respiratory pattern is tachypnea. GI: Abdomen is round Ileostomy site is clean and dry. Ostomy appliance is intact. Reports upper abdominal pain, nausea, vomiting. Derm: Skin is intact, Skin is pink, warm \\T\\ dry. Musculoskeletal: Circulation, motion, and sensation intact. Range of motion: intact in all extremities. 09:26 Reassessment: CRITICAL VALUE LAC 22.1, RELAYED TO RN AND MD. bp 10:31 Reassessment: Patient appears in no apparent distress at this time. Patient and/or ph family updated on plan of care and expected duration. Pain level reassessed. Pt awake but drowsy, remains tachypneic, reports that nausea and pain have improved. 12:30 Reassessment: Patient appears in no apparent distress at this time. Patient and/or ph family updated on plan of care and expected duration. Pain level reassessed. 13:06 Reassessment: Patient appears in no apparent distress at this time. Patient and/or ph family updated on plan of care and expected duration. Pain level reassessed. Pt awake but remains drowsy, work of breathing has improved, respirations decreased to 20, awaiting transfer. 17:05 Reassessment: Attempted to call report to [facility], placed on hold approx 5 minutes, transfer center states, " They aren't answering for us so let me give you the direct number to the unit. Just let it ring and they will eventually answer.". 17:09 Reassessment: Attempted to call report to direct line, , busy signal, [facility] at bedside. 17:15 Reassessment: Report given to [facility], pt being prepared for transfer. ph 17:17 Reassessment: Attempted to call report to direct number, rang one time then busy ph signal. Called transfer center who was again unable to reach nurse for report. Charge nurse Milka notified of delay giving report, instructed to call back and ask to speak to hide house supervisor. 17:23 Reassessment: Called transfer center and asked to speak to charge nurse, transferred to unknown person who states, " What unit is the person supposed to be going to?" Informed that pt was assigned to [address] [place] [address] #3, then states, " Oh, well this is the wrong unit let me transfer you." Transferred to receiving unit, phone rang approx 5 minutes, answered by someone whom I told that I needed to give report on said pt, placed on hold again for approx 5 minutes. 17:30 Reassessment: [facility] left facility w/ pt. ph 17:54 Reassessment: Nurse from [facility] called for report, report given to Gi COLIN. ph Vital Signs: 08:04 BP 101 / 54; Pulse 94; Resp 30; Pulse Ox 100% on 3 lpm NC; Weight 108.86 kg; ph 10:03 BP 86 / 48; Pulse 83; Resp 26; Temp 96.5; Pulse Ox 100% on 3 lpm NC; ph 10:32 BP 81 / 50; Pulse 81; Resp 26; Pulse Ox 100% on 2 lpm NC; ph 10:40 BP 71 / 42; Pulse 81; ph 10:45 BP 62 / 36; Pulse 83; ph 10:54 BP 81 / 49; Pulse 82; Resp 18; Pulse Ox 100% on 3 lpm NC; ph 11:36 BP 99 / 52; Pulse 92; Resp 24; Pulse Ox 100% on 3 lpm NC; ph 11:45 BP 92 / 77; Pulse 111; Resp 24; Pulse Ox 100% on 3 lpm NC; ph 12:20 BP 144 / 82; Pulse 101; Resp 22; Pulse Ox 100% on 3 lpm NC; ph 12:50 BP 129 / 86; Pulse 93; Resp 24; Temp 97.0; Pulse Ox 100% on 3 lpm NC; ph 13:36 BP 93 / 50; Pulse 85; Resp 22; Pulse Ox 100% on 3 lpm NC; ph 14:00 BP 104 / 52; Pulse 87; Resp 16; Pulse Ox 99% on 3 lpm NC; ph 14:33 BP 90 / 55; Pulse 83; Resp 18; Pulse Ox 98% on 3 lpm NC; ph 15:07 BP 97 / 56; Pulse 87; Resp 18; Pulse Ox 99% on 3 lpm NC; ph 15:30 BP 100 / 53; Pulse 83; Resp 20; Pulse Ox 100% on 2 lpm NC; ph 16:00 BP 99 / 51; Pulse 84; Resp 22; Pulse Ox 98% on NC; ph 16:30 BP 71 / 47; Pulse 90; Resp 22; Pulse Ox 97% on 3 lpm NC; ph 17:01 BP 124 / 81; Pulse 84; Resp 22; Temp 97.1; Pulse Ox 99% on 3 lpm NC; ph ED Course: 07:51 Patient arrived in ED. ag5 07:57 Loreto Ta, RN is Primary Nurse. ph 08:08 Cuco Jimenez MD is Attending Physician. jose g 08:10 Triage completed. ph 08:12 Arm band placed on Patient placed in an exam room, on a stretcher, on oxygen, on ph school lunch monitor, on pulse oximetry. EKG completed in triage. Results shown to MD. 08:15 Patient has correct armband on for positive identification. Placed in gown. Bed in low ph position. Call light in reach. Side rails up X2. teletypesetter monitor on. Pulse ox on. NIBP on. Door closed. Noise minimized. 08:47 CT Chest Abdomen Pelvis W/O Contrast In Process Unspecified. EDMS 09:25 Assisted provider with central line placement. Set up central line tray. Triple lumen ph line placed in right femoral. Line placed by Cuco Jimenez MD Placement verified by blood return, Dressed with Tape, Tegaderm, Blood was collected. Patient tolerated well. Before procedure, did Practitioner(s) obtain informed consent? Yes. Patient \\T\\ family education about procedure, CLABSI prevention and S/S of infection? Yes. Time-out/Briefing performed prior to start of procedure? Yes. Was handwashing/sanitizing done immediately prior to procedure? Yes. Was patient positioned to in a way to prevent air embolism? Yes. Was procedure site sterilized? Yes, with chlorhexidine. Was the site allowed to dry? Yes. Was local anesthetic and/or sedation utilized? Yes. During the procedure, did the Practitioner(s) maintain a sterile field? Yes. Were unused ports clamped during insertion? Yes. Was a 2nd qualified MD obtained after 3 unsuccessful insertion attempts? No. Was blood aspirated from each lumen? Yes. After the procedure, did the Practitioner(s) clean the site and apply a sterile dressing? Yes. 09:47 Justin Guillen DO is Hospitalizing Provider. jose g 10:18 XRAY Chest (1 view) In Process Unspecified. EDMS 10:19 PLACED A 16FR CATHETHER \\T\\1020. kj1 11:37 Patient transferred, IV remains in place. ph Administered Medications: Discontinued: Dopamine drip 5 mcg/kg/min - (DOPamine 400 mg, D5W 250 ml) IV at calculated rate continuous; Titrate to keep systolic blood pressure greater than 90mmHg Discontinued: Lactated Ringers Solution 1000 ml IV at 150 ml/hr continuous 09:25 Drug: Ondansetron (Zofran) 4 mg Route: PO; ph 11:44 Follow up: Response: No adverse reaction ph 09:30 Drug: Solu-CORTEF 100 mg Route: IVP; Site: right femoral; ph 09:32 Drug: Pepcid 20 mg Route: IVP; Site: right femoral; ph 11:44 Follow up: Response: No adverse reaction ph 09:35 Drug: NS 0.9% 1000 ml Route: IV; Rate: 1 bolus; Site: right femoral; ph 11:39 Follow up: Response: No adverse reaction; IV Status: Completed infusion; IV Intake: ph 1000ml 09:35 Drug: levofloxacin 500 mg Volume: 100 ml; Route: IVPB; Infused Over: 60 mins; Site: ph right femoral; 10:45 Follow up: Response: No adverse reaction; IV Status: Completed infusion ph 10:00 Drug: NS 0.9% 1000 ml Route: IV; Rate: 1 bolus; Site: right femoral; ph 11:42 Follow up: Response: No adverse reaction; IV Status: Completed infusion; IV Intake: ph 1000ml 10:00 Drug: NS 0.9% 1000 ml Route: IV; Rate: 1 bolus; Site: right femoral; ph 11:42 Follow up: Response: No adverse reaction; IV Intake: 1000ml ph 11:44 Follow up: Response: No adverse reaction; IV Status: Completed infusion ph 10:00 Drug: fentaNYL (PF) 25 mcg Route: IVP; Site: right femoral; ph 11:42 Follow up: Response: No adverse reaction; Pain is decreased ph 10:07 Not Given (Duplicate Order): NS 0.9% 1000 ml IV at 125 ml/hr continuous jose g 10:29 Drug: Sodium Bicarbonate 1 amp Route: IVP; Site: right femoral; ph 11:43 Follow up: Response: No adverse reaction ph 10:29 Drug: Sodium Bicarbonate 1 amp Route: IVP; Site: right femoral; ph 11:42 Follow up: Response: No adverse reaction ph 10:53 Drug: Flagyl 500 mg Volume: 100 ml; Route: IVPB; Rate: 200 ml/hr; Infused Over: 30 ph mins; Site: right femoral; 10:54 Drug: Dopamine drip 5 mcg/kg/min - (DOPamine 400 mg, D5W 250 ml) Route: IV; Rate: ph calculated rate; Site: right femoral; 12:35 Follow up: Response: No adverse reaction; IV Status: Order to discontinue infusion ph 11:04 Not Given (Duplicate Order): Insulin Drip - (Insulin Regular Human 100 units, NS 0.9% jose g 100 ml) IV at 7 units/hr continuous; Standard concentration 1unit/ml; Dose for DKA is 0.1 units/kg/hr 11:33 Drug: Lactated Ringers Solution 1000 ml Route: IV; Rate: 150 ml/hr; Site: right femoral;ph 11:45 Follow up: IV Status: Infusion continued upon transfer ph 12:35 Follow up: Response: No adverse reaction; IV Status: Order to discontinue infusion ph 11:33 Drug: ProTONIX 40 mg Route: IVP; Site: right femoral; ph 11:41 Follow up: Response: No adverse reaction ph 11:34 Drug: Lactulose 30 grams Volume: 45 ml; Route: PO; ph 11:41 Follow up: Response: No adverse reaction ph 11:39 Not Given (Physician Discretion): Xopenex 1.25 mg Inhalation once ph 11:41 Not Given (Physician Discretion): AtroVENT Aerosol 0.5 mg Inhalation once ph 12:10 Drug: Sodium Bicarbonate 1 amp Route: IVP; Site: right femoral; ph 12:25 Drug: Vitamin K1 10 mg Route: Sub-Q; Site: right lower abdomen; ph 12:45 Drug: fentaNYL (PF) 25 mcg Route: IVP; Site: right femoral; ph 12:48 Drug: Acetadote 150 mg/kg Route: IV; Rate: per protocol; Site: right femoral; ph 14:02 Follow up: IV Status: Completed infusion aa5 12:48 Drug: D5W 1000 ml, Sodium Bicarbonate 150 mEq Route: IV; Rate: 100 ml/hr; Site: right ph femoral; 12:49 Drug: Levophed (4 mg/250 mL D5W 4 mcg/min Route: IV; Rate: calculated rate; Site: right ph femoral; 14:02 Drug: Acetadote 50 mg/kg Route: IV; Rate: per protocol; Site: right femoral; aa5 15:08 Drug: fentaNYL (PF) 25 mcg Route: IVP; Site: right femoral; ph 17:00 Drug: AtroVENT Aerosol 0.5 mg Route: Inhalation; ph 17:00 Drug: NS 0.9% 500 ml Route: IV; Rate: bolus; Site: right femoral; ph 17:01 Drug: Xopenex 1.25 mg Route: Inhalation; ph Intake: 11:39 IV: 1000ml; Total: 1000ml. ph 11:42 IV: 1000ml; Total: 2000ml. ph 11:42 IV: 1000ml; Total: 3000ml. ph Outcome: 09:49 Decision to Hospitalize by Provider. jose g 11:11 ER care complete, transfer ordered by . jose g 17:55 Patient left the ED. ph Signatures: Dispatcher [employer] EDNM Cuco Jimenez MD MD cha Calderon, Audri, RN RN aa5 Hall, Patricia, RN RN ph Peltier, Brian, RN RN bp Gaskin, Ajare 5 Nora Melo kj1
--- NOTE | 2020-01-21 09:50 | EDPHYS ---
Physician Documentation [facility] Name: Coral Clark Age: 54 yrs Sex: Female : 1965 Arrival Date: 01/21/2020 Time: 07:51 Bed 5 Private MD: Cuco Martell HPI: 01/20 09:40 This 54 yrs old Female presents to ER via Wheelchair with complaints of jose g Shortness Of Breath, Nausea. 09:40 The patient has shortness of breath at rest. Onset: The symptoms/episode began/occurred jose g 3 day(s) ago. Historical: - Allergies: 08:12 PENICILLINS; ph 08:12 Toradol; ph - PMHx: 08:12 Cancer; COPD; Diabetes - IDDM; Hypertension; ph - PSHx: 08:12 Ileostomy; Cholecystectomy; Hysterectomy; Appendectomy; ph - Immunization history:: Adult Immunizations unknown. - Social history:: Smoking status: Patient reports the use of cigarette tobacco products, smokes one pack cigarettes per day. ROS: 09:41 Constitutional: Negative for fever, chills, and weight loss, Eyes: Negative for injury, jose g pain, redness, and discharge, ENT: Negative for injury, pain, and discharge, Neck: Negative for injury, pain, and swelling, Back: Negative for injury and pain, : Negative for injury, bleeding, discharge, and swelling, MS/Extremity: Negative for injury and deformity, Skin: Negative for injury, rash, and discoloration, Psych: Negative for depression, anxiety, suicide ideation, homicidal ideation, and hallucinations, Allergy/Immunology: Negative for hives, rash, and allergies, Endocrine: Negative for neck swelling, polydipsia, polyuria, polyphagia, and marked weight changes, Hematologic/Lymphatic: Negative for swollen nodes, abnormal bleeding, and unusual bruising. 09:41 Cardiovascular: Positive for chest pain, with cough. 09:41 Respiratory: Positive for cough, shortness of breath, at rest. 09:41 Abdomen/GI: Positive for abdominal pain, nausea and vomiting, abdominal cramps. Exam: 09:41 Constitutional: This is a well developed, well nourished patient who is awake, alert, jose g and in no acute distress. Head/Face: Normocephalic, atraumatic. Eyes: Pupils equal round and reactive to light, extra-ocular motions intact. Lids and lashes normal. Conjunctiva and sclera are non-icteric and not injected. Cornea within normal limits. Periorbital areas with no swelling, redness, or edema. ENT: Nares patent. No nasal discharge, no septal abnormalities noted. Tympanic membranes are normal and external auditory canals are clear. Oropharynx with no redness, swelling, or masses, exudates, or evidence of obstruction, uvula midline. Mucous membranes moist. Neck: Trachea midline, no thyromegaly or masses palpated, and no cervical lymphadenopathy. Supple, full range of motion without nuchal rigidity, or vertebral point tenderness. No Meningismus. Chest/axilla: Normal chest wall appearance and motion. Nontender with no deformity. No lesions are appreciated. Back: No spinal tenderness. No costovertebral tenderness. Full range of motion. Female : Normal external genitalia. MS/ Extremity: Pulses equal, no cyanosis. Neurovascular intact. Full, normal range of motion. Neuro: Awake and alert, GCS 15, oriented to person, place, time, and situation. Cranial nerves II-XII grossly intact. Motor strength 5/5 in all extremities. Sensory grossly intact. Cerebellar exam normal. Normal gait. Psych: Awake, alert, with orientation to person, place and time. Behavior, mood, and affect are within normal limits. 09:41 Cardiovascular: Rate: tachycardic, Rhythm: regular, Pulses: Pulses are 4+ in bilateral radial, brachial, femoral, popliteal, posterior tibial and and dorsalis pedis arteries.. 09:41 ECG was reviewed by the Attending Physician. 09:45 Respiratory: mild respiratory distress is noted, Respirations: labored breathing, that jose g is mild, Breath sounds: bronchial sounds, that are mild, are scattered, Respiratory rate: 30 09:45 Abdomen/GI: Inspection: distension, Bowel sounds: normal, Palpation: moderate abdominal tenderness, in the right upper quadrant and left upper quadrant, Liver: no appreciated palpable abnormalities, Hernia: not appreciated. Vital Signs: 08:04 BP 101 / 54; Pulse 94; Resp 30; Pulse Ox 100% on 3 lpm NC; Weight 108.86 kg; ph 10:03 BP 86 / 48; Pulse 83; Resp 26; Temp 96.5; Pulse Ox 100% on 3 lpm NC; ph 10:32 BP 81 / 50; Pulse 81; Resp 26; Pulse Ox 100% on 2 lpm NC; ph 10:40 BP 71 / 42; Pulse 81; ph 10:45 BP 62 / 36; Pulse 83; ph 10:54 BP 81 / 49; Pulse 82; Resp 18; Pulse Ox 100% on 3 lpm NC; ph 11:36 BP 99 / 52; Pulse 92; Resp 24; Pulse Ox 100% on 3 lpm NC; ph 11:45 BP 92 / 77; Pulse 111; Resp 24; Pulse Ox 100% on 3 lpm NC; ph 12:20 BP 144 / 82; Pulse 101; Resp 22; Pulse Ox 100% on 3 lpm NC; ph 12:50 BP 129 / 86; Pulse 93; Resp 24; Temp 97.0; Pulse Ox 100% on 3 lpm NC; ph 13:36 BP 93 / 50; Pulse 85; Resp 22; Pulse Ox 100% on 3 lpm NC; ph 14:00 BP 104 / 52; Pulse 87; Resp 16; Pulse Ox 99% on 3 lpm NC; ph 14:33 BP 90 / 55; Pulse 83; Resp 18; Pulse Ox 98% on 3 lpm NC; ph 15:07 BP 97 / 56; Pulse 87; Resp 18; Pulse Ox 99% on 3 lpm NC; ph 15:30 BP 100 / 53; Pulse 83; Resp 20; Pulse Ox 100% on 2 lpm NC; ph 16:00 BP 99 / 51; Pulse 84; Resp 22; Pulse Ox 98% on NC; ph 16:30 BP 71 / 47; Pulse 90; Resp 22; Pulse Ox 97% on 3 lpm NC; ph 17:01 BP 124 / 81; Pulse 84; Resp 22; Temp 97.1; Pulse Ox 99% on 3 lpm NC; ph Procedures: 09:52 Central Line: the site was prepped with Betadine, in sterile fashion, a triple lumen jose g catheter was inserted, in the right femoral vein, in 1 attempts. placement was verified, by blood return, the site was dressed with using sterile technique, the patient tolerated the procedure, well. MDM: 08:08 Patient medically screened. jose g 09:50 Differential diagnosis: Anemia Anxiety Reaction Myocardial Infarction pulmonary edema, jose g Pulmonary Embolism reactive airway disease, Sepsis bowel obstruction, diverticulitis, GI Bleed, Irritable bowel syndrome, pancreatitis, Peptic Ulcer Disease, Pyelonephritis, urinary tract infection. Antibiotic administration: levofloxacin and flagyl. Differential Diagnosis altered mental status, sepsis. The patient's [place] Deep Vein Thrombosis Score was calculated as follows: Total Score: 0-2 Pts- Low Risk. The patient's pulmonary embolism risk score was calculated as follows: No Risks (0 Pts). Immunization status: Influenza vaccine: Data reviewed: vital signs, nurses notes, lab test result(s), EKG, radiologic studies, CT scan, plain films. Data interpreted: monitoring engineer: rate is 93 beats/min, rhythm is regular, Pulse oximetry: on room air is 91 %. Test interpretation: by ED physician or midlevel provider: ECG, plain radiologic studies. 01/20 08:16 Order name: Basic Metabolic Panel [facility] 01/20 08:16 Order name: CBC with Diff [facility] 01/20 08:16 Order name: LFT's [facility] 01/20 08:16 Order name: Magnesium [facility] 01/20 08:16 Order name: NT PRO-BNP [facility] 01/20 08:16 Order name: PT-INR; Complete Time: 09:34 [facility] 01/20 08:16 Order name: Troponin (emerg Dept Use Only); Complete Time: 10:56 [facility] 01/20 08:16 Order name: Blood Culture Adult (2) [facility] 01/20 08:16 Order name: Urine Culture [facility] 01/20 08:16 Order name: Lactate; Complete Time: 09:34 [facility] 01/20 08:16 Order name: Procalcitonin; Complete Time: 11:46 [facility] 01/20 08:16 Order name: ABG [facility] 01/20 08:16 Order name: Flu; Complete Time: 12:15 [facility] 01/20 08:17 Order name: Basic Metabolic Panel; Complete Time: 10:56 [facility] 01/20 08:17 Order name: CBC with Automated Diff; Complete Time: 09:34 [facility] 01/20 08:18 Order name: Liver (Hepatic) Function; Complete Time: 10:56 [facility] 01/20 08:18 Order name: Magnesium; Complete Time: 10:56 [facility] 01/20 08:18 Order name: NT PRO-BNP; Complete Time: 10:56 [facility] 01/20 08:53 Order name: Manual Differential; Complete Time: 09:34 [facility] 01/20 09:36 Order name: AMMONIA; Complete Time: 10:56 [facility] 01/20 09:46 Order name: Glucose, Ancillary Testing; Complete Time: 09:53 [facility] 01/20 10:52 Order name: UDS; Complete Time: 13:44 [facility] 01/20 10:52 Order name: Acetaminophen; Complete Time: 12:15 em 01/20 10:52 Order name: ASA; Complete Time: 16:36 [facility] 01/20 10:58 Order name: Lipase; Complete Time: 11:46 [facility] 01/20 11:37 Order name: ABG; Complete Time: 13:44 [facility] 01/20 12:19 Order name: SARS-COV-2 RT PCR; Complete Time: 13:44 [facility] 01/20 12:36 Order name: Lactate Sepsis 2 HR Follow-up; Complete Time: 13:44 [facility] 01/20 12:44 Order name: Urine Dipstick--Ancillary (enter results); Complete Time: 13:44 [facility] 01/20 08:16 Order name: XRAY Chest (1 view); Complete Time: 10:56 [facility] 01/20 08:16 Order name: CT Chest Abdomen Pelvis W/O Contrast; Complete Time: 09:34 [facility] 01/20 16:44 Order name: ABG [facility] 01/20 08:16 Order name: EKG; Complete Time: 08:18 [facility] 01/20 08:16 Order name: Cardiac monitoring; Complete Time: 09:42 [facility] 01/20 08:16 Order name: EKG - Nurse/Tech; Complete Time: 09:42 [facility] 01/20 08:16 Order name: IV Saline Lock; Complete Time: 09:42 [facility] 01/20 08:16 Order name: Labs collected and sent; Complete Time: 09:42 [facility] 01/20 08:16 Order name: O2 Per Protocol; Complete Time: 09:43 [facility] 01/20 08:16 Order name: O2 Sat Monitoring; Complete Time: 09:43 [facility] 01/20 08:16 Order name: Urine Dipstick-Ancillary (obtain specimen); Complete Time: 14:39 [facility] 01/20 09:01 Order name: Labs - recollect needed: Procalcitonin Chem; Complete Time: 09:44 em1 EC:41 Rate is 85 beats/min. Rhythm is regular. QRS [place] is Normal. NV interval is normal. QRS jose g interval is normal. QT interval is normal. No Q waves. T waves are Normal. T waves are Inverted in lead III. No ST changes noted. Clinical impression: NSR w/ Non-specific ST/T Changes. Interpreted by me. Reviewed by me. Administered Medications: Discontinued: Dopamine drip 5 mcg/kg/min - (DOPamine 400 mg, D5W 250 ml) IV at calculated rate continuous; Titrate to keep systolic blood pressure greater than 90mmHg Discontinued: Lactated Ringers Solution 1000 ml IV at 150 ml/hr continuous 09:25 Drug: Ondansetron (Zofran) 4 mg Route: PO; ph 11:44 Follow up: Response: No adverse reaction ph 09:30 Drug: Solu-CORTEF 100 mg Route: IVP; Site: right femoral; ph 09:32 Drug: Pepcid 20 mg Route: IVP; Site: right femoral; ph 11:44 Follow up: Response: No adverse reaction ph 09:35 Drug: NS 0.9% 1000 ml Route: IV; Rate: 1 bolus; Site: right femoral; ph 11:39 Follow up: Response: No adverse reaction; IV Status: Completed infusion; IV Intake: ph 1000ml 09:35 Drug: levofloxacin 500 mg Volume: 100 ml; Route: IVPB; Infused Over: 60 mins; Site: ph right femoral; 10:45 Follow up: Response: No adverse reaction; IV Status: Completed infusion ph 10:00 Drug: NS 0.9% 1000 ml Route: IV; Rate: 1 bolus; Site: right femoral; ph 11:42 Follow up: Response: No adverse reaction; IV Status: Completed infusion; IV Intake: ph 1000ml 10:00 Drug: NS 0.9% 1000 ml Route: IV; Rate: 1 bolus; Site: right femoral; ph 11:42 Follow up: Response: No adverse reaction; IV Intake: 1000ml ph 11:44 Follow up: Response: No adverse reaction; IV Status: Completed infusion ph 10:00 Drug: fentaNYL (PF) 25 mcg Route: IVP; Site: right femoral; ph 11:42 Follow up: Response: No adverse reaction; Pain is decreased ph 10:07 Not Given (Duplicate Order): NS 0.9% 1000 ml IV at 125 ml/hr continuous jose g 10:29 Drug: Sodium Bicarbonate 1 amp Route: IVP; Site: right femoral; ph 11:43 Follow up: Response: No adverse reaction ph 10:29 Drug: Sodium Bicarbonate 1 amp Route: IVP; Site: right femoral; ph 11:42 Follow up: Response: No adverse reaction ph 10:53 Drug: Flagyl 500 mg Volume: 100 ml; Route: IVPB; Rate: 200 ml/hr; Infused Over: 30 ph mins; Site: right femoral; 10:54 Drug: Dopamine drip 5 mcg/kg/min - (DOPamine 400 mg, D5W 250 ml) Route: IV; Rate: ph calculated rate; Site: right femoral; 12:35 Follow up: Response: No adverse reaction; IV Status: Order to discontinue infusion ph 11:04 Not Given (Duplicate Order): Insulin Drip - (Insulin Regular Human 100 units, NS 0.9% jose g 100 ml) IV at 7 units/hr continuous; Standard concentration 1unit/ml; Dose for DKA is 0.1 units/kg/hr 11:33 Drug: Lactated Ringers Solution 1000 ml Route: IV; Rate: 150 ml/hr; Site: right femoral;ph 11:45 Follow up: IV Status: Infusion continued upon transfer ph 12:35 Follow up: Response: No adverse reaction; IV Status: Order to discontinue infusion ph 11:33 Drug: ProTONIX 40 mg Route: IVP; Site: right femoral; ph 11:41 Follow up: Response: No adverse reaction ph 11:34 Drug: Lactulose 30 grams Volume: 45 ml; Route: PO; ph 11:41 Follow up: Response: No adverse reaction ph 11:39 Not Given (Physician Discretion): Xopenex 1.25 mg Inhalation once ph 11:41 Not Given (Physician Discretion): AtroVENT Aerosol 0.5 mg Inhalation once ph 12:10 Drug: Sodium Bicarbonate 1 amp Route: IVP; Site: right femoral; ph 12:25 Drug: Vitamin K1 10 mg Route: Sub-Q; Site: right lower abdomen; ph 12:45 Drug: fentaNYL (PF) 25 mcg Route: IVP; Site: right femoral; ph 12:48 Drug: Acetadote 150 mg/kg Route: IV; Rate: per protocol; Site: right femoral; ph 14:02 Follow up: IV Status: Completed infusion aa5 12:48 Drug: D5W 1000 ml, Sodium Bicarbonate 150 mEq Route: IV; Rate: 100 ml/hr; Site: right ph femoral; 12:49 Drug: Levophed (4 mg/250 mL D5W 4 mcg/min Route: IV; Rate: calculated rate; Site: right ph femoral; 14:02 Drug: Acetadote 50 mg/kg Route: IV; Rate: per protocol; Site: right femoral; aa5 15:08 Drug: fentaNYL (PF) 25 mcg Route: IVP; Site: right femoral; ph 17:00 Drug: AtroVENT Aerosol 0.5 mg Route: Inhalation; ph 17:00 Drug: NS 0.9% 500 ml Route: IV; Rate: bolus; Site: right femoral; ph 17:01 Drug: Xopenex 1.25 mg Route: Inhalation; ph Disposition: 09:52 Critical Care:. jose g Disposition: 01/21/20 11:11 Transfer ordered to [facility]. Diagnosis are Acute and subacute hepatic failure without coma - tylenol overdose, unintentional, Severe sepsis with septic shock, Abdominal tenderness, Chronic obstructive pulmonary disease, unspecified, Type 1 diabetes mellitus, Coagulation defect, unspecified, Vomiting, Acute kidney failure, Acute pancreatitis, Elevated white blood cell count, Bandemia. - Reason for transfer: Higher level of care. - Accepting physician is to [facility] , icu. - Condition is Critical. - Problem is new. - Symptoms have improved. Critical care time excluding procedures: :52 Critical care time: Bedside Care: 40 minutes, Consultation: 10 minutes, Family jose g Intervention: 10 minutes. Total time: 60 minutes Signatures: Dispatcher [employer] EDCuco Avaols MD MD cha Martinez, Eric em1 Milka Simpson RN RN aa5 Loreto Ta RN RN ph Corrections: (The following items were deleted from the chart) 09:49 09:49 Hospitalization Ordered by Justin Guillen DO for Inpatient Admission. Preliminary jose g diagnosis is Diabetes mellitus due to underlying condition with ketoacidosis without coma; Chronic obstructive pulmonary disease with (acute) exacerbation; Abdominal tenderness; Elevated white blood cell count; Bandemia; Type 1 diabetes mellitus. Bed requested for Telemetry/MedSurg (Inpatient). Status is Inpatient Admission. Condition is Serious. Problem is new. Symptoms have improved. jose g 10:08 09:49 01/21/2020 09:49 Hospitalization Ordered by Justin Guillen DO for Inpatient jose g Admission. Preliminary diagnosis is Diabetes mellitus due to underlying condition with ketoacidosis without coma; Chronic obstructive pulmonary disease with (acute) exacerbation; Abdominal tenderness; Elevated white blood cell count; Bandemia; Type 1 diabetes mellitus. Bed requested for Intensive Care Unit. Status is Inpatient Admission. Condition is Serious. Problem is new. Symptoms have improved. [facility] 11:03 10:08 01/21/2020 09:49 Hospitalization Ordered by Justin Guillen DO for Inpatient jose g Admission. Preliminary diagnosis is Diabetes mellitus due to underlying condition with ketoacidosis without coma; Chronic obstructive pulmonary disease with (acute) exacerbation; Abdominal tenderness; Elevated white blood cell count; Bandemia; Type 1 diabetes mellitus; Severe sepsis with septic shock; Hypotension; Acidosis - severe metabolic. Bed requested for Intensive Care Unit. Status is Inpatient Admission. Condition is Serious. Problem is new. Symptoms have improved. [facility] 11:06 11:03 01/21/2020 09:49 Hospitalization Ordered by Justin Guillen DO for Inpatient jose g Admission. Preliminary diagnosis is Diabetes mellitus due to underlying condition with ketoacidosis without coma; Chronic obstructive pulmonary disease with (acute) exacerbation; Abdominal tenderness; Elevated white blood cell count; Bandemia; Type 1 diabetes mellitus; Severe sepsis with septic shock; Hypotension; Acidosis - severe metabolic; Coagulation defect, unspecified; Acute and subacute hepatic failure. Bed requested for Intensive Care Unit. Status is Inpatient Admission. Condition is Serious. Problem is new. Symptoms have improved. [facility] 11:23 08:18 CORONAVIRUS+BRZ ordered. [facility]DA[facility] 11:58 11:11 01/21/2020 11:11 Transfer ordered to [facility]. Diagnosis is Acute jose g and subacute hepatic failure without coma - tylenol overdose, unintentional; Severe sepsis with septic shock; Abdominal tenderness; Chronic obstructive pulmonary disease, unspecified; Type 1 diabetes mellitus; Coagulation defect, unspecified; Vomiting. Reason for transfer: Higher level of care. Accepting physician is to [facility]. Condition is Critical. Problem is new. Symptoms have improved. [facility] 11:59 11:58 01/21/2020 11:11 Transfer ordered to [facility]. Diagnosis is Acute jose g and subacute hepatic failure without coma - tylenol overdose, unintentional; Severe sepsis with septic shock; Abdominal tenderness; Chronic obstructive pulmonary disease, unspecified; Type 1 diabetes mellitus; Coagulation defect, unspecified; Vomiting; Acute kidney failure; Acute pancreatitis; Elevated white blood cell count; Bandemia. Reason for transfer: Higher level of care. Accepting physician is to [facility]. Condition is Critical. Problem is new. Symptoms have improved. jose g 12:16 11:59 01/21/2020 11:11 Transfer ordered to [facility]. [facility] Diagnosis is Acute and subacute hepatic failure without coma - tylenol overdose, unintentional; Severe sepsis with septic shock; Abdominal tenderness; Chronic obstructive pulmonary disease, unspecified; Type 1 diabetes mellitus; Coagulation defect, unspecified; Vomiting; Acute kidney failure; Acute pancreatitis; Elevated white blood cell count; Bandemia. Reason for transfer: Higher level of care. Accepting physician is to [facility] , icu. Condition is Critical. Problem is new. Symptoms have improved. jose g 17:55 12:16 01/21/2020 11:11 Transfer ordered to [facility]. Diagnosis is Acute and subacute hepatic failure without coma - tylenol overdose, unintentional; Severe sepsis with septic shock; Abdominal tenderness; Chronic obstructive pulmonary disease, unspecified; Type 1 diabetes mellitus; Coagulation defect, unspecified; Vomiting; Acute kidney failure; Acute pancreatitis; Elevated white blood cell count; Bandemia. Reason for transfer: Higher level of care. Accepting physician is to [facility] , icu. Condition is Critical. Problem is new. Symptoms have improved. jose g
[2020-01-21] MEDS ORDERED: FENTANYL CITR 100 MCG/2 ML ONE (10:00)
[2020-01-21] MEDS ORDERED: METRONIDAZOLE 500mg IVPB 500 MG/100 ML BAG IV ONE (10:01)
[2020-01-21 10:05] LABS: Blood Gas Oxyhemoglobin 96.9 % (94-97)
[2020-01-21] MEDS ORDERED: SODIUM BICARB 50 MEQ/50ML VIAL ONE ×3 (10:24→12:19)
--- NOTE | 2020-01-21 10:24 | RAD REPORT ---
EXAM DESCRIPTION: RAD - Chest Single View - 01/21/2020 10:18 am CLINICAL HISTORY: Cough;Dyspnea;Abdominal distention Chest pain. COMPARISON: Chest Single View dated 12/21/2019 FINDINGS: Portable technique limits examination quality. The lungs are grossly clear. The heart is upper limit of normal in size. No displaced fractures. IMPRESSION: No acute intrathoracic process suspected.
[2020-01-21 10:50] LABS: Albumin 2.7 g/dL (3.4-5.0); Bilirubin Direct 4.6 mg/dL (0-0.2); Bilirubin Total 5.8 mg/dL (0.2-1.0); Magnesium 1.9 mg/dL (1.8-2.4); Potassium 4.7 mmol/L (3.5-5.1); Protein, Total 5.2 g/dL (6.4-8.2); Troponin (Emerg Dept Use Only) 0.81 ng/mL (0.0-0.045)
[2020-01-21] MEDS ORDERED: DOPAMINE/D5W 400 MG/250 ML BAG IV ONE (10:54)
[2020-01-21] MEDS ORDERED: INSULIN -REGULAR HUMAN 100 UNIT in NA CHLORIDE 0.9% 100 ML IV SCH (11:00)
[2020-01-21] MEDS ORDERED: Ringers Lactate 1,000 ML IV ONE (11:38)
[2020-01-21] MEDS ORDERED: PANTOPRAZOLE 40 MG INJ ONE (11:38)
[2020-01-21] MEDS ORDERED: LACTULOSE 20 GM/30 ML UCUP ONE (11:39)
[2020-01-21] MEDS ORDERED: NOREPINEPHRINE 4 MG in D5W 250 ML IV PRN (12:10)
[2020-01-21] MEDS ORDERED: VITAMIN K (ADULT) 10 MG/ML ONE (12:33)
[2020-01-21 12:34] LABS: Arterial Blood Carboxyhemoglob 0.2 % (0-1.5); Blood Gas Oxyhemoglobin 93.3 % (94-97); Blood O2 Saturation 94.5 % (92-98.5)
[2020-01-21 12:58] LABS: Barbiturates NEGATIVE (NEGATIVE); Benzodiazepines NEGATIVE (NEGATIVE); Cocaine NEGATIVE (NEGATIVE); METHAMPHETAM NEGATIVE (NEGATIVE); Methadone NEGATIVE (NEGATIVE); Opiates POSITIVE (NEGATIVE); Phencyclidine NEGATIVE (NEGATIVE); THC Cannibis NEGATIVE (NEGATIVE)
[2020-01-21] MEDS ORDERED: ACETYLCYSTEINE IV SCH (13:00)
[2020-01-21] MEDS ORDERED: D5W IV SCH (13:00)
[2020-01-21] MEDS ORDERED: D5W 1,000 ML with NA BICARB 8.4% 150 MEQ IV SCH ×2 (13:00)
[2020-01-21 13:16] LABS: Urine Blood 3+ (NEG); Urine Glucose NEGATIVE (NEG); Urine Protein NEGATIVE (NEG); Urine Specific Gravity >1.030 (1.005-1.030)
--- NOTE | 2020-01-21 15:20 | P.CNS ---
Date of Consult: 01/21/20 Reason for Consult: Evaluation for Admission Requesting Physician: Cuco Jimenez Primary Care Provider: none Chief Complaint: Shortness of breath, nausea and vomiting History of Present Illness: 54-year-old female with history of COPD, diabetes mellitus type 2 and hypertension. Patient presented to the emergency room with increasing shortness of breath. Patient also reported abdominal pain, nausea and vomiting. Mostly history came from the ER physician. I was called to evaluate the patient for admission. Admitted evaluation done due to significant abnormalities. Code sepsis was called in the emergency room. Blood pressure is for low with systolic around 80-90. Patient found to have DKA with a pH of 6.894, bicarb of 5.5. Sodium 126, potassium 4.7. Chloride 82, BUN of 26, creatinine 3.93 with a GFR of 12. Glucose 213. White count 15.9, hemoglobin 12.4. Platelet count 120. Other significant lab includes INR 3.93, lactic acid 22.1. Ammonia level elevated at 138. AST 4632. ALT 754. Alk-phos 526. Total bilirubin 5.8, direct bili 4.6. Lipase 21,000. Pro calcitonin 10.96. Tylenol level was 159. Patient was started on sepsis bolus protocol. Patient also placed on dopamine. Due to the significant abnormalities, lack of ICU, lack of GI services, the patient was transfer to [facility] [place] to further address her condition. Allergies ketorolac [From Toradol] Allergy (Verified 01/21/20 10:14) UNK Penicillins Allergy (Verified 01/21/20 10:14) UNK Home medications list reviewed: Yes - Past Medical/Surgical History -: Diabetes mellitus type 2 -: Hypertension -: COPD -: Chronic pain Past Surgical History: Unable to obtain Psychosocial/ Personal History: Patient lives at home - Family History Father Family History: Reviewed- Non-Contributory - Social History Smoking Status: Current every day smoker Alcohol use: Yes Place of Residence: Home Review of Systems General: As per HPI Eyes: Unremarkable ENT: Unremarkable Respiratory: Shortness of Breath, SOB with Excertion, As per HPI Cardiovascular: Edema Gastrointestinal: Nausea, Vomiting, Abdominal Pain, As per HPI Genitourinary: Unremarkable Musculoskeletal: Pedal edema, As per HPI Integumentary: Unremarkable Neurological: As per HPI Lymphatics: Unremarkable Physical Examination General: Alert, Oriented x1, Cooperative, Disheveled, Acute distress, Other (Patient appeared dusky) HEENT: Atraumatic, Other (Dry mucous membranes) Neck: Supple Respiratory: Expiratory wheezes, Inspiratory wheezes Cardiovascular: Normal pulses Gastrointestinal: Hypoactive, No masses, No rebound, No guarding, Tenderness (Abdominal pain noted to the epigastric region) Musculoskeletal: No tenderness, No warmth Integumentary: Tenderness/swelling (Edema to the lower extremity noted), Other (Skin the skin color) Neurological: Normal speech Laboratory Data (last 24 hrs) 01/21/20 11:10: Lipase 58375 H 01/21/20 09:25: Sodium 126 L, Potassium 4.7, BUN 26 H, Creatinine 3.97 H, Glucose 208 H, Magnesium 1.9, Total Bilirubin 5.8 H*, AST 4632 H*, ALT 754 H*, Alkaline Phosphatase 526 H 01/21/20 08:38: PT 45.6 H, INR 3.97 01/21/20 08:38: WBC 15.9 H, Hgb 12.4, Hct 41.9, Plt Count 120 L Conclusions/Impression: Impression: Dyspnea with multiorgan failure(acute hepatic/acute renal-stage 5/respiratory failure) complicated with suspected Tylenol overdose/DKA/COPD exacerbat ion/elevated troponin suspect NSTEMI Plan: Patient was evaluated in the emergency room for possible admission. After review of patient, patient with multiorgan failure with suspected Tylenol overdose. This is further complicated with acute hepatic, acute renal, acute respiratory failure. Patient also with DKA. Will recommend patient to be transferred to [facility] to further evaluate especially since we have no ICU beds/GI specialty care availability. Patient given sepsis protocol in the emergency room. Patient to get dopamine drip soon. Patient will need to be continued on vasopressor therapy in taking blood pressure. Patient will also need Mucomyst and monitoring of Tylenol level due to her acute hepatic failure. Patient will require insulin drip for her DKA. Will recommend to get drug screen to further evaluate. Patient will need further consultations with GI, renal, pulmonology, , cardiology and ICU specialty care. ER agree with plan to transfer. Time Spent Managing Pts care (In Minutes): 55
[2020-01-21] MEDS ORDERED: NA CHLORIDE 0.9% 500 ML ONE (16:57)
[2020-01-21 20:01] VITALS: BP 124/81; TEMP 97.1; O2SAT 99
--- NOTE | 2020-01-22 07:26 | EKG ---
Test Date: 2020-01-21 Test Time: 09:40:46 Supervisor Cell Maintenance: NELSY MEASUREMENT RESULTS: Intervals: Rate: 85 SD: 168 QRSD: 92 QT: 374 QTc: 445 [place]: P: 77 SD: 168 QRS: 65 T: 32 INTERPRETIVE STATEMENTS: Normal sinus rhythm ST abnormality, possible digitalis effect Abnormal ECG No previous ECG available for comparison Electronically Signed On 01-22-20 07:24:31 TALENT ASSISTANT by Brendon Lundberg
== END 2020-01-21 17:55 | disposition short-term general hospital (02) ==
LOC: ER 07:50
DX: K71.10 Toxic liver disease with hepatic necrosis, without coma (principal); T39.1X5A Adverse effect of 4-Aminophenol derivatives, initial encounter; A41.9 Sepsis, unspecified organism; R65.21 Severe sepsis with septic shock; E10.10 Type 1 diabetes mellitus with ketoacidosis without coma; N17.9 Acute kidney failure, unspecified; K85.90 Acute pancreatitis without necrosis or infection, unspecified; D72.825 Bandemia; D68.9 Coagulation defect, unspecified; J44.9 Chronic obstructive pulmonary disease, unspecified; R10.819 Abdominal tenderness, unspecified site; R11.10 Vomiting, unspecified; F17.210 Nicotine dependence, cigarettes, uncomplicated; Z20.828 Contact with and (suspected) exposure to other viral communicable diseases; Z88.0 Allergy status to penicillin; Z88.8 Allergy status to other drugs, medicaments and biological substances
CPT/HCPCS: 36415; 71045; 71250; 74176; 80048; 80076; 80307; 80329; 81003; 82140; 82805; 82947; 83605; 83690; 83735; 83880; 84145; 84484; 85025; 85610; 87040; 87086; 87088; 87804; 93005; 96365; 96366; 96367; 96368; 96372; 96375; 99285; C9113; J0132; J1265; J1720; J3010; J3430; J7030; J7040; J7060; J7120; U0003